=== PATIENT | female | born 1950 | race Caucasian/White ===

== ENCOUNTER → 2017-09-22 13:41 | Outpatient (CLI) | payer MEDICARE, OTHER, SELFPAY | PROVIDERS: Family Provider Family Medicine; PCP Family Medicine; Visit Provider Family Medicine | DX: R14.0 Abdominal distension (gaseous) (principal); R10.9 Unspecified abdominal pain | CPT/HCPCS: 91065 ==

== ENCOUNTER → 2017-10-31 08:25 | Outpatient (CLI) | payer MEDICARE, OTHER, SELFPAY ==
[2017-10-31 10:08] LABS: Add Manual Diff / Slide Review NO; Basophils Percent Auto 0.9 % (0-2); Eosinophils Percent Auto 4.2 % (2-4); Hematocrit 43.4 % (36-46); Hemoglobin 14.8 g/dL (12.0-16.0); Lymphocytes Percent Auto 38.6 % (25-40); Mean Corpuscular HGB Conc 34.1 % (30-36); Mean Corpuscular Volume 90.9 fL (80-100); Monocytes Percent Auto 9.4 % (3-14); Neutrophils Absolute Auto 2400 /uL (3000-5900); Neutrophils Percent Auto 46.9 % (50-75); Platelet Count 293 X10^3/uL (150-400); Red Blood Cell Count 4.78 X10^6/uL (4.0-5.2); Red Cell Distribution Width 12.5 % (11.6-14.8)
[2017-10-31 10:36] LABS: Alanine Aminotransferase 29 IU/L (9-52); Albumin 4.6 g/dL (3.5-5.0); Albumin Globulin Ratio 1.5 (1.0-2.8); Alkaline Phosphatase 44 U/L (38-126); Aspartate Aminotransferase 35 IU/L (14-36); BUN Creatinine Ratio 16.3 (6-22); Bilirubin Total 0.8 mg/dL (0.2-1.3); Blood Urea Nitrogen 13 mg/dL (7-17); Calcium 9.5 mg/dL (8.4-10.2); Carbon Dioxide 32 mmol/L (22-32); Chloride 100 mmol/L (98-107); Cholesterol 242 mg/dL (140-199); Estimated Glomerular Filt Rate > 60.0 mL/min (>60); Glucose 99 mg/dL (80-110); HDL Cholesterol 92 mg/dL (40-60); HEMOLYSIS < 15 (0-50); LDL Cholesterol Calculated 138 mg/dL (<100); Potassium 3.7 mmol/L (3.4-5.1); Sodium 142 mmol/L (137-145); Total Protein 7.6 g/dL (6.3-8.2); Triglycerides 62 mg/dL (35-150)
[2017-10-31 11:10] LABS: TSH w/ Reflex to FT4 0.83 uIU/mL (0.47-4.68)
== END ==
PROVIDERS: PCP Family Medicine; Visit Provider Family Medicine
DX: E03.9 Hypothyroidism, unspecified (principal); E78.2 Mixed hyperlipidemia; R03.0 Elevated blood-pressure reading, without diagnosis of hypertension
CPT/HCPCS: 36415; 80053; 80061; 84443; 85025

== ENCOUNTER → 2017-12-17 10:10 | Outpatient (CLI) | payer MEDICARE, OTHER, SELFPAY | PROVIDERS: Visit Provider Nurse Practitioner Family | DX: Z79.890 Hormone replacement therapy (principal); Z53.9 Procedure and treatment not carried out, unspecified reason ==

== ENCOUNTER → 2017-12-19 09:40 | Outpatient (CLI) | payer MEDICARE, OTHER, SELFPAY | PROVIDERS: Visit Provider Nurse Practitioner Family | DX: M85.851 Other specified disorders of bone density and structure, right thigh (principal); Z78.0 Asymptomatic menopausal state; E07.9 Disorder of thyroid, unspecified; Z90.722 Acquired absence of ovaries, bilateral | CPT/HCPCS: 77080 ==

== ENCOUNTER → 2018-03-02 13:27 | Outpatient (CLI) | payer MEDICARE, OTHER, SELFPAY ==
--- NOTE | 2018-03-02 13:34 | DI.MG.S_ITS ---
BILATERAL DIGITAL SCREENING MAMMOGRAM 3D/2D WITH CAD: 03/02/2018 CLINICAL: Routine screening. Comparison is made to exams dated: 03/15/2015 mammogram, 03/24/2013 mammogram, 03/18/2012 mammogram, and 03/07/2011 mammogram - [facility]. There are scattered fibroglandular elements in both breasts. Current study was also evaluated with a Computer Aided Detection (CAD) system. No significant masses, calcifications, or other findings are seen in either breast. There has been no significant interval change. IMPRESSION: NEGATIVE There is no mammographic evidence of malignancy. A 1 year screening mammogram is recommended. This exam was interpreted at Station ID: [id number]. NOTE: For mammograms, a report in lay terms will be sent to the patient. Approximately 15% of breast malignancies will not be visualized mammographically. In the management of a palpable breast mass, a negative mammogram must not discourage biopsy of a clinically suspicious lesion. Electronically Signed By: Palmer bui/codey:03/02/2018 20:39:57 letter sent: Normal Exam ACR BI-RADS Category 1: Negative 3341F
== END ==
PROVIDERS: PCP Family Medicine; Visit Provider Nurse Practitioner Family
DX: Z12.31 Encounter for screening mammogram for malignant neoplasm of breast (principal)
CPT/HCPCS: 77063; 77067

== ENCOUNTER → 2018-03-10 15:31 | Outpatient (CLI) | payer MEDICARE, OTHER, SELFPAY ==
--- NOTE | 2018-03-10 15:33 | DI.RAD.S_ITS ---
PROCEDURE: XR KNEE LT 3V INDICATIONS: L knee pain after fall TECHNIQUE: 3 views of the knee were acquired. COMPARISON: None. FINDINGS: Bones: No fractures or dislocations. No suspicious bony lesions. There appear to be early degenerative changes within the patellofemoral compartment with a small developing marginal osteophyte along the articular surface of the proximal and distal margins of the patella. Soft tissues: No joint effusion. No suspicious soft tissue calcifications. IMPRESSION: Early degenerative changes of the left knee. No fractures. Dictated by: Olivier Chan M.D. on 03/10/2018 at 15:27 Approved by: Olivier Chan M.D. on 03/10/2018 at 15:28
== END ==
PROVIDERS: Visit Provider Physician Assistant
DX: M25.562 Pain in left knee (principal); M17.12 Unilateral primary osteoarthritis, left knee
CPT/HCPCS: 73562

== ENCOUNTER → 2018-04-10 15:41 | Outpatient (CLI) | payer MEDICARE, OTHER, SELFPAY ==
[2018-04-10 16:14] LABS: Influenza A and B by PCR Rapid Negative (Negative)
== END ==
PROVIDERS: PCP Family Medicine; Visit Provider Physician Assistant
DX: R68.89 Other general symptoms and signs (principal)
CPT/HCPCS: 87400

== ENCOUNTER → 2018-12-02 09:56 | Outpatient (CLI) | payer MEDICARE, OTHER, SELFPAY ==
[2018-12-02 10:40] LABS: Add Manual Diff / Slide Review NO; Basophils Absolute Auto 0 /uL (0-100); Basophils Percent Auto 0.7 % (0-2); Eosinophils Absolute Auto 100 /uL (0-450); Eosinophils Percent Auto 1.7 % (2-4); Hematocrit 43.8 % (36-46); Hemoglobin 14.7 g/dL (12.0-16.0); Lymphocytes Absolute Auto 1200 /uL (1100-4500); Lymphocytes Percent Auto 19.5 % (25-40); Mean Corpuscular HGB Conc 33.5 % (30-36); Mean Corpuscular Hemoglobin 30.8 PG (26-34); Mean Corpuscular Volume 92.1 fL (80-100); Monocytes Absolute Auto 400 /uL (0-900); Neutrophils Absolute Auto 4200 /uL (1500-7000); Neutrophils Percent Auto 71.1 % (50-75); Platelet Count 263 X10^3/uL (150-400); Red Blood Cell Count 4.76 X10^6/uL (4.0-5.2); Red Cell Distribution Width 12.6 % (11.6-14.8); White Blood Cell Count 5.9 X10^3/uL (4.5-11.0)
[2018-12-02 11:31] LABS: Alanine Aminotransferase 22 IU/L (9-52); Albumin 4.5 g/dL (3.5-5.0); Albumin Globulin Ratio 1.7 (1.0-2.8); Alkaline Phosphatase 43 U/L (38-126); Aspartate Aminotransferase 24 IU/L (14-36); BUN Creatinine Ratio 15.7 (6-22); Bilirubin Total 0.7 mg/dL (0.2-1.3); Blood Urea Nitrogen 11 mg/dL (7-17); Calcium 9.7 mg/dL (8.4-10.2); Carbon Dioxide 30 mmol/L (22-32); Chloride 100 mmol/L (98-107); Cholesterol 232 mg/dL (140-199); Estimated Glomerular Filt Rate > 60.0 mL/min (>60); Globulin 2.7 g/dL (1.7-4.1); Glucose 96 mg/dL (80-110); HDL Cholesterol 105 mg/dL (40-60); HEMOLYSIS < 15 (0-50); LDL Cholesterol Calculated 111 mg/dL (<100); Sodium 139 mmol/L (137-145); Total Protein 7.2 g/dL (6.3-8.2); Triglycerides 78 mg/dL (35-150)
[2018-12-02 11:34] LABS: Free T3, Triiodothyronine Free 2.73 pg/mL (2.77-5.27); Free T4, Direct Thyroxine 1.55 ng/dL (0.78-2.19)
[2018-12-02 11:48] LABS: Thyroid Stimulating Hormone 0.68 uIU/mL (0.47-4.68)
[2018-12-02 12:20] LABS: Creatinine Urine Random 73.9 mg/dL
[2018-12-02 12:26] LABS: Microalbumi Creatinin Ratio Ur 8.1 ug/mg CR (<30); Microalbumin Urine Random < 0.6 mg/dL (0-1.6)
== END ==
PROVIDERS: PCP Family Medicine; Visit Provider Family Medicine
DX: E03.9 Hypothyroidism, unspecified (principal); E78.5 Hyperlipidemia, unspecified; I10 Essential (primary) hypertension
CPT/HCPCS: 36415; 80053; 80061; 82043; 82570; 84439; 84443; 84481; 85025

== ENCOUNTER → 2019-01-12 13:40 | Outpatient (CLI) | payer MEDICARE, OTHER, SELFPAY ==
--- NOTE | 2019-01-12 15:10 | PM.TREADMILL ---
Cardiac Stress Test Report Referral & Results Date Patient Seen: 01/12/19 Requesting provider: Klaudia Yost Indication: Chest discomfort Rest ECG: Unremarkable Procedure Note: Today following both written and verbal informed consent, the patient was exercised according to a standard Kelvin protocol. The patient exercised for a total of 7 minutes 32 seconds achieving a maximum heart rate of 181. Patient's maximum systolic blood pressure was 180. This was an estimated 10.1 MET's. There are no ST-T segment changes identified Normal heart rate and blood pressure response Functional aerobic impairment rated approximately-15% on the active scale or 50% better than average Occasional PVC Impression: No ECG evidence of ischemia Excellent exercise capacity Please note: Actual ECG tracings can be found in the PACS system.
== END ==
PROVIDERS: PCP Family Medicine; Visit Provider Family Medicine
DX: I10 Essential (primary) hypertension (principal); R06.02 Shortness of breath; R07.9 Chest pain, unspecified
CPT/HCPCS: 93016; 93017; 93018

== ENCOUNTER → 2020-01-06 08:32 | Outpatient (CLI) | payer MEDICARE, OTHER, SELFPAY ==
[2020-01-06 09:06] LABS: Add Manual Diff / Slide Review NO; Basophils Absolute Auto 0 /uL (0-100); Eosinophils Absolute Auto 200 /uL (0-450); Eosinophils Percent Auto 3.5 % (2-4); Hematocrit 42.6 % (36-46); Hemoglobin 14.4 g/dL (12.0-16.0); Lymphocytes Absolute Auto 1700 /uL (1100-4500); Lymphocytes Percent Auto 35.4 % (25-40); Mean Corpuscular HGB Conc 33.8 % (30-36); Mean Corpuscular Hemoglobin 30.8 PG (26-34); Mean Corpuscular Volume 91.1 fL (80-100); Monocytes Absolute Auto 500 /uL (0-900); Monocytes Percent Auto 9.2 % (3-14); Neutrophils Absolute Auto 2500 /uL (1500-7000); Neutrophils Percent Auto 50.9 % (50-75); Platelet Count 251 X10^3/uL (150-400); Red Blood Cell Count 4.67 X10^6/uL (4.0-5.2); Red Cell Distribution Width 12.5 % (11.6-14.8); White Blood Cell Count 4.9 X10^3/uL (4.5-11.0)
[2020-01-06 09:38] LABS: Alanine Aminotransferase 23 IU/L (<35); Albumin 4.3 g/dL (3.5-5.0); Albumin Globulin Ratio 1.5 (1.0-2.8); Alkaline Phosphatase 41 U/L (38-126); Aspartate Aminotransferase 28 IU/L (14-36); BUN Creatinine Ratio 15.1 (6-22); Bilirubin Total 0.8 mg/dL (0.2-1.3); Blood Urea Nitrogen 13 mg/dL (7-17); Calcium 9.6 mg/dL (8.4-10.2); Carbon Dioxide 33 mmol/L (22-32); Chloride 102 mmol/L (98-107); Cholesterol 238 mg/dL (140-199); Estimated Glomerular Filt Rate > 60.0 mL/min (>60); Globulin 2.9 g/dL (1.7-4.1); Glucose 101 mg/dL (80-110); HDL Cholesterol 106 mg/dL (40-60); HEMOLYSIS < 15 (0-50); LDL Cholesterol Calculated 120 mg/dL (<100); Potassium 3.9 mmol/L (3.4-5.1); Sodium 139 mmol/L (137-145); Total Protein 7.2 g/dL (6.3-8.2); Triglycerides 62 mg/dL (35-150)
[2020-01-06 09:40] LABS: Creatinine Urine Random 107.8 mg/dL
[2020-01-06 09:48] LABS: Microalbumin Urine Random < 0.6 mg/dL (0-1.6)
[2020-01-06 09:53] LABS: Free T3, Triiodothyronine Free 2.82 pg/mL (2.77-5.27); Free T4, Direct Thyroxine 1.15 ng/dL (0.78-2.19)
[2020-01-06 10:07] LABS: Thyroid Stimulating Hormone 0.334 uIU/mL (0.47-4.68)
== END ==
PROVIDERS: PCP Family Medicine; Referring Provider Family Medicine; Visit Provider Family Medicine
DX: E03.9 Hypothyroidism, unspecified (principal); E78.5 Hyperlipidemia, unspecified; I10 Essential (primary) hypertension
CPT/HCPCS: 36415; 80053; 80061; 82043; 82570; 84439; 84443; 84481; 85025

== ENCOUNTER → 2020-02-17 12:34 | Outpatient (CLI) | payer MEDICARE, OTHER, SELFPAY | PROVIDERS: PCP Family Medicine; Referring Provider Family Medicine; Visit Provider Family Medicine | DX: Z78.0 Asymptomatic menopausal state (principal); E03.9 Hypothyroidism, unspecified; Z79.890 Hormone replacement therapy; Z90.722 Acquired absence of ovaries, bilateral; Z82.62 Family history of osteoporosis | CPT/HCPCS: 77080 ==

== ENCOUNTER → 2020-08-22 11:15 | Outpatient (CLI) | payer MEDICARE, SELFPAY ==
--- NOTE | 2020-08-22 11:17 | DI.MG.S_ITS ---
BILATERAL DIGITAL SCREENING MAMMOGRAM 3D/2D WITH CAD: 08/22/2020 CLINICAL: Routine screening. Comparison is made to exams dated: 03/02/2018 mammogram, 03/15/2015 mammogram, and 03/24/2013 mammogram - [facility]. There are scattered fibroglandular elements in both breasts. Current study was also evaluated with a Computer Aided Detection (CAD) system. No significant masses, calcifications, or other findings are seen in either breast. There has been no significant interval change. IMPRESSION: NEGATIVE There is no mammographic evidence of malignancy. A 1 year screening mammogram is recommended. This exam was interpreted at Station ID: [id number]. NOTE: For mammograms, a report in lay terms will be sent to the patient. Approximately 15% of breast malignancies will not be visualized mammographically. In the management of a palpable breast mass, a negative mammogram must not discourage biopsy of a clinically suspicious lesion. Electronically Signed By: Sai Khanna M.D., jr/codey:08/22/2020 11:37:32 letter sent: Normal Exam ACR BI-RADS Category 1: Negative 3341F
== END ==
PROVIDERS: PCP Family Medicine; Referring Provider Family Medicine; Visit Provider Family Medicine
DX: Z12.31 Encounter for screening mammogram for malignant neoplasm of breast (principal)
CPT/HCPCS: 77063; 77067

== ENCOUNTER → 2021-01-15 07:33 | Outpatient (CLI) | payer MEDICARE, OTHER, SELFPAY ==
[2021-01-15 08:08] LABS: Add Manual Diff / Slide Review NO; Basophils Absolute Auto 100 /uL (0-100); Basophils Percent Auto 1.2 % (0-2); Eosinophils Absolute Auto 100 /uL (0-450); Eosinophils Percent Auto 2.7 % (2-4); Hematocrit 41.7 % (36-46); Hemoglobin 14.1 g/dL (12.0-16.0); Lymphocytes Absolute Auto 1800 /uL (1100-4500); Lymphocytes Percent Auto 35.9 % (25-40); Mean Corpuscular HGB Conc 33.7 % (30-36); Mean Corpuscular Hemoglobin 30.2 PG (26-34); Mean Corpuscular Volume 89.6 fL (80-100); Monocytes Absolute Auto 500 /uL (0-900); Monocytes Percent Auto 8.8 % (3-14); Neutrophils Absolute Auto 2600 /uL (1500-7000); Neutrophils Percent Auto 51.4 % (50-75); Platelet Count 268 X10^3/uL (150-400); Red Blood Cell Count 4.65 X10^6/uL (4.0-5.2); Red Cell Distribution Width 12.7 % (11.6-14.8); White Blood Cell Count 5.1 X10^3/uL (4.5-11.0)
[2021-01-15 08:28] LABS: Alanine Aminotransferase 17 IU/L (<35); Albumin 4.4 g/dL (3.5-5.0); Albumin Globulin Ratio 1.7 (1.0-2.8); Alkaline Phosphatase 38 U/L (38-126); Aspartate Aminotransferase 26 IU/L (14-36); BUN Creatinine Ratio 19.2 (6-22); Bilirubin Total 0.6 mg/dL (0.2-1.3); Blood Urea Nitrogen 14 mg/dL (7-17); Calcium 9.8 mg/dL (8.4-10.2); Carbon Dioxide 31 mmol/L (22-32); Chloride 103 mmol/L (98-107); Cholesterol 222 mg/dL (140-199); Estimated Glomerular Filt Rate > 60.0 mL/min (>60); Globulin 2.6 g/dL (1.7-4.1); Glucose 96 mg/dL (80-110); HDL Cholesterol 87 mg/dL (40-60); HEMOLYSIS < 15 (0-50); LDL Cholesterol Calculated 121 mg/dL (<100); Potassium 4.1 mmol/L (3.4-5.1); Sodium 140 mmol/L (137-145); Triglycerides 72 mg/dL (35-150)
[2021-01-15 08:53] LABS: TSH w/ Reflex to FT4 0.79 uIU/mL (0.47-4.68)
== END ==
PROVIDERS: PCP Family Medicine; Referring Provider Family Medicine; Visit Provider Family Medicine
DX: E03.9 Hypothyroidism, unspecified (principal); E78.2 Mixed hyperlipidemia; I10 Essential (primary) hypertension
CPT/HCPCS: 36415; 80053; 80061; 84443; 85025

== ENCOUNTER → 2021-10-03 15:21 | Outpatient (CLI) | payer MEDICARE, OTHER, SELFPAY ==
[2021-10-03 17:36] LABS: TSH w/ Reflex to FT4 0.66 uIU/mL (0.47-4.68)
== END ==
PROVIDERS: PCP Family Medicine; Referring Provider Physician Assistant; Visit Provider Physician Assistant
DX: R53.83 Other fatigue (principal)
CPT/HCPCS: 36415; 84443

== ENCOUNTER → 2022-02-15 07:38 | Outpatient (CLI) | payer MEDICARE, OTHER, SELFPAY ==
[2022-02-15 09:08] LABS: Add Manual Diff / Slide Review NO; Basophils Absolute Auto 0 /uL (0-100); Basophils Percent Auto 0.8 % (0-2); Eosinophils Absolute Auto 200 /uL (0-450); Eosinophils Percent Auto 4.2 % (2-4); Hematocrit 40.6 % (36-46); Hemoglobin 14.1 g/dL (12.0-16.0); Lymphocytes Absolute Auto 1400 /uL (1100-4500); Lymphocytes Percent Auto 37.5 % (25-40); Mean Corpuscular HGB Conc 34.7 % (30-36); Mean Corpuscular Hemoglobin 30.7 PG (26-34); Mean Corpuscular Volume 88.5 fL (80-100); Monocytes Absolute Auto 400 /uL (0-900); Monocytes Percent Auto 10.1 % (3-14); Neutrophils Absolute Auto 1800 /uL (1500-7000); Neutrophils Percent Auto 47.4 % (50-75); Platelet Count 264 X10^3/uL (150-400); Red Blood Cell Count 4.59 X10^6/uL (4.0-5.2); Red Cell Distribution Width 12.7 % (11.6-14.8); White Blood Cell Count 3.7 X10^3/uL (4.5-11.0)
[2022-02-15 10:00] LABS: Alanine Aminotransferase 21 IU/L (<35); Albumin 4.3 g/dL (3.5-5.0); Albumin Globulin Ratio 1.6 (1.0-2.8); Alkaline Phosphatase 45 U/L (38-126); Aspartate Aminotransferase 25 IU/L (14-36); Bilirubin Total 0.7 mg/dL (0.2-1.3); Blood Urea Nitrogen 10 mg/dL (7-17); Calcium 9.4 mg/dL (8.4-10.2); Carbon Dioxide 29 mmol/L (22-32); Chloride 102 mmol/L (98-107); Estimated Glomerular Filt Rate > 60 mL/min (>60); Globulin 2.7 g/dL (1.7-4.1); Glucose 90 mg/dL (80-110); HEMOLYSIS < 15 (0-50); Potassium 3.8 mmol/L (3.4-5.1); Sodium 138 mmol/L (137-145)
[2022-02-15 10:21] LABS: TSH w/ Reflex to FT4 1.05 uIU/mL (0.47-4.68)
== END ==
PROVIDERS: PCP Family Medicine; Referring Provider Family Medicine; Visit Provider Family Medicine
DX: K52.839 Microscopic colitis, unspecified (principal); E03.9 Hypothyroidism, unspecified
CPT/HCPCS: 36415; 80053; 84443; 85025

== ENCOUNTER → 2022-02-25 09:21 | Outpatient (CLI) | payer MEDICARE, OTHER, SELFPAY ==
[2022-02-25 10:21] LABS: Cholesterol 230 mg/dL (140-199); HDL Cholesterol 94 mg/dL (40-60); LDL Cholesterol Calculated 124 mg/dL (<100); Triglycerides 61 mg/dL (35-150)
== END ==
PROVIDERS: PCP Family Medicine; Referring Provider Family Medicine; Visit Provider Family Medicine
DX: I10 Essential (primary) hypertension (principal); E78.2 Mixed hyperlipidemia
CPT/HCPCS: 36415; 80061

== ENCOUNTER → 2022-03-13 08:51 | Outpatient (CLI) | payer MEDICARE, OTHER, SELFPAY ==
--- NOTE | 2022-03-13 08:52 | DI.US.S_ITS ---
PROCEDURE: US ABDOMEN LIMITED INDICATIONS: RUQ PAIN TECHNIQUE: Real-time scanning was performed of the abdominal and retroperitoneal organs, with image documentation. COMPARISON: None. FINDINGS: Liver: Liver is normal in size and homogeneous in echotexture. There is a simple cyst within the left hepatic lobe which measures 4.4 x 2.8 x 5.4 cm. Gallbladder: The gallbladder wall measures 1.9 mm in diameter. A nonobstructing calculus is present within the gallbladder fundus. Biliary ducts: Intrahepatic bile ducts are non-dilated. Extrahepatic bile duct caliber measures 6.3 mm. Normal is 6-7 mm or less in diameter, or 10 mm or less post-cholecystectomy. IMPRESSION: 1. Cholelithiasis. No findings to suggest choledocholithiasis or acute cholecystitis. 2. Simple left hepatic lobe cyst. It is unclear if this may be associated with the patient's pain. Please correlate with physical exam findings and area of pain. Dictated by: Nida Portillo M.D. on 03/13/2022 at 13:06 Approved by: Nida Portillo M.D. on 03/13/2022 at 13:21
== END ==
PROVIDERS: PCP Family Medicine; Referring Provider Family Medicine; Visit Provider Family Medicine
DX: K76.89 Other specified diseases of liver (principal); K80.20 Calculus of gallbladder without cholecystitis without obstruction; R10.11 Right upper quadrant pain
CPT/HCPCS: 76705

== ENCOUNTER → 2022-10-16 06:56 | Outpatient (CLI) | payer MEDICARE, OTHER, SELFPAY ==
[2022-10-16 07:46] LABS: Add Manual Diff / Slide Review NO; Basophils Absolute Auto 0 /uL (0-100); Basophils Percent Auto 1.1 % (0-2); Eosinophils Absolute Auto 200 /uL (0-450); Eosinophils Percent Auto 4.3 % (2-4); Hematocrit 38.6 % (36-46); Hemoglobin 13.2 g/dL (12.0-16.0); Lymphocytes Absolute Auto 1600 /uL (1100-4500); Lymphocytes Percent Auto 38.4 % (25-40); Mean Corpuscular HGB Conc 34.3 % (30-36); Mean Corpuscular Hemoglobin 30.3 PG (26-34); Mean Corpuscular Volume 88.2 fL (80-100); Monocytes Absolute Auto 300 /uL (0-900); Monocytes Percent Auto 8.3 % (3-14); Neutrophils Absolute Auto 2000 /uL (1500-7000); Neutrophils Percent Auto 47.9 % (50-75); Platelet Count 268 X10^3/uL (150-400); Red Blood Cell Count 4.37 X10^6/uL (4.0-5.2); White Blood Cell Count 4.2 X10^3/uL (4.5-11.0)
[2022-10-16 08:12] LABS: HEMOLYSIS < 15 (0-50); Iron 110 ug/dL (37-170)
[2022-10-16 08:14] LABS: Alanine Aminotransferase 23 IU/L (<35); Albumin 4.1 g/dL (3.5-5.0); Albumin Globulin Ratio 1.6 (1.0-2.8); Alkaline Phosphatase 38 U/L (38-126); Amylase 84 U/L (30-110); Aspartate Aminotransferase 25 IU/L (14-36); BUN Creatinine Ratio 17.4 (6-22); Bilirubin Total 0.6 mg/dL (0.2-1.3); Blood Urea Nitrogen 12 mg/dL (7-17); Carbon Dioxide 32 mmol/L (22-32); Chloride 102 mmol/L (98-107); Cholesterol 217 mg/dL (140-199); Estimated Glomerular Filt Rate > 60 mL/min (>60); Globulin 2.6 g/dL (1.7-4.1); Glucose 111 mg/dL (80-110); HDL Cholesterol 94 mg/dL (40-60); HEMOLYSIS < 15 (0-50); LDL Cholesterol Calculated 111 mg/dL (<100); Lipase 77 U/L (23-300); Potassium 3.6 mmol/L (3.4-5.1); Sodium 137 mmol/L (137-145); Total Protein 6.7 g/dL (6.3-8.2); Triglycerides 60 mg/dL (35-150)
[2022-10-16 08:22] LABS: Percent Iron Saturation 31 % (15-50); Total Iron Binding Capacity 350 ug/dL (265-497); Transferrin 255 mg/dL (206-381)
[2022-10-16 15:05] LABS: Vitamin B12 910 pg/mL (239-931)
== END ==
PROVIDERS: PCP Naturopath; Referring Provider Nurse Practitioner Family; Visit Provider Nurse Practitioner Family
DX: R10.13 Epigastric pain (principal); I10 Essential (primary) hypertension; R53.83 Other fatigue; K51.80 Other ulcerative colitis without complications; M62.831 Muscle spasm of calf; F41.9 Anxiety disorder, unspecified; F32.A Depression, unspecified; E78.41 Elevated Lipoprotein(a)
CPT/HCPCS: 36415; 80053; 80061; 82150; 82607; 83540; 83550; 83690; 85025

== ENCOUNTER → 2023-05-07 | Outpatient (CLI) | payer MEDICARE, OTHER, SELFPAY ==
--- NOTE | 2023-05-07 15:23 | DI.RAD.S_ITS ---
Bone Density Report Name: AURORA HOLCOMB Age: 72 Sex: Female Ethnicity: White Date of : 1950 Indication: postmenopausal; screening for osteoporosis; parental hip fracture; history of glucocorticoids; Referring Provider: UNSPECIFIED Study: Bone densitometry was performed. Exam Date: May 07, 2023 Accession number: [id number] Bone Density: Region BMD T-score Z-score Classification AP Spine(L1-L4) 0.970 -0.7 1.6 Normal Femoral Neck (Left) 0.750 -0.9 1.1 Normal Total Hip (Left) 0.871 -0.6 1.1 Normal Femoral Neck (Right) 0.707 -1.3 0.7 Osteopenia Total Hip (Right) 0.790 -1.2 0.4 Osteopenia Total Hip Mean 0.831 -0.9 0.8 Normal World Health Organization criteria for BMD impression classify patients as: Normal (T-score at or above -1.0), Osteopenia (T-score between -1.0 and -2.5), or Osteoporosis (T-score at or below -2.5). 10-year Fracture Risk(1): Major Osteoporotic Fracture 24% Hip Fracture 8.9% Reported Risk Factors: [place] (), Neck BMD=0.707, BMI=24.4, parental fracture, glucocorticoids (1) FRAX(R) Version 3.08. Fracture probability calculated for an untreated patient. Fracture probability may be lower if the patient has received treatment. Previous Exams: -- Region Exam Age BMD T-score BMD Change BMD Change Date g/cm2 vs Baseline vs Previous -- AP Spine (L1-L4) 05/07/2023 72 0.970 -0.7 -0.148 (-13.2%)# -0.122 (-11.2%)# 02/17/2020 69 1.091 0.4 -0.026 (-2.3%)* 0.007 (0.7%) 12/19/2017 67 1.084 0.3 -0.033 (-3.0%)* -0.033 (-3.0%)* 10/23/2015 65 1.118 0.6 Total Hip(Left) 05/07/2023 72 0.871 -0.6 -0.053 (-5.8%)# -0.015 (-1.7%)# 02/17/2020 69 0.886 -0.5 -0.038 (-4.1%)* 0.032 (3.8%)* 12/19/2017 67 0.854 -0.7 -0.071 (-7.6%)* -0.071 (-7.6%)* 10/23/2015 65 0.925 -0.1 Total Hip(Right) 05/07/2023 72 0.790 -1.2 -0.126 (-13.7%)# -0.043 (-5.1%)# 02/17/2020 69 0.833 -0.9 -0.083 (-9.1%)* 0.008 (0.9%) 12/19/2017 67 0.825 -1.0 -0.091 (-9.9%)* -0.091 (-9.9%)* 10/23/2015 65 0.916 -0.2 -- *Denotes significance at 95% confidence level, LSC for AP Spine = 0.022 g/cm2, LSC for Total Hip = 0.027 g/cm2 # Denotes dissimilar scan types or analysis methods Impression: The patient has low bone mass, based on the Right Femoral Neck T-score. The patient has an estimated ten-year risk of hip fracture of 8.9% and an estimated ten-year risk of major fracture of 24%, based on the WHO FRAX algorithm. The patient has risk factors, including: parental hip fracture, history of glucocorticoid therapy. No significant bone loss was observed. Discussion: BONE DENSITY IS LOW AT ONE OR MORE SKELETAL SITES. THE PATIENT'S BMD AND CLINICAL RISK FACTORS CONTRIBUTE TO THIS PATIENT'S HIGH RISK OF FRACTURE. This patient's lowest T-score is low at one or more skeletal sites. It meets the World Health Organization's (WHO) criteria for low bone mass (T-score between -1.0 and -2.5). The patient's 10-year risk of hip fracture and 10 year risk of a major osteoporotic fracture as calculated by FRAX exceeds the threshold where pharmacological therapy is recommended by the National Osteoporosis Foundation (NOF). However, all treatment decisions require clinical judgment and consideration of individual patient factors, including patient preferences, comorbidities, previous drug use, risk factors not captured in the FRAX model (e.g., frailty, falls, vitamin D deficiency, increased bone turnover, interval significant decline in bone density) and possible under or overestimation of fracture risk by FRAX. The patient should follow a healthful lifestyle (good nutrition with adequate calcium and vitamin D, and appropriate weight-bearing exercise). Follow-Up: Consider a repeat BMD and Vertebral Fracture Assessment (VFA) exam in 2 years or sooner if medically necessary, to reassess this patient's status. Reported by: [facility] KRISTEN VERAS M.D. on 05/07/2023 3:45:00 PM.
--- NOTE | 2023-05-07 15:23 | DI.MG.S_ITS ---
BILATERAL DIGITAL SCREENING MAMMOGRAM 3D/2D WITH CAD: 05/07/2023 CLINICAL: Routine screening. Comparison is made to exams dated: 08/22/2020 mammogram, 03/02/2018 mammogram, and 03/15/2015 mammogram - [facility]. Both breasts are heterogeneously dense, which may obscure small masses (category c / 51-75% glandular tissue). Current study was also evaluated with a Computer Aided Detection (CAD) system. No significant masses, calcifications, or other findings are seen in either breast. There has been no significant interval change. IMPRESSION: NEGATIVE There is no mammographic evidence of malignancy. A 1 year screening mammogram is recommended. Based on the Tyrer Cuzick model (a risk assessment model) the patient's lifetime risk is 5.7% and her 10 year risk is 4.2%. According to the ACR, ACS, and NCCN guidelines, an annual breast MRI exam along with mammogram is recommended if the patient's lifetime risk is 20% or greater. This exam was interpreted at Station ID: [id number]. NOTE: For mammograms, a report in lay terms will be sent to the patient. Approximately 15% of breast malignancies will not be visualized mammographically. In the management of a palpable breast mass, a negative mammogram must not discourage biopsy of a clinically suspicious lesion. Electronically Signed By: Brendan bajwa/codey:05/08/2023 16:35:56 letter sent: Normal Exam ACR BI-RADS Category 1: Negative 3341F
== END ==
PROVIDERS: PCP Naturopath; Referring Provider Nurse Practitioner Family; Visit Provider Nurse Practitioner Family
DX: M85.851 Other specified disorders of bone density and structure, right thigh (principal); Z12.31 Encounter for screening mammogram for malignant neoplasm of breast; R92.333 Mammographic heterogeneous density, bilateral breasts; Z78.0 Asymptomatic menopausal state
CPT/HCPCS: 77063; 77067; 77080

== ENCOUNTER → 2023-08-08 15:48 | Outpatient (CLI) | payer MEDICARE, OTHER, SELFPAY ==
--- NOTE | 2023-08-08 15:54 | DI.US.S_ITS ---
PROCEDURE: US ABDOMEN LIMITED INDICATIONS: RIGHT UPPER QUADRANT PAIN TECHNIQUE: Real-time scanning was performed of the abdominal and retroperitoneal organs, with image documentation. COMPARISON: [facility], , US ABDOMEN LIMITED, 03/13/2022, 8:58. FINDINGS: Liver: Homogeneous echotexture. No evidence of focal mass lesion. No intra hepatic biliary ductal dilatation. 4 cm left hepatic cyst. Unremarkable main portal vein Gallbladder: Sonolucent without cholelithiasis. Previously noted gallbladder calculus not visualized currently No gallbladder wall thickening. No pericholecystic fluid or Boyer's sign. Common Bile Duct: 6.4 mm. Pancreas: Unremarkable as visualized IMPRESSION: 1. Previously noted cholelithiasis not currently visualized. 2. Approved by: Luigi Thomas M.D. on 08/08/2023 at 18:51
== END ==
PROVIDERS: Family Provider Nurse Practitioner Family; PCP Nurse Practitioner Family; Referring Provider Nurse Practitioner Family; Visit Provider Nurse Practitioner Family
DX: R10.11 Right upper quadrant pain (principal)
CPT/HCPCS: 76705

== ENCOUNTER 2024-01-08 14:30 | Outpatient (RCR) | payer MEDICARE, OTHER, SELFPAY ==
--- NOTE | 2023-05-22 17:02 | PT.OIE ---
Current Diagnoses Cervicalgia (05/22/23) Abnormal posture (05/22/23) Past Medical History (Last Reviewed 04/05/22 @ 13:29 by Emilia Thompson MA) Cataract Degenerative myopia Eczema Essential hypertension Foot pain Fractures (1974) Gastrointestinal food allergy Generalized anxiety disorder Hearing loss (1999) Hyperlipidemia Hypothyroidism (~1989) Lichen sclerosus Microscopic colitis Peritonitis (01/15/88) Retinal detachment (~2009) Shoulder pain Sleep apnea (~2003) Tinnitus Past Surgical History (Last Reviewed 04/05/22 @ 13:29 by Emilia Thompson MA) History of eye surgery (2011) History of gynecologic surgery (01/15/88) History of shoulder surgery (2010) Status post appendectomy (1987) Status post delivery (01/11/88) Status post ovarian cystectomy (03/31/14) Status post tonsillectomy and adenoidectomy (1955) Visit Care Team Role Provider Type Jovanna Dove, MELCHOR, SAP PPM CONSULTANT Attending Provider Non-Staff Family Provider Primary Care Provider Referring Provider Specialty: Medical Address: [address] [place] [address], [id number] Email: Physical Therapy Initial Evaluation PT-OP-A Visit Information Start: 05/21/23 16:37 Freq: Status: Active Protocol: Document 05/22/23 08:12 [facility] (Rec: 05/22/23 09:02 [facility] [id number]) Out-Patient Physical Therapy Visit Information Visit Information Visit Type Initial Evaluation Visit Start Time 08:12 Visit Stop Time 09:15 Visit Number 1 Evaluation Information Evaluation Date 05/22/23 PT-OP-B Current Condition Start: 05/21/23 16:37 Freq: Status: Active Protocol: Document 05/22/23 08:12 [facility] (Rec: 05/22/23 09:02 [facility] [id number]) Current Condition History of Current Condition Current Complaints neck pain and left shoulder pain History of Current Condition HIstory RCR and frozen shoulder, arthritis, some other surgery left shoulder 10 + years ago. Reports chronic pain left sided neck . Went on vacation last fall fell while riding a bike; had shoulder and neck pain, shoulder pain better but neck pain persists. Patient does gentle yoga and exercise class; reports hurt her neck during exercise class , can't do jumping jacks Prior Treatments and Tests massage chiropractor x-ray: mild dynamic instagility at c3-4 level with gr 1 spondylolisthesis on flexion fiex miltilevel c/s spondylosis Treatment Goals Patient/Caregiver Goals decrease neck pain and be able to resume al usual activities Prior Functional Status Baseline Function- ADL's Independent Baseline Function- Mobility Independent Baseline Function- Recreation/Hobbies no restrictions Current Functional Impairments (Reported) Functional Limitations- ADL's difficulty reaching overhead, behind back Functional Limitations- Recreation/ has to limit and modify all Hobbies exercise and recreational activities PT-OP-C Subjective Start: 05/21/23 16:37 Freq: Status: Active Protocol: Document 05/22/23 08:12 [facility] (Rec: 05/22/23 17:00 [facility] [id number]) Patient Questionnaires Neck Disability Index NDI Score 28 OP-PT Pain Assessment Pain Assessment Grid Paper Pain Assessment Grid Completed Yes Location left c/s, shld Intensity 8 Description Aching,Tender,Tightness,With Movement Pain Aggravating Factors Activity,Exercise Pain Alleviating Factors Inactivity Pain Behaviors Pain Behaviors Facial Grimacing PT-OP-H Neuro Start: 05/21/23 16:37 Freq: Status: Active Protocol: Document 05/22/23 08:12 [facility] (Rec: 05/22/23 09:02 [facility] [id number]) Sensation Evaluation Gross Sensation Gross Sensation WNL PT-OP-J Posture/Palpation/Skin Start: 05/21/23 16:37 Freq: Status: Active Protocol: Document 05/22/23 08:12 [facility] (Rec: 05/22/23 09:02 [facility] [id number]) Posture Evaluation Position Sitting Head/C-Spine Posture Forward Head T-Spine Posture Increased Kyphosis Shoulder Posture (L) Rounded,(R) Rounded Scapula Posture (L) Protracted,(R) Protracted Arm Posture (L) Internally Rotated,(R) Internally Rotated Palpation Assessment Location c/s Palpation Findings Soft Tissue Tightness, Tenderness Palpation Details left lateral c/s upper trap Palpation Findings Soft Tissue Tightness PT-OP-K Range of Motion Start: 05/21/23 16:37 Freq: Status: Active Protocol: Document 05/22/23 08:12 [facility] (Rec: 05/22/23 09:02 [facility] [id number]) Cervical Spine Range of Motion Cervical Spine Active Testing Position Sitting Flexion 45 Extension 20 Rotation Left 72 Rotation Right 51 Lateral Flexion Left 43 Lateral Flexion Right 43 Shoulder Goniometric Range of Motion Shoulder Left Shoulder ROM WFL No Flexion 150 Extension 35 Abduction 160 Horizontal Abduction 80 External Rotation at 45 degrees 65 Abduction Internal Rotation Behind Back (text) T12 Right Shoulder ROM WFL Yes Elbow/Forearm Range of Motion Elbow/Forearm giorgi Elbow/Forearm ROM WFL Yes PT-OP-L Special Tests Start: 05/21/23 16:37 Freq: Status: Active Protocol: Document 05/22/23 08:12 [facility] (Rec: 05/22/23 09:02 [facility] [id number]) Special Tests Cervical Spine Special Tests Vertebral Artery Test Results - Alar Ligament Test Results - Foraminal Compression Test Results - Traction Test Results + dec pain Shoulder Special Tests Xiong Trey Impingement Test Results + L Drop Arm Rotator Cuff Test Results - PT-OP-Q Treatments Start: 05/21/23 16:37 Freq: Status: Active Protocol: Document 05/22/23 08:12 [facility] (Rec: 05/22/23 16:58 [facility] [id number]) Self-Care/Home Management Treatment Education Patient Education Home Exercise Program,Posture Other Education issued written HEP PT-OP-R Modalities Start: 05/21/23 16:37 Freq: Status: Active Protocol: Document 05/22/23 08:12 [facility] (Rec: 05/22/23 09:02 [facility] [id number]) Electric Stimulation Electric Stimulation Interferential Current (IFC) Body Location c/s,UT Intensity 15 Cycle Continuous Patient Position Hooklying Combined With Heat/Cold Hot Pack PT-OP-T Assessment and Plan Start: 05/21/23 16:37 Freq: Status: Active Protocol: Document 05/22/23 08:12 [facility] (Rec: 05/22/23 09:02 [facility] [id number]) Physical Therapy Assessment Rehab Potential Rehabilitation Potential Excellent Evaluation Complexity Number of Personal Factors/Comorbidities 1-2 Number of Body Systems Impaired 3 Clinical Presentation at Evaluation Evolving Impairments Impairments Pain,ROM,Soft Tissue Mobility Goals Three Impairment postural dysfunction Impairment forward head, rounded and internally rounded shoulders, forward left shoulder with weakness posterior chain musculature Short Term Goal (STG) Patient to be instructed in postural correction techniques and exercises for improved postural alignment and decreased pain STG Duration 06/20/23 Senior Living Goal (LTG) Patient to be independent and compliant with HEP and demonstrate improved postural alignment statically and dynamically with function LTG Duration 08/20/23 Two Impairment neck disability index score 28 % Short Term Goal (STG) Decrease neck disability index score to no greater than 20% as measure of improved neck function and activity tolerance STG Duration 06/20/23 Law Enforcement Instructor Goal (LTG) Decrease neck disability index score to no greater than 10% as measure of improved neck function and activity tolerance LTG Duration 08/20/23 One Impairment left sided neck pain as high as 8/10 Short Term Goal (STG) decrease pain to no greater than 5/10 with all usual activities STG Duration 06/20/23 Law Enforcement Instructor Goal (LTG) decrease pain to no greater than 2/10 with all usual activiites LTG Duration 08/20/23 Assessment Summary Assessment Patient presents to PT with function-limiting pain in her left cervical spine and upper shoulder. X-rays show mild dynamic instability at c3-4 level with gr 1 spondylolisthesis on flexion, multilevel c/s spondylosis. She has significant postural dysfunction and muscle imbalances in her left upper quadrant which also appear contributory. Moderate tightness subocciptal musculature. Feel patient would benefit from PT to improve her posture and strength and decrease her pain to allow her to return to all prior activities. Patient is highly motivated. POC was discussed and she was in agreement Physical Therapy Plan Frequency and Duration Frequency of Treatment 2x/Week Duration of treatment (weeks) 12 Plan of Care Start Date 05/22/23 Plan of Care End Date 08/20/23 Therapeutic Interventions Therapeutic Interventions Home Exercise Program,Manual Therapy,Neuromuscular Re- education,Patient/Caregiver Education,Self-Care/Home Management,Soft Tissue Mobilization,Taping, Therapeutic Activities, Therapeutic Exercises Modalities Cold Pack/Ice Massage,Electric Stimulation,Hot Packs, Infrared Therapy,Traction- Mechanical,Ultrasound Next Visit Focus/Plan Next Note Type Treatment Note Next Visit Plan Review HEP, work on postural correction exercises, suboccipital release, gentle manual traction and soft tissue mob. Update HEP as indicated. Modalities PRN pain.
--- NOTE | 2023-05-22 17:02 | PT.OPPOC ---
Physical, Occupational & Speech Therapy At [facility] Current Diagnoses Cervicalgia (05/22/23) Abnormal posture (05/22/23) Visit Care Team Role Provider Type Jovanna Dove, MELCHOR, CONCRETE BATCHER Attending Provider Non-Staff Family Provider Primary Care Provider Referring Provider Specialty: Medical Address: [address] [place] [address], [address] Email: Plan Of Care PT-OP-T Assessment and Plan Start: 05/21/23 16:37 Freq: Status: Active Protocol: Document 05/22/23 08:12 [facility] (Rec: 05/22/23 09:02 [facility] [id number]) Physical Therapy Assessment Rehab Potential Rehabilitation Potential Excellent Evaluation Complexity Number of Personal Factors/Comorbidities 1-2 Number of Body Systems Impaired 3 Clinical Presentation at Evaluation Evolving Impairments Impairments Pain,ROM,Soft Tissue Mobility Goals Three Impairment postural dysfunction Impairment forward head, rounded and internally rounded shoulders, forward left shoulder with weakness posterior chain musculature Short Term Goal (STG) Patient to be instructed in postural correction techniques and exercises for improved postural alignment and decreased pain STG Duration 06/20/23 Taxi Dancer Goal (LTG) Patient to be independent and compliant with HEP and demonstrate improved postural alignment statically and dynamically with function LTG Duration 08/20/23 Two Impairment neck disability index score 28 % Short Term Goal (STG) Decrease neck disability index score to no greater than 20% as measure of improved neck function and activity tolerance STG Duration 06/20/23 Taxi Dancer Goal (LTG) Decrease neck disability index score to no greater than 10% as measure of improved neck function and activity tolerance LTG Duration 08/20/23 One Impairment left sided neck pain as high as 8/10 Short Term Goal (STG) decrease pain to no greater than 5/10 with all usual activities STG Duration 06/20/23 Senior Care Goal (LTG) decrease pain to no greater than 2/10 with all usual activiites LTG Duration 08/20/23 Assessment Summary Assessment Patient presents to PT with function-limiting pain in her left cervical spine and upper shoulder. X-rays show mild dynamic instability at c3-4 level with gr 1 spondylolisthesis on flexion, multilevel c/s spondylosis. She has significant postural dysfunction and muscle imbalances in her left upper quadrant which also appear contributory. Moderate tightness subocciptal musculature. Feel patient would benefit from PT to improve her posture and strength and decrease her pain to allow her to return to all prior activities. Patient is highly motivated. POC was discussed and she was in agreement Physical Therapy Plan Frequency and Duration Frequency of Treatment 2x/Week Duration of treatment (weeks) 12 Plan of Care Start Date 05/22/23 Plan of Care End Date 08/20/23 Therapeutic Interventions Therapeutic Interventions Home Exercise Program,Manual Therapy,Neuromuscular Re- education,Patient/Caregiver Education,Self-Care/Home Management,Soft Tissue Mobilization,Taping, Therapeutic Activities, Therapeutic Exercises Modalities Cold Pack/Ice Massage,Electric Stimulation,Hot Packs, Infrared Therapy,Traction- Mechanical,Ultrasound Next Visit Focus/Plan Next Note Type Treatment Note Next Visit Plan Review HEP, work on postural correction exercises, suboccipital release, gentle manual traction and soft tissue mob. Update HEP as indicated. Modalities PRN pain. Plan of Care Dates Plan of Care Start Date 05/22/23 Plan of Care End Date 08/20/23 Electronically Signed by: Ling Coronel, PT 05/22/23 6050 If you are in agreement with this Plan of Care, please return a signed and dated copy. I have reviewed this Plan of Care and certify that the skilled therapy services above are required to meet the patient?s needs. Physician Signature Date Printed Name and Credentials Clinical Instructor Signature Printed Name and Credentials
--- NOTE | 2023-05-27 11:54 | PT.OTN ---
Current Diagnoses Cervicalgia (05/27/23) Abnormal posture (05/27/23) Physical Therapy Treatment Note PT-OP-A Visit Information Start: 05/21/23 16:37 Freq: Status: Active Protocol: Document 05/27/23 10:31 SAK (Rec: 05/27/23 11:19 SAK [id number]) Out-Patient Physical Therapy Visit Information Visit Information Visit Type Treatment Note Visit Start Time 10:30 Visit Stop Time 11:15 Visit Number 2 Evaluation Information Evaluation Date 05/22/23 PT-OP-B Current Condition Start: 05/21/23 16:37 Freq: Status: Active Protocol: Document 05/22/23 08:12 SAK (Rec: 05/22/23 09:02 [facility] [id number]) Current Condition History of Current Condition Current Complaints neck pain and left shoulder pain History of Current Condition HIstory RCR and frozen shoulder, arthritis, some other surgery left shoulder 10 + years ago. Reports chronic pain left sided neck . Went on vacation last fall fell while riding a bike; had shoulder and neck pain, shoulder pain better but neck pain persists. Patient does gentle yoga and exercise class; reports hurt her neck during exercise class , can't do jumping jacks Prior Treatments and Tests massage chiropractor x-ray: mild dynamic instagility at c3-4 level with gr 1 spondylolisthesis on flexion fiex miltilevel c/s spondylosis Treatment Goals Patient/Caregiver Goals decrease neck pain and be able to resume al usual activities Prior Functional Status Baseline Function- ADL's Independent Baseline Function- Mobility Independent Baseline Function- Recreation/Hobbies no restrictions Current Functional Impairments (Reported) Functional Limitations- ADL's difficulty reaching overhead, behind back Functional Limitations- Recreation/ has to limit and modify all Hobbies exercise and recreational activities PT-OP-C Subjective Start: 05/21/23 16:37 Freq: Status: Active Protocol: Document 05/27/23 10:31 SAK (Rec: 05/27/23 11:19 SAK [id number]) OP-PT Subjective Patient Comments Patient Comments Working hard on postural changes as recommended including thumbs forward with hiking yesterday, not holding phone or tablet down low, neck lengthening. PT-OP-H Neuro Start: 05/21/23 16:37 Freq: Status: Active Protocol: Document 05/22/23 08:12 SAK (Rec: 05/22/23 09:02 [facility] [id number]) Sensation Evaluation Gross Sensation Gross Sensation WNL PT-OP-J Posture/Palpation/Skin Start: 05/21/23 16:37 Freq: Status: Active Protocol: Document 05/22/23 08:12 [facility] (Rec: 05/22/23 09:02 [facility] [id number]) Posture Evaluation Position Sitting Head/C-Spine Posture Forward Head T-Spine Posture Increased Kyphosis Shoulder Posture (L) Rounded,(R) Rounded Scapula Posture (L) Protracted,(R) Protracted Arm Posture (L) Internally Rotated,(R) Internally Rotated Palpation Assessment Location c/s Palpation Findings Soft Tissue Tightness, Tenderness Palpation Details left lateral c/s upper trap Palpation Findings Soft Tissue Tightness PT-OP-K Range of Motion Start: 05/21/23 16:37 Freq: Status: Active Protocol: Document 05/22/23 08:12 [facility] (Rec: 05/22/23 09:02 [facility] [id number]) Cervical Spine Range of Motion Cervical Spine Active Testing Position Sitting Flexion 45 Extension 20 Rotation Left 72 Rotation Right 51 Lateral Flexion Left 43 Lateral Flexion Right 43 Shoulder Goniometric Range of Motion Shoulder Left Shoulder ROM WFL No Flexion 150 Extension 35 Abduction 160 Horizontal Abduction 80 External Rotation at 45 degrees 65 Abduction Internal Rotation Behind Back (text) T12 Right Shoulder ROM WFL Yes Elbow/Forearm Range of Motion Elbow/Forearm giorgi Elbow/Forearm ROM WFL Yes PT-OP-L Special Tests Start: 05/21/23 16:37 Freq: Status: Active Protocol: Document 05/22/23 08:12 [facility] (Rec: 05/22/23 09:02 [facility] [id number]) Special Tests Cervical Spine Special Tests Vertebral Artery Test Results - Alar Ligament Test Results - Foraminal Compression Test Results - Traction Test Results + dec pain Shoulder Special Tests Xiong Trey Impingement Test Results + L Drop Arm Rotator Cuff Test Results - PT-OP-Q Treatments Start: 05/21/23 16:37 Freq: Status: Active Protocol: Document 05/27/23 10:31 [facility] (Rec: 05/27/23 11:19 [facility] [id number]) Therapeutic Exercises Supine Exercises lat stretch Reps/Minutes 2x30 Comments with cues for neck lengthening pec stretch Reps/Minutes 2x30 Comments with cues for neck lengthening neck lengthening Reps/Minutes 5x5 Standing Exercises shoulder shrugs Standing Exercise Name unil Reps/Minutes 5x shoulder roll Reps/Minutes 5x wall slide Reps/Minutes 5x Comments cues for shoulder shrug at 90 deg shoulder ER Equipment Used L1 TB Reps/Minutes 10x Comments postural cues shoulder ext Equipment Used L1 TB Reps/Minutes 10x Comments postural cues row Resistance L1 TB Reps/Minutes 10x Comments postural cues wall posture Reps/Minutes 10x Self-Care/Home Management Treatment Education Patient Education Home Exercise Program,Posture Other Education Issued updated HEP for wall slide with scap shrug, handout showing increased cervical pressure with forward head. PT-OP-R Modalities Start: 05/21/23 16:37 Freq: Status: Active Protocol: Document 05/27/23 10:31 SAK (Rec: 05/27/23 11:19 SAK [id number]) Hot Pack/Cold Pack Treatment ice Location neck Patient Position Supine Patient Tolerance Good Spinal Traction Traction Treatment Cervical Method Static Patient Position Supine Force Applied (Pounds) 15 Traction Treatment Comment in c/s flex, discomfort last minute, f/b ice PT-OP-T Assessment and Plan Start: 05/21/23 16:37 Freq: Status: Active Protocol: Document 05/27/23 10:31 SAK (Rec: 05/27/23 11:54 [facility] [id number]) Physical Therapy Assessment Goals Three Impairment postural dysfunction Impairment forward head, rounded and internally rounded shoulders, forward left shoulder with weakness posterior chain musculature Short Term Goal (STG) Patient to be instructed in postural correction techniques and exercises for improved postural alignment and decreased pain STG Duration 06/20/23 Band Ripsaw Operator Goal (LTG) Patient to be independent and compliant with HEP and demonstrate improved postural alignment statically and dynamically with function LTG Duration 08/20/23 Two Impairment neck disability index score 28 % Short Term Goal (STG) Decrease neck disability index score to no greater than 20% as measure of improved neck function and activity tolerance STG Duration 06/20/23 Band Ripsaw Operator Goal (LTG) Decrease neck disability index score to no greater than 10% as measure of improved neck function and activity tolerance LTG Duration 08/20/23 One Impairment left sided neck pain as high as 8/10 Short Term Goal (STG) decrease pain to no greater than 5/10 with all usual activities STG Duration 06/20/23 Alf Goal (LTG) decrease pain to no greater than 2/10 with all usual activiites LTG Duration 08/20/23 Assessment Summary Assessment Patient compiant to HEP and working on postural correction . demonstrated improving understanding of postural correction principles in all positions today with most frequent cues for c/s lengthening. Trial gentle CTx today. Physical Therapy Plan Frequency and Duration Frequency of Treatment 2x/Week Duration of treatment (weeks) 12 Plan of Care Start Date 05/22/23 Plan of Care End Date 08/20/23 Therapeutic Interventions Therapeutic Interventions Home Exercise Program,Manual Therapy,Neuromuscular Re- education,Patient/Caregiver Education,Self-Care/Home Management,Soft Tissue Mobilization,Taping, Therapeutic Activities, Therapeutic Exercises Modalities Cold Pack/Ice Massage,Electric Stimulation,Hot Packs, Infrared Therapy,Traction- Mechanical,Ultrasound Next Visit Focus/Plan Next Note Type Treatment Note Next Visit Plan Assess response to today's treatment, continue postural correction education and ther ex, gentle c/s ROM and strengtheing. consider c/s [place]rett. Manual therapy and modalities PRN pain
--- NOTE | 2023-05-29 10:53 | PT.OTN ---
Current Diagnoses Cervicalgia (05/29/23) Abnormal posture (05/29/23) Physical Therapy Treatment Note PT-OP-A Visit Information Start: 05/21/23 16:37 Freq: Status: Active Protocol: Document 05/29/23 08:25 AB (Rec: 05/29/23 10:53 AB [id number]) Out-Patient Physical Therapy Visit Information Visit Information Visit Type Treatment Note Visit Start Time 09:45 Visit Stop Time 10:31 Visit Number 3 Number of CHILD [facility]ARE C[facility] ASSISTANT DIRECTOR Visits 1 Evaluation Information Evaluation Date 05/22/23 PT-OP-B Current Condition Start: 05/21/23 16:37 Freq: Status: Active Protocol: Document 05/22/23 08:12 SAK (Rec: 05/22/23 09:02 SAK [id number]) Current Condition History of Current Condition Current Complaints neck pain and left shoulder pain History of Current Condition HIstory RCR and frozen shoulder, arthritis, some other surgery left shoulder 10 + years ago. Reports chronic pain left sided neck . Went on vacation last fall fell while riding a bike; had shoulder and neck pain, shoulder pain better but neck pain persists. Patient does gentle yoga and exercise class; reports hurt her neck during exercise class , can't do jumping jacks Prior Treatments and Tests massage chiropractor x-ray: mild dynamic instagility at c3-4 level with gr 1 spondylolisthesis on flexion fiex miltilevel c/s spondylosis Treatment Goals Patient/Caregiver Goals decrease neck pain and be able to resume al usual activities Prior Functional Status Baseline Function- ADL's Independent Baseline Function- Mobility Independent Baseline Function- Recreation/Hobbies no restrictions Current Functional Impairments (Reported) Functional Limitations- ADL's difficulty reaching overhead, behind back Functional Limitations- Recreation/ has to limit and modify all Hobbies exercise and recreational activities PT-OP-C Subjective Start: 05/21/23 16:37 Freq: Status: Active Protocol: Document 05/29/23 08:25 AB (Rec: 05/29/23 10:53 AB [id number]) OP-PT Subjective Patient Comments Patient Comments Patient reports she is better, reports the left side of the neck is less painful. Saritha reports sleeping continues to be a problem, wakes up in pain , left shoulder and neck. Patient reports she was good post previous treatment. PT-OP-H Neuro Start: 05/21/23 16:37 Freq: Status: Active Protocol: Document 05/22/23 08:12 SAK (Rec: 05/22/23 09:02 [facility] [id number]) Sensation Evaluation Gross Sensation Gross Sensation WNL PT-OP-J Posture/Palpation/Skin Start: 05/21/23 16:37 Freq: Status: Active Protocol: Document 05/22/23 08:12 [facility] (Rec: 05/22/23 09:02 [facility] [id number]) Posture Evaluation Position Sitting Head/C-Spine Posture Forward Head T-Spine Posture Increased Kyphosis Shoulder Posture (L) Rounded,(R) Rounded Scapula Posture (L) Protracted,(R) Protracted Arm Posture (L) Internally Rotated,(R) Internally Rotated Palpation Assessment Location c/s Palpation Findings Soft Tissue Tightness, Tenderness Palpation Details left lateral c/s upper trap Palpation Findings Soft Tissue Tightness PT-OP-K Range of Motion Start: 05/21/23 16:37 Freq: Status: Active Protocol: Document 05/22/23 08:12 [facility] (Rec: 05/22/23 09:02 [facility] [id number]) Cervical Spine Range of Motion Cervical Spine Active Testing Position Sitting Flexion 45 Extension 20 Rotation Left 72 Rotation Right 51 Lateral Flexion Left 43 Lateral Flexion Right 43 Shoulder Goniometric Range of Motion Shoulder Left Shoulder ROM WFL No Flexion 150 Extension 35 Abduction 160 Horizontal Abduction 80 External Rotation at 45 degrees 65 Abduction Internal Rotation Behind Back (text) T12 Right Shoulder ROM WFL Yes Elbow/Forearm Range of Motion Elbow/Forearm giorgi Elbow/Forearm ROM WFL Yes PT-OP-L Special Tests Start: 05/21/23 16:37 Freq: Status: Active Protocol: Document 05/22/23 08:12 [facility] (Rec: 05/22/23 09:02 [facility] [id number]) Special Tests Cervical Spine Special Tests Vertebral Artery Test Results - Alar Ligament Test Results - Foraminal Compression Test Results - Traction Test Results + dec pain Shoulder Special Tests Xiong Trey Impingement Test Results + L Drop Arm Rotator Cuff Test Results - PT-OP-Q Treatments Start: 05/21/23 16:37 Freq: Status: Active Protocol: Document 05/29/23 08:25 AB (Rec: 05/29/23 10:53 AB [id number]) Therapeutic Exercises Supine Exercises pec stretch on 1/2 soft foam roller Side bilateral Reps/Minutes 2 min Comments VC for UE position and breathing from diaphragm CS rotation AROM Side bilateral Reps/Minutes X10 Comments Verbal cues to perform slowly Sitting Exercises seated pec stretch Sitting Exercise Name hands behind head Reps/Minutes X1 Comments not pedro, reports left shoulder discomfort deep nec flexor isometric reactive Reps/Minutes X10 Comments VC for tech, monit for pain CS rotation with pillows under UE's Side bilateral Reps/Minutes X10 Comments Verbal cues to perform slowly in pain free range with pillows under UE's with breathing from diaphragm Side bilateral Reps/Minutes 2 min Comments Verbal cues to breath from diaphragm, Pat ed to perform when riding in car Other Exercises quadruped CS rotation Side bilateral Reps/Minutes X20 Comments VC to perform very slowly in pain free range Manual Therapy Treatment Soft Tissue Mobilization Scalenes at lateral clavicle, UT, levator scap, CS paraspinals, intervertebral tissue Body Location bilateral Mobilization Type Cross-Friction,Rolling Body Position Seated Comments Monitored for pain, performed prior to exercise Manual Techniques chin tuck Reps/Duration X5 Comments Performed with therapists fingers under occiput. Patient ed to decrease force by 50%. Good return demonstration, monitored for pain. occipital release, gentle manual traction Body Position Hooklying Comments Monitored for pain, VC to look up with eyes intermittently Self-Care/Home Management Treatment Activities Self-Care/Home Management Activities quadruped and seated AROM CS rotation, chest cloth opener hand, and breathing from diaphragm added to HEP PT-OP-R Modalities Start: 05/21/23 16:37 Freq: Status: Active Protocol: Document 05/27/23 10:31 SAK (Rec: 05/27/23 11:19 SAK [id number]) Hot Pack/Cold Pack Treatment ice Location neck Patient Position Supine Patient Tolerance Good Spinal Traction Traction Treatment Cervical Method Static Patient Position Supine Force Applied (Pounds) 15 Traction Treatment Comment in c/s flex, discomfort last minute, f/b ice PT-OP-T Assessment and Plan Start: 05/21/23 16:37 Freq: Status: Active Protocol: Document 05/29/23 08:25 AB (Rec: 05/29/23 10:53 AB [id number]) Physical Therapy Assessment Goals Three Impairment postural dysfunction Impairment forward head, rounded and internally rounded shoulders, forward left shoulder with weakness posterior chain musculature Short Term Goal (STG) Patient to be instructed in postural correction techniques and exercises for improved postural alignment and decreased pain STG Duration 06/20/23 [facility] Goal (LTG) Patient to be independent and compliant with HEP and demonstrate improved postural alignment statically and dynamically with function LTG Duration 08/20/23 Two Impairment neck disability index score 28 % Short Term Goal (STG) Decrease neck disability index score to no greater than 20% as measure of improved neck function and activity tolerance STG Duration 06/20/23 Contract Processor Goal (LTG) Decrease neck disability index score to no greater than 10% as measure of improved neck function and activity tolerance LTG Duration 08/20/23 One Impairment left sided neck pain as high as 8/10 Short Term Goal (STG) decrease pain to no greater than 5/10 with all usual activities STG Duration 06/20/23 Contract Processor Goal (LTG) decrease pain to no greater than 2/10 with all usual activiites LTG Duration 08/20/23 Assessment Summary Assessment Saritha reports neck feels looser when performing CS rotation AROM post manual therapy and exercise, reports some soreness left pec end of session. Discomfort left sided neck persists per patient. Physical Therapy Plan Frequency and Duration Frequency of Treatment 2x/Week Duration of treatment (weeks) 12 Plan of Care Start Date 05/22/23 Plan of Care End Date 08/20/23 Next Visit Focus/Plan Next Note Type Treatment Note Next Visit Plan Assess response to today's treatment, continue postural correction education and ther ex, gentle c/s ROM and strengtheing/revisit deep neck flexor isomet, consider c/s everett. Manual therapy and modalities PRN pain. Possibly review seated positioning and sleeping positioning.Review/ progress rows.
--- NOTE | 2023-06-03 16:24 | PT.OTN ---
Current Diagnoses Cervicalgia (06/03/23) Abnormal posture (06/03/23) Physical Therapy Treatment Note PT-OP-A Visit Information Start: 05/21/23 16:37 Freq: Status: Active Protocol: Document 06/03/23 13:00 SAK (Rec: 06/03/23 13:50 [facility] [id number]) Out-Patient Physical Therapy Visit Information Visit Information Visit Type Treatment Note Visit Start Time 13:01 Visit Stop Time 13:56 Visit Number 4 Number of SPECIMEN TECHNICIAN Visits 0 Evaluation Information Evaluation Date 05/22/23 PT-OP-B Current Condition Start: 05/21/23 16:37 Freq: Status: Active Protocol: Document 06/03/23 13:00 SAK (Rec: 06/03/23 13:50 [facility] [id number]) Current Condition History of Current Condition Current Complaints neck pain and left shoulder pain History of Current Condition HIstory RCR and frozen shoulder, arthritis, some other surgery left shoulder 10 + years ago. Reports chronic pain left sided neck . Went on vacation last fall fell while riding a bike; had shoulder and neck pain, shoulder pain better but neck pain persists. Patient does gentle yoga and exercise class; reports hurt her neck during exercise class , can't do jumping jacks Prior Treatments and Tests massage chiropractor x-ray: mild dynamic instagility at c3-4 level with gr 1 spondylolisthesis on flexion fiex miltilevel c/s spondylosis PT-OP-C Subjective Start: 05/21/23 16:37 Freq: Status: Active Protocol: Document 06/03/23 13:00 SAK (Rec: 06/03/23 13:50 [facility] [id number]) OP-PT Subjective Patient Comments Patient Comments Neck much better though woke up in bed and had to put heat on neck possibly due to odd positioning in bed. Getting new bed Friday. Foam roller too aggressive, will try pool noodle per PT recommendation. Shoulder hurting more than neck today. PT-OP-H Neuro Start: 05/21/23 16:37 Freq: Status: Active Protocol: Document 05/22/23 08:12 SAK (Rec: 05/22/23 09:02 [facility] [id number]) Sensation Evaluation Gross Sensation Gross Sensation WNL PT-OP-J Posture/Palpation/Skin Start: 05/21/23 16:37 Freq: Status: Active Protocol: Document 05/22/23 08:12 [facility] (Rec: 05/22/23 09:02 [facility] [id number]) Posture Evaluation Position Sitting Head/C-Spine Posture Forward Head T-Spine Posture Increased Kyphosis Shoulder Posture (L) Rounded,(R) Rounded Scapula Posture (L) Protracted,(R) Protracted Arm Posture (L) Internally Rotated,(R) Internally Rotated Palpation Assessment Location c/s Palpation Findings Soft Tissue Tightness, Tenderness Palpation Details left lateral c/s upper trap Palpation Findings Soft Tissue Tightness PT-OP-K Range of Motion Start: 05/21/23 16:37 Freq: Status: Active Protocol: Document 05/22/23 08:12 [facility] (Rec: 05/22/23 09:02 [facility] [id number]) Cervical Spine Range of Motion Cervical Spine Active Testing Position Sitting Flexion 45 Extension 20 Rotation Left 72 Rotation Right 51 Lateral Flexion Left 43 Lateral Flexion Right 43 Shoulder Goniometric Range of Motion Shoulder Left Shoulder ROM WFL No Flexion 150 Extension 35 Abduction 160 Horizontal Abduction 80 External Rotation at 45 degrees 65 Abduction Internal Rotation Behind Back (text) T12 Right Shoulder ROM WFL Yes Elbow/Forearm Range of Motion Elbow/Forearm giorgi Elbow/Forearm ROM WFL Yes PT-OP-L Special Tests Start: 05/21/23 16:37 Freq: Status: Active Protocol: Document 05/22/23 08:12 [facility] (Rec: 05/22/23 09:02 [facility] [id number]) Special Tests Cervical Spine Special Tests Vertebral Artery Test Results - Alar Ligament Test Results - Foraminal Compression Test Results - Traction Test Results + dec pain Shoulder Special Tests Xiong Trey Impingement Test Results + L Drop Arm Rotator Cuff Test Results - PT-OP-Q Treatments Start: 05/21/23 16:37 Freq: Status: Active Protocol: Document 06/03/23 13:00 [facility] (Rec: 06/03/23 13:50 [facility] [id number]) Therapeutic Exercises Supine Exercises pec stretch on 1/2 soft foam roller Comments did not tolerate pec stretch Equipment Used pool noodle Reps/Minutes 2x30 Comments with cues for neck lengthening neck lengthening Reps/Minutes 5x5 Sidelying Exercises open book Reps/Minutes 5x Comments VC and tactile cues for movement entire upper quadrant segmentally, deep br Sitting Exercises cervical isometric Comments discussed using head rest, gentle pressure;review seated pec stretch Comments hold deep nec flexor isometric reactive Reps/Minutes X10 Comments VC for tech, pain-free intensity CS rotation with pillows under UE's Side bilateral Reps/Minutes X10 Comments Verbal cues to perform slowly in pain free range Standing Exercises doorway stretch Reps/Minutes 2x Comments 60 degrees tolerated. add to HEP next session wall push up Reps/Minutes 10x Comments cues for plank body positioning, pain-free ROM/ distance from wall wall slide Reps/Minutes 5x Comments cues for shoulder shrug at 90 deg shoulder ER Equipment Used L1 TB Reps/Minutes 10x Comments postural cues shoulder ext Equipment Used L1 TB Reps/Minutes 10x Comments postural cues row Resistance L1 TB Reps/Minutes 10x Comments postural cues wall posture Reps/Minutes 10x Comments cues to start with core activation, feel growing taller Manual Therapy Treatment Soft Tissue Mobilization UT, c/s Mobilization Type Myofascial Release,Sustained Pressure Comments also instructed in use of Theracane, consider for home use as well as tennis ball in sock for self massage Manual Techniques chin tuck Type review Reps/Duration X5 Comments Performed with therapists fingers under occiput. Patient ed to decrease force by 50%. Good return demonstration, monitored for pain. occipital release, gentle manual traction Body Position Hooklying PT-OP-R Modalities Start: 05/21/23 16:37 Freq: Status: Active Protocol: Document 06/03/23 13:00 [facility] (Rec: 06/03/23 16:24 [facility] [id number]) Hot Pack/Cold Pack Treatment ice Location neck Patient Position Supine Patient Tolerance Good Spinal Traction Traction Treatment Cervical Method Static Patient Position Supine Force Applied (Pounds) 17 Traction Treatment Comment in c/s flex, discomfort last minute, f/b ice PT-OP-T Assessment and Plan Start: 05/21/23 16:37 Freq: Status: Active Protocol: Document 06/03/23 13:00 [facility] (Rec: 06/03/23 16:24 [facility] [id number]) Physical Therapy Assessment Goals Three Impairment postural dysfunction Impairment forward head, rounded and internally rounded shoulders, forward left shoulder with weakness posterior chain musculature Short Term Goal (STG) Patient to be instructed in postural correction techniques and exercises for improved postural alignment and decreased pain STG Duration 06/20/23 Distillery Worker Goal (LTG) Patient to be independent and compliant with HEP and demonstrate improved postural alignment statically and dynamically with function LTG Duration 08/20/23 Two Impairment neck disability index score 28 % Short Term Goal (STG) Decrease neck disability index score to no greater than 20% as measure of improved neck function and activity tolerance STG Duration 06/20/23 Distillery Worker Goal (LTG) Decrease neck disability index score to no greater than 10% as measure of improved neck function and activity tolerance LTG Duration 08/20/23 One Impairment left sided neck pain as high as 8/10 Short Term Goal (STG) decrease pain to no greater than 5/10 with all usual activities STG Duration 06/20/23 Distillery Worker Goal (LTG) decrease pain to no greater than 2/10 with all usual activiites LTG Duration 08/20/23 Physical Therapy Plan Frequency and Duration Frequency of Treatment 2x/Week Duration of treatment (weeks) 12 Plan of Care Start Date 05/22/23 Plan of Care End Date 08/20/23 Therapeutic Interventions Therapeutic Interventions Home Exercise Program,Manual Therapy,Neuromuscular Re- education,Patient/Caregiver Education,Self-Care/Home Management,Soft Tissue Mobilization,Taping, Therapeutic Activities, Therapeutic Exercises Modalities Cold Pack/Ice Massage,Electric Stimulation,Hot Packs, Infrared Therapy,Traction- Mechanical,Ultrasound Next Visit Focus/Plan Next Note Type Treatment Note Next Visit Plan Continue gentle ther ex progression for c/s and shoulder ROM and strengthening , postural training and correction. Modalities and manual therapy as indicated to decrease muscle tension and pain
--- NOTE | 2023-06-09 12:12 | PT-OP ANOTE ---
cancelled due to weather
--- NOTE | 2023-06-12 11:15 | PT.OTN ---
Current Diagnoses Cervicalgia (06/12/23) Abnormal posture (06/12/23) Physical Therapy Treatment Note PT-OP-A Visit Information Start: 05/21/23 16:37 Freq: Status: Active Protocol: Document 06/12/23 09:02 [facility] (Rec: 06/12/23 09:47 [facility] [id number]) Out-Patient Physical Therapy Visit Information Visit Information Visit Type Treatment Note Visit Start Time 09:00 Visit Stop Time 09:55 Visit Number 5 Evaluation Information Evaluation Date 05/22/23 PT-OP-B Current Condition Start: 05/21/23 16:37 Freq: Status: Active Protocol: Document 06/12/23 09:02 SAK (Rec: 06/12/23 09:47 [facility] [id number]) Current Condition History of Current Condition Current Complaints neck pain and left shoulder pain History of Current Condition HIstory RCR and frozen shoulder, arthritis, some other surgery left shoulder 10 + years ago. Reports chronic pain left sided neck . Went on vacation last fall fell while riding a bike; had shoulder and neck pain, shoulder pain better but neck pain persists. Patient does gentle yoga and exercise class; reports hurt her neck during exercise class , can't do jumping jacks Prior Treatments and Tests massage chiropractor x-ray: mild dynamic instagility at c3-4 level with gr 1 spondylolisthesis on flexion fiex miltilevel c/s spondylosis PT-OP-C Subjective Start: 05/21/23 16:37 Freq: Status: Active Protocol: Document 06/12/23 09:02 [facility] (Rec: 06/12/23 09:47 [facility] [id number]) OP-PT Subjective Patient Comments Patient Comments Has new bed, still working on positioning. Neck has been better, shoulder catches sometimes. PT-OP-H Neuro Start: 05/21/23 16:37 Freq: Status: Active Protocol: Document 05/22/23 08:12 SAK (Rec: 05/22/23 09:02 [facility] [id number]) Sensation Evaluation Gross Sensation Gross Sensation WNL PT-OP-J Posture/Palpation/Skin Start: 05/21/23 16:37 Freq: Status: Active Protocol: Document 05/22/23 08:12 SAK (Rec: 05/22/23 09:02 [facility] [id number]) Posture Evaluation Position Sitting Head/C-Spine Posture Forward Head T-Spine Posture Increased Kyphosis Shoulder Posture (L) Rounded,(R) Rounded Scapula Posture (L) Protracted,(R) Protracted Arm Posture (L) Internally Rotated,(R) Internally Rotated Palpation Assessment Location c/s Palpation Findings Soft Tissue Tightness, Tenderness Palpation Details left lateral c/s upper trap Palpation Findings Soft Tissue Tightness PT-OP-K Range of Motion Start: 05/21/23 16:37 Freq: Status: Active Protocol: Document 05/22/23 08:12 [facility] (Rec: 05/22/23 09:02 [facility] [id number]) Cervical Spine Range of Motion Cervical Spine Active Testing Position Sitting Flexion 45 Extension 20 Rotation Left 72 Rotation Right 51 Lateral Flexion Left 43 Lateral Flexion Right 43 Shoulder Goniometric Range of Motion Shoulder Left Shoulder ROM WFL No Flexion 150 Extension 35 Abduction 160 Horizontal Abduction 80 External Rotation at 45 degrees 65 Abduction Internal Rotation Behind Back (text) T12 Right Shoulder ROM WFL Yes Elbow/Forearm Range of Motion Elbow/Forearm giorgi Elbow/Forearm ROM WFL Yes PT-OP-L Special Tests Start: 05/21/23 16:37 Freq: Status: Active Protocol: Document 05/22/23 08:12 [facility] (Rec: 05/22/23 09:02 [facility] [id number]) Special Tests Cervical Spine Special Tests Vertebral Artery Test Results - Alar Ligament Test Results - Foraminal Compression Test Results - Traction Test Results + dec pain Shoulder Special Tests Xiong Trey Impingement Test Results + L Drop Arm Rotator Cuff Test Results - PT-OP-Q Treatments Start: 05/21/23 16:37 Freq: Status: Active Protocol: Document 06/12/23 09:02 [facility] (Rec: 06/12/23 09:47 [facility] [id number]) Therapeutic Exercises Supine Exercises shoulder hor abd Reps/Minutes 10 shoulder flex Resistance L1 TB Equipment Used small pool noodle Reps/Minutes 10x pec stretch Equipment Used pool noodle Reps/Minutes 2x30 Comments with cues for neck lengthening Sidelying Exercises open book Reps/Minutes 5x Comments VC and tactile cues for movement entire upper quadrant segmentally, deep br Sitting Exercises pulleys Sitting Exercise Name flexion, scaption CS rotation with pillows under UE's Side bilateral Reps/Minutes 3x Comments full ROM Standing Exercises wall slide Reps/Minutes 5x Comments cues for shoulder shrug at 90 deg shoulder ER Equipment Used L2 TB Reps/Minutes 10x Comments postural cues shoulder ext Equipment Used L2 TB Reps/Minutes 10x Comments postural cues row Resistance L2 TB Reps/Minutes 10x Comments postural cues Manual Therapy Treatment Soft Tissue Mobilization UT, c/s Mobilization Type Myofascial Release,Sustained Pressure Comments also instructed in use of Theracane, consider for home use as well as tennis ball in sock for self massage Joint Mobilizations left first rib Direction inf Grade III Self-Care/Home Management Treatment Education Patient Education Home Exercise Program,Pain Management,Posture PT-OP-R Modalities Start: 05/21/23 16:37 Freq: Status: Active Protocol: Document 06/12/23 09:02 [facility] (Rec: 06/12/23 11:10 [facility] [id number]) Hot Pack/Cold Pack Treatment Hot Pack Location c/s Patient Position Hooklying Patient Tolerance Good PT-OP-T Assessment and Plan Start: 05/21/23 16:37 Freq: Status: Active Protocol: Document 06/12/23 09:02 [facility] (Rec: 06/12/23 09:47 [facility] [id number]) Physical Therapy Assessment Goals Three Impairment postural dysfunction Impairment forward head, rounded and internally rounded shoulders, forward left shoulder with weakness posterior chain musculature Short Term Goal (STG) Patient to be instructed in postural correction techniques and exercises for improved postural alignment and decreased pain STG Duration 06/20/23 Physician Industrial Goal (LTG) Patient to be independent and compliant with HEP and demonstrate improved postural alignment statically and dynamically with function LTG Duration 08/20/23 Two Impairment neck disability index score 28 % Short Term Goal (STG) Decrease neck disability index score to no greater than 20% as measure of improved neck function and activity tolerance STG Duration 06/20/23 Physician Industrial Goal (LTG) Decrease neck disability index score to no greater than 10% as measure of improved neck function and activity tolerance LTG Duration 08/20/23 One Impairment left sided neck pain as high as 8/10 Short Term Goal (STG) decrease pain to no greater than 5/10 with all usual activities STG Duration 06/20/23 Retirement Goal (LTG) decrease pain to no greater than 2/10 with all usual activiites LTG Duration 08/20/23 Progress Towards Goals Progress Towards Goals Progressing Toward Goals Assessment Summary Assessment Steady progress with dec pain in neck and left shoulder, improved activity tolerance with home and exercise and dance classes. Patient compliant to HEP which was updated with new HO issued today. Improving scapular activation Physical Therapy Plan Frequency and Duration Frequency of Treatment 2x/Week Duration of treatment (weeks) 12 Plan of Care Start Date 05/22/23 Plan of Care End Date 08/20/23 Therapeutic Interventions Therapeutic Interventions Home Exercise Program,Manual Therapy,Neuromuscular Re- education,Patient/Caregiver Education,Self-Care/Home Management,Soft Tissue Mobilization,Taping, Therapeutic Activities, Therapeutic Exercises Modalities Cold Pack/Ice Massage,Electric Stimulation,Hot Packs, Infrared Therapy,Traction- Mechanical,Ultrasound Next Visit Focus/Plan Next Note Type Treatment Note Next Visit Plan Continue gentle ther ex progression for c/s and shoulder ROM and strengthening , postural training and correction. Modalities and manual therapy as indicated to decrease muscle tension and pain
--- NOTE | 2023-06-25 15:46 | PT.OTN ---
Current Diagnoses Cervicalgia (06/25/23) Abnormal posture (06/25/23) Physical Therapy Treatment Note PT-OP-A Visit Information Start: 05/21/23 16:37 Freq: Status: Active Protocol: Document 06/25/23 11:36 [facility] (Rec: 06/25/23 15:46 [facility] [id number]) Out-Patient Physical Therapy Visit Information Visit Information Visit Type Treatment Note Visit Note Access Code [email or web address] Visit Start Time 14:34 Visit Stop Time 15:17 Visit Number 6 Number of COAL PASSER Visits 1 Evaluation Information Evaluation Date 05/22/23 PT-OP-B Current Condition Start: 05/21/23 16:37 Freq: Status: Active Protocol: Document 06/12/23 09:02 [facility] (Rec: 06/12/23 09:47 [facility] [id number]) Current Condition History of Current Condition Current Complaints neck pain and left shoulder pain History of Current Condition HIstory RCR and frozen shoulder, arthritis, some other surgery left shoulder 10 + years ago. Reports chronic pain left sided neck . Went on vacation last fall fell while riding a bike; had shoulder and neck pain, shoulder pain better but neck pain persists. Patient does gentle yoga and exercise class; reports hurt her neck during exercise class , can't do jumping jacks Prior Treatments and Tests massage chiropractor x-ray: mild dynamic instagility at c3-4 level with gr 1 spondylolisthesis on flexion fiex miltilevel c/s spondylosis PT-OP-C Subjective Start: 05/21/23 16:37 Freq: Status: Active Protocol: Document 06/25/23 11:36 [facility] (Rec: 06/25/23 15:46 [facility] [id number]) OP-PT Subjective Patient Comments Patient Comments Pt reports she had the results of her MRI today, but has not yet requested for the MRI to be sent here. Patient reports she is a little worse, attributes to being away and decrease to once a week for PT . AROM left shoulder flexion 140 start of session. PT-OP-H Neuro Start: 05/21/23 16:37 Freq: Status: Active Protocol: Document 05/22/23 08:12 [facility] (Rec: 05/22/23 09:02 [facility] [id number]) Sensation Evaluation Gross Sensation Gross Sensation WNL PT-OP-J Posture/Palpation/Skin Start: 05/21/23 16:37 Freq: Status: Active Protocol: Document 05/22/23 08:12 [facility] (Rec: 05/22/23 09:02 [facility] [id number]) Posture Evaluation Position Sitting Head/C-Spine Posture Forward Head T-Spine Posture Increased Kyphosis Shoulder Posture (L) Rounded,(R) Rounded Scapula Posture (L) Protracted,(R) Protracted Arm Posture (L) Internally Rotated,(R) Internally Rotated Palpation Assessment Location c/s Palpation Findings Soft Tissue Tightness, Tenderness Palpation Details left lateral c/s upper trap Palpation Findings Soft Tissue Tightness PT-OP-K Range of Motion Start: 05/21/23 16:37 Freq: Status: Active Protocol: Document 05/22/23 08:12 [facility] (Rec: 05/22/23 09:02 [facility] [id number]) Cervical Spine Range of Motion Cervical Spine Active Testing Position Sitting Flexion 45 Extension 20 Rotation Left 72 Rotation Right 51 Lateral Flexion Left 43 Lateral Flexion Right 43 Shoulder Goniometric Range of Motion Shoulder Left Shoulder ROM WFL No Flexion 150 Extension 35 Abduction 160 Horizontal Abduction 80 External Rotation at 45 degrees 65 Abduction Internal Rotation Behind Back (text) T12 Right Shoulder ROM WFL Yes Elbow/Forearm Range of Motion Elbow/Forearm giorgi Elbow/Forearm ROM WFL Yes PT-OP-L Special Tests Start: 05/21/23 16:37 Freq: Status: Active Protocol: Document 05/22/23 08:12 [facility] (Rec: 05/22/23 09:02 [facility] [id number]) Special Tests Cervical Spine Special Tests Vertebral Artery Test Results - Alar Ligament Test Results - Foraminal Compression Test Results - Traction Test Results + dec pain Shoulder Special Tests Xiong Trey Impingement Test Results + L Drop Arm Rotator Cuff Test Results - PT-OP-Q Treatments Start: 05/21/23 16:37 Freq: Status: Active Protocol: Document 06/25/23 11:36 [facility] (Rec: 06/25/23 15:46 [facility] [id number]) Therapeutic Exercises Supine Exercises shoulder flex Supine Exercise Name AROM Side bilateral Reps/Minutes X10 Comments verbal cues for 10 sec hold Sidelying Exercises open book Reps/Minutes 5x Comments VC to hld for 5 breaths, performed post manual therapy Standing Exercises row Resistance L2 TB Reps/Minutes X15x Comments postural cues Other Exercises quadruped CS rotation Side bilateral Reps/Minutes X10 Comments VC to perform very slowly in pain free range Manual Therapy Treatment Soft Tissue Mobilization left pec post cuff, periscapular Mobilization Type Cross-Friction,Rolling Intensity/Depth Moderate Body Position Sidelying Comments iza for pain Scalenes at lateral clavicle, UT, levator scap, CS paraspinals, intervertebral tissue Body Location bilateral Mobilization Type Cross-Friction,Rolling Body Position Seated Comments Monitored for pain, performed prior to exercise Joint Mobilizations scapular mobilization left shoulder Direction depression and adduction Grade III Body Position Sidelying Reps/Duration X10 left first rib Joint 1st and second rib this session Direction inf Grade III PT-OP-R Modalities Start: 05/21/23 16:37 Freq: Status: Active Protocol: Document 06/12/23 09:02 [facility] (Rec: 06/12/23 11:10 [facility] [id number]) Hot Pack/Cold Pack Treatment Hot Pack Location c/s Patient Position Hooklying Patient Tolerance Good PT-OP-T Assessment and Plan Start: 05/21/23 16:37 Freq: Status: Active Protocol: Document 06/25/23 11:36 [facility] (Rec: 06/25/23 15:46 [facility] [id number]) Physical Therapy Assessment Goals Three Impairment postural dysfunction Impairment forward head, rounded and internally rounded shoulders, forward left shoulder with weakness posterior chain musculature Short Term Goal (STG) Patient to be instructed in postural correction techniques and exercises for improved postural alignment and decreased pain STG Duration 06/20/23 Acupuncture Physician Goal (LTG) Patient to be independent and compliant with HEP and demonstrate improved postural alignment statically and dynamically with function LTG Duration 08/20/23 Two Impairment neck disability index score 28 % Short Term Goal (STG) Decrease neck disability index score to no greater than 20% as measure of improved neck function and activity tolerance STG Duration 06/20/23 Acupuncture Physician Goal (LTG) Decrease neck disability index score to no greater than 10% as measure of improved neck function and activity tolerance LTG Duration 08/20/23 One Impairment left sided neck pain as high as 8/10 Short Term Goal (STG) decrease pain to no greater than 5/10 with all usual activities STG Duration 06/20/23 Care Home Goal (LTG) decrease pain to no greater than 2/10 with all usual activiites LTG Duration 08/20/23 Assessment Summary Assessment Saritha reports neck continues to feel painful end of session, increased AROM left shoulder flexion end of session. Physical Therapy Plan Frequency and Duration Frequency of Treatment 2x/Week Duration of treatment (weeks) 12 Plan of Care Start Date 05/22/23 Plan of Care End Date 08/20/23 Next Visit Focus/Plan Next Note Type Treatment Note Next Visit Plan Continue gentle ther ex progression for c/s and shoulder ROM and strengthening , postural training and correction. Modalities and manual therapy as indicated to decrease muscle tension and pain
--- NOTE | 2023-06-30 16:09 | PT.OTN ---
Current Diagnoses Cervicalgia (06/30/23) Abnormal posture (06/30/23) Physical Therapy Treatment Note PT-OP-A Visit Information Start: 05/21/23 16:37 Freq: Status: Active Protocol: Document 06/30/23 12:11 AB (Rec: 06/30/23 16:09 AB [id number]) Out-Patient Physical Therapy Visit Information Visit Information Visit Type Treatment Note Visit Note Access Code [email or web address] Visit Start Time 13:00 Visit Stop Time 13:46 Visit Number 7 Number of SLIDE ATTENDANT Visits 2 Evaluation Information Evaluation Date 05/22/23 PT-OP-B Current Condition Start: 05/21/23 16:37 Freq: Status: Active Protocol: Document 06/12/23 09:02 SAK (Rec: 06/12/23 09:47 SAK [id number]) Current Condition History of Current Condition Current Complaints neck pain and left shoulder pain History of Current Condition HIstory RCR and frozen shoulder, arthritis, some other surgery left shoulder 10 + years ago. Reports chronic pain left sided neck . Went on vacation last fall fell while riding a bike; had shoulder and neck pain, shoulder pain better but neck pain persists. Patient does gentle yoga and exercise class; reports hurt her neck during exercise class , can't do jumping jacks Prior Treatments and Tests massage chiropractor x-ray: mild dynamic instagility at c3-4 level with gr 1 spondylolisthesis on flexion fiex miltilevel c/s spondylosis PT-OP-C Subjective Start: 05/21/23 16:37 Freq: Status: Active Protocol: Document 06/30/23 12:11 AB (Rec: 06/30/23 16:09 AB [id number]) OP-PT Subjective Patient Comments Patient Comments PT Ling Homer into this session due to progress note. Patient reports increased soreness post driving to [place] and driving in the [facility]. PT-OP-H Neuro Start: 05/21/23 16:37 Freq: Status: Active Protocol: Document 05/22/23 08:12 SAK (Rec: 05/22/23 09:02 SAK [id number]) Sensation Evaluation Gross Sensation Gross Sensation WNL PT-OP-J Posture/Palpation/Skin Start: 05/21/23 16:37 Freq: Status: Active Protocol: Document 05/22/23 08:12 SAK (Rec: 05/22/23 09:[address] [facility] [id number]) Posture Evaluation Position Sitting Head/C-Spine Posture Forward Head T-Spine Posture Increased Kyphosis Shoulder Posture (L) Rounded,(R) Rounded Scapula Posture (L) Protracted,(R) Protracted Arm Posture (L) Internally Rotated,(R) Internally Rotated Palpation Assessment Location c/s Palpation Findings Soft Tissue Tightness, Tenderness Palpation Details left lateral c/s upper trap Palpation Findings Soft Tissue Tightness PT-OP-K Range of Motion Start: 05/21/23 16:37 Freq: Status: Active Protocol: Document 06/30/23 12:11 AB (Rec: 06/30/23 16:09 AB [id number]) Cervical Spine Range of Motion Cervical Spine Active Testing Position Seated Flexion 37 Extension 19 Rotation Left 54 Rotation Right 54 Lateral Flexion Left 12 Lateral Flexion Right 19 Comments CS measured with goniometer Visual for seated trunk rotation left 70% right 40% Shoulder Goniometric Range of Motion Shoulder Left Testing Position Standing Flexion 145 Abduction 144 External Rotation at 90 degrees 60 Abduction Internal Rotation 67 Comments IR also at 90 deg abduction * ant translation of humerus with IR moves into scaption with abduction measurement Right Testing Position 143 Extension 150 External Rotation at 90 degrees 90 Abduction Internal Rotation 90 Comments * moves into scaption with abduction IR measured at 90 deg abduction also, 8 ant translation of humerus PT-OP-L Special Tests Start: 05/21/23 16:37 Freq: Status: Active Protocol: Document 05/22/23 08:12 SAK (Rec: 05/22/23 09:[address] [facility] [id number]) Special Tests Cervical Spine Special Tests Vertebral Artery Test Results - Alar Ligament Test Results - Foraminal Compression Test Results - Traction Test Results + dec pain Shoulder Special Tests Xiong Trey Impingement Test Results + L Drop Arm Rotator Cuff Test Results - PT-OP-Q Treatments Start: 05/21/23 16:37 Freq: Status: Active Protocol: Document 06/30/23 12:11 AB (Rec: 06/30/23 16:09 AB [id number]) Therapeutic Exercises Sidelying Exercises sidelying shoulder ER Side left Reps/Minutes X10 open book Reps/Minutes 5x Comments VC to hld for 5 breaths, performed post manual therapy Sitting Exercises deep nec flexor isometric reactive Resistance light blue Reps/Minutes X10 Comments VC for tech, pain-free intensity Other Exercises quadruped CS rotation Side bilateral Reps/Minutes X10 Comments VC to perform very slowly in pain free range Manual Therapy Treatment Soft Tissue Mobilization left pec post cuff, periscapular Body Location bilateral pec this session Mobilization Type Cross-Friction,Rolling Intensity/Depth Moderate Body Position Sidelying Comments iza for pain Scalenes at lateral clavicle, UT, levator scap, CS paraspinals, intervertebral tissue Body Location left scalenes at lateral clavicle, UT, levator scap this session Mobilization Type Cross-Friction,Rolling Body Position Sidelying Comments Monitored for pain, performed prior to exercise PT-OP-R Modalities Start: 05/21/23 16:37 Freq: Status: Active Protocol: Document 06/12/23 09:02 SAK (Rec: 06/12/23 11:10 SAK [id number]) Hot Pack/Cold Pack Treatment Hot Pack Location c/s Patient Position Hooklying Patient Tolerance Good PT-OP-T Assessment and Plan Start: 05/21/23 16:37 Freq: Status: Active Protocol: Document 06/30/23 12:11 AB (Rec: 06/30/23 16:09 AB [id number]) Physical Therapy Assessment Goals Three Impairment postural dysfunction Impairment forward head, rounded and internally rounded shoulders, forward left shoulder with weakness posterior chain musculature Short Term Goal (STG) Patient to be instructed in postural correction techniques and exercises for improved postural alignment and decreased pain STG Duration 06/20/23 Secretary Administrative Assistant Goal (LTG) Patient to be independent and compliant with HEP and demonstrate improved postural alignment statically and dynamically with function LTG Duration 08/20/23 Two Impairment neck disability index score 28 % Short Term Goal (STG) Decrease neck disability index score to no greater than 20% as measure of improved neck function and activity tolerance 06/30/23 Neck disability index score 17.7 this session STG Duration 06/20/23 Usp Goal (LTG) Decrease neck disability index score to no greater than 10% as measure of improved neck function and activity tolerance LTG Duration 08/20/23 One Impairment left sided neck pain as high as 8/10 Short Term Goal (STG) decrease pain to no greater than 5/10 with all usual activities STG Duration 06/20/23 Usp Goal (LTG) decrease pain to no greater than 2/10 with all usual activiites LTG Duration 08/20/23 Assessment Summary Assessment Saritha reports pain is the same left side of neck, but is able to move the neck more end of session. Saritha into session with reports of increased pain due to increased driving over the weekend. Physical Therapy Plan Frequency and Duration Frequency of Treatment 2x/Week Duration of treatment (weeks) 12 Plan of Care Start Date 05/22/23 Plan of Care End Date 08/20/23 Next Visit Focus/Plan Next Note Type Treatment Note Next Visit Plan Continue gentle ther ex progression for c/s and shoulder ROM and strengthening , postural training and correction. Modalities and manual therapy as indicated to decrease muscle tension and pain
--- NOTE | 2023-06-30 17:06 | PT.OPPN ---
Current Diagnoses Cervicalgia (06/30/23) Abnormal posture (06/30/23) Physical Therapy Progress Note PT-OP-A Visit Information Start: 05/21/23 16:37 Freq: Status: Active Protocol: Document 06/30/23 17:02 SAK (Rec: 06/30/23 17:06 SAK [id number]) Out-Patient Physical Therapy Visit Information Visit Information Visit Type Progress Note Evaluation Information Evaluation Date 05/22/23 PT-OP-B Current Condition Start: 05/21/23 16:37 Freq: Status: Active Protocol: Document 06/12/23 09:02 SAK (Rec: 06/12/23 09:47 SAK [id number]) Current Condition History of Current Condition Current Complaints neck pain and left shoulder pain History of Current Condition HIstory RCR and frozen shoulder, arthritis, some other surgery left shoulder 10 + years ago. Reports chronic pain left sided neck . Went on vacation last fall fell while riding a bike; had shoulder and neck pain, shoulder pain better but neck pain persists. Patient does gentle yoga and exercise class; reports hurt her neck during exercise class , can't do jumping jacks Prior Treatments and Tests massage chiropractor x-ray: mild dynamic instagility at c3-4 level with gr 1 spondylolisthesis on flexion fiex miltilevel c/s spondylosis PT-OP-C Subjective Start: 05/21/23 16:37 Freq: Status: Active Protocol: Document 06/30/23 12:11 AB (Rec: 06/30/23 16:09 AB [id number]) OP-PT Subjective Patient Comments Patient Comments PT Ling Homer into this session due to progress note. Patient reports increased soreness post driving to [place] and driving in the [facility]. PT-OP-H Neuro Start: 05/21/23 16:37 Freq: Status: Active Protocol: Document 05/22/23 08:12 SAK (Rec: 05/22/23 09:02 SAK [id number]) Sensation Evaluation Gross Sensation Gross Sensation WNL PT-OP-J Posture/Palpation/Skin Start: 05/21/23 16:37 Freq: Status: Active Protocol: Document 05/22/23 08:12 SAK (Rec: 05/22/23 09:02 SAK [id number]) Posture Evaluation Position Sitting Head/C-Spine Posture Forward Head T-Spine Posture Increased Kyphosis Shoulder Posture (L) Rounded,(R) Rounded Scapula Posture (L) Protracted,(R) Protracted Arm Posture (L) Internally Rotated,(R) Internally Rotated Palpation Assessment Location c/s Palpation Findings Soft Tissue Tightness, Tenderness Palpation Details left lateral c/s upper trap Palpation Findings Soft Tissue Tightness PT-OP-K Range of Motion Start: 05/21/23 16:37 Freq: Status: Active Protocol: Document 06/30/23 12:11 AB (Rec: 06/30/23 16:09 AB [id number]) Cervical Spine Range of Motion Cervical Spine Active Testing Position Seated Flexion 37 Extension 19 Rotation Left 54 Rotation Right 54 Lateral Flexion Left 12 Lateral Flexion Right 19 Comments CS measured with goniometer Visual for seated trunk rotation left 70% right 40% Shoulder Goniometric Range of Motion Shoulder Measured in Degrees Left Testing Position Standing Flexion 145 Abduction 144 External Rotation at 90 degrees 60 Abduction Internal Rotation 67 Comments IR also at 90 deg abduction * ant translation of humerus with IR moves into scaption with abduction measurement Right Testing Position 143 Extension 150 External Rotation at 90 degrees 90 Abduction Internal Rotation 90 Comments * moves into scaption with abduction IR measured at 90 deg abduction also, 8 ant translation of humerus PT-OP-L Special Tests Start: 05/21/23 16:37 Freq: Status: Active Protocol: Document 05/22/23 08:12 SAK (Rec: 05/22/23 09:02 SAK [id number]) Special Tests Cervical Spine Special Tests Vertebral Artery Test Results - Alar Ligament Test Results - Foraminal Compression Test Results - Traction Test Results + dec pain Shoulder Special Tests Xiong Trey Impingement Test Results + L Drop Arm Rotator Cuff Test Results - PT-OP-T Assessment and Plan Start: 05/21/23 16:37 Freq: Status: Active Protocol: Document 06/30/23 12:11 AB (Rec: 06/30/23 16:09 AB [id number]) Physical Therapy Assessment Goals Three Impairment postural dysfunction Impairment forward head, rounded and internally rounded shoulders, forward left shoulder with weakness posterior chain musculature Short Term Goal (STG) Patient to be instructed in postural correction techniques and exercises for improved postural alignment and decreased pain STG Duration 06/20/23 Long-Term Goal (LTG) Patient to be independent and compliant with HEP and demonstrate improved postural alignment statically and dynamically with function LTG Duration 08/20/23 Two Impairment neck disability index score 28 % Short Term Goal (STG) Decrease neck disability index score to no greater than 20% as measure of improved neck function and activity tolerance 06/30/23 Neck disability index score 17.7 this session STG Duration 06/20/23 Mems Device Scientist Goal (LTG) Decrease neck disability index score to no greater than 10% as measure of improved neck function and activity tolerance LTG Duration 08/20/23 One Impairment left sided neck pain as high as 8/10 Short Term Goal (STG) decrease pain to no greater than 5/10 with all usual activities STG Duration 06/20/23 Mems Device Scientist Goal (LTG) decrease pain to no greater than 2/10 with all usual activiites LTG Duration 08/20/23 Assessment Summary Assessment Saritha reports pain is the same left side of neck, but is able to move the neck more end of session. Saritha into session with reports of increased pain due to increased driving over the weekend. Physical Therapy Plan Frequency and Duration Frequency of Treatment 2x/Week Duration of treatment (weeks) 12 Plan of Care Start Date 05/22/23 Plan of Care End Date 08/20/23 Next Visit Focus/Plan Next Note Type Treatment Note Next Visit Plan Continue gentle ther ex progression for c/s and shoulder ROM and strengthening , postural training and correction. Modalities and manual therapy as indicated to decrease muscle tension and pain
--- NOTE | 2023-07-02 16:07 | PT.OTN ---
Current Diagnoses Cervicalgia (07/02/23) Abnormal posture (07/02/23) Physical Therapy Treatment Note PT-OP-A Visit Information Start: 05/21/23 16:37 Freq: Status: Active Protocol: Document 07/02/23 15:09 AB (Rec: 07/02/23 16:07 AB [id number]) Out-Patient Physical Therapy Visit Information Visit Information Visit Type Treatment Note Visit Note Access Code [email or web address] Visit Start Time 15:19 Visit Stop Time 15:59 Visit Number 8 Number of CHIEF EXECUTIVE OFFICER Visits 3 Evaluation Information Evaluation Date 05/22/23 PT-OP-B Current Condition Start: 05/21/23 16:37 Freq: Status: Active Protocol: Document 06/12/23 09:02 SAK (Rec: 06/12/23 09:47 SAK [id number]) Current Condition History of Current Condition Current Complaints neck pain and left shoulder pain History of Current Condition HIstory RCR and frozen shoulder, arthritis, some other surgery left shoulder 10 + years ago. Reports chronic pain left sided neck . Went on vacation last fall fell while riding a bike; had shoulder and neck pain, shoulder pain better but neck pain persists. Patient does gentle yoga and exercise class; reports hurt her neck during exercise class , can't do jumping jacks Prior Treatments and Tests massage chiropractor x-ray: mild dynamic instagility at c3-4 level with gr 1 spondylolisthesis on flexion fiex miltilevel c/s spondylosis PT-OP-C Subjective Start: 05/21/23 16:37 Freq: Status: Active Protocol: Document 07/02/23 15:09 AB (Rec: 07/02/23 16:07 AB [id number]) OP-PT Subjective Patient Comments Patient Comments Patient reports shoulder was hurting more post previous session and used ice and now is feeling better. PT-OP-H Neuro Start: 05/21/23 16:37 Freq: Status: Active Protocol: Document 05/22/23 08:12 SAK (Rec: 05/22/23 09:02 SAK [id number]) Sensation Evaluation Gross Sensation Gross Sensation WNL PT-OP-J Posture/Palpation/Skin Start: 05/21/23 16:37 Freq: Status: Active Protocol: Document 05/22/23 08:12 SAK (Rec: 05/22/23 09:02 SAK [id number]) Posture Evaluation Position Sitting Head/C-Spine Posture Forward Head T-Spine Posture Increased Kyphosis Shoulder Posture (L) Rounded,(R) Rounded Scapula Posture (L) Protracted,(R) Protracted Arm Posture (L) Internally Rotated,(R) Internally Rotated Palpation Assessment Location c/s Palpation Findings Soft Tissue Tightness, Tenderness Palpation Details left lateral c/s upper trap Palpation Findings Soft Tissue Tightness PT-OP-K Range of Motion Start: 05/21/23 16:37 Freq: Status: Active Protocol: Document 06/30/23 12:11 AB (Rec: 06/30/23 16:09 AB [id number]) Cervical Spine Range of Motion Cervical Spine Active Testing Position Seated Flexion 37 Extension 19 Rotation Left 54 Rotation Right 54 Lateral Flexion Left 12 Lateral Flexion Right 19 Comments CS measured with goniometer Visual for seated trunk rotation left 70% right 40% Shoulder Goniometric Range of Motion Shoulder Left Testing Position Standing Flexion 145 Abduction 144 External Rotation at 90 degrees 60 Abduction Internal Rotation 67 Comments IR also at 90 deg abduction * ant translation of humerus with IR moves into scaption with abduction measurement Right Testing Position 143 Extension 150 External Rotation at 90 degrees 90 Abduction Internal Rotation 90 Comments * moves into scaption with abduction IR measured at 90 deg abduction also, 8 ant translation of humerus PT-OP-L Special Tests Start: 05/21/23 16:37 Freq: Status: Active Protocol: Document 05/22/23 08:12 [facility] (Rec: 05/22/23 09:02 [facility] [id number]) Special Tests Cervical Spine Special Tests Vertebral Artery Test Results - Alar Ligament Test Results - Foraminal Compression Test Results - Traction Test Results + dec pain Shoulder Special Tests Xiong Trey Impingement Test Results + L Drop Arm Rotator Cuff Test Results - PT-OP-Q Treatments Start: 05/21/23 16:37 Freq: Status: Active Protocol: Document 07/02/23 15:09 AB (Rec: 07/02/23 16:07 AB [id number]) Therapeutic Exercises Sidelying Exercises open book Reps/Minutes 5x Comments VC to hld for 5 breaths, performed post manual therapy Sitting Exercises deep nec flexor isometric reactive Resistance light blue Reps/Minutes X10 Comments VC for tech, pain-free intensity CS rotation with pillows under UE's Side bilateral Reps/Minutes x10 Comments full ROM Standing Exercises wall push up Standing Exercise Name push up plus Side bilateral Reps/Minutes 10x Comments Verbal and visual cues wall slide Standing Exercise Name stepping to wall, lift off and lower without wall Reps/Minutes X8 Comments cues for shoulder shrug at 90 deg row Resistance L2 TB Reps/Minutes X15x Comments postural cues Other Exercises quadruped CS rotation Side bilateral Reps/Minutes X10 Comments VC to perform very slowly in pain free range Manual Therapy Treatment Soft Tissue Mobilization Scalenes at lateral clavicle, UT, levator scap, CS paraspinals, intervertebral tissue Body Location bilat scalenes at lateral clavicle, UT, levator scap, UT , CS parspinals Mobilization Type Cross-Friction,Rolling Body Position Sidelying Comments Monitored for pain, performed prior to exercise PT-OP-R Modalities Start: 05/21/23 16:37 Freq: Status: Active Protocol: Document 06/12/23 09:02 SAK (Rec: 06/12/23 11:10 SAK [id number]) Hot Pack/Cold Pack Treatment Hot Pack Location c/s Patient Position Hooklying Patient Tolerance Good PT-OP-T Assessment and Plan Start: 05/21/23 16:37 Freq: Status: Active Protocol: Document 07/02/23 15:09 AB (Rec: 07/02/23 16:07 AB [id number]) Physical Therapy Assessment Goals Three Impairment postural dysfunction Impairment forward head, rounded and internally rounded shoulders, forward left shoulder with weakness posterior chain musculature Short Term Goal (STG) Patient to be instructed in postural correction techniques and exercises for improved postural alignment and decreased pain STG Duration 06/20/23 Long-Term Goal (LTG) Patient to be independent and compliant with HEP and demonstrate improved postural alignment statically and dynamically with function LTG Duration 08/20/23 Two Impairment neck disability index score 28 % Short Term Goal (STG) Decrease neck disability index score to no greater than 20% as measure of improved neck function and activity tolerance 06/30/23 Neck disability index score 17.7 this session STG Duration 06/20/23 Long-Term Goal (LTG) Decrease neck disability index score to no greater than 10% as measure of improved neck function and activity tolerance LTG Duration 08/20/23 One Impairment left sided neck pain as high as 8/10 Short Term Goal (STG) decrease pain to no greater than 5/10 with all usual activities STG Duration 06/20/23 Long-Term Goal (LTG) decrease pain to no greater than 2/10 with all usual activiites LTG Duration 08/20/23 Assessment Summary Assessment Saritha reports she shoulder feels looser, but feels a little sore lower trap/ serratus area Physical Therapy Plan Frequency and Duration Frequency of Treatment 2x/Week Duration of treatment (weeks) 12 Plan of Care Start Date 05/22/23 Plan of Care End Date 08/20/23 Next Visit Focus/Plan Next Note Type Treatment Note Next Visit Plan Continue gentle ther ex progression for c/s and shoulder ROM and strengthening , postural training and correction. Modalities and manual therapy as indicated to decrease muscle tension and pain, focus on serratus punch and lower trap
--- NOTE | 2023-07-07 11:28 | PT.OTN ---
Current Diagnoses Cervicalgia (07/07/23) Abnormal posture (07/07/23) Physical Therapy Treatment Note PT-OP-A Visit Information Start: 05/21/23 16:37 Freq: Status: Active Protocol: Document 07/07/23 09:44 SAK (Rec: 07/07/23 11:28 [facility] [id number]) Out-Patient Physical Therapy Visit Information Visit Information Visit Type Treatment Note Visit Start Time 09:44 Visit Stop Time 10:42 Visit Number 9 Number of AGRICULTURAL CONSULTANT Visits 0 Evaluation Information Evaluation Date 05/22/23 PT-OP-B Current Condition Start: 05/21/23 16:37 Freq: Status: Active Protocol: Document 06/12/23 09:02 SAK (Rec: 06/12/23 09:47 SAK [id number]) Current Condition History of Current Condition Current Complaints neck pain and left shoulder pain History of Current Condition HIstory RCR and frozen shoulder, arthritis, some other surgery left shoulder 10 + years ago. Reports chronic pain left sided neck . Went on vacation last fall fell while riding a bike; had shoulder and neck pain, shoulder pain better but neck pain persists. Patient does gentle yoga and exercise class; reports hurt her neck during exercise class , can't do jumping jacks Prior Treatments and Tests massage chiropractor x-ray: mild dynamic instagility at c3-4 level with gr 1 spondylolisthesis on flexion fiex miltilevel c/s spondylosis PT-OP-C Subjective Start: 05/21/23 16:37 Freq: Status: Active Protocol: Document 07/07/23 09:44 SAK (Rec: 07/07/23 11:28 [facility] [id number]) OP-PT Subjective Patient Comments Patient Comments A little stiff this am. Pain left neck and into shoulderr. Painful to sleep on left shoulder PT-OP-H Neuro Start: 05/21/23 16:37 Freq: Status: Active Protocol: Document 05/22/23 08:12 SAK (Rec: 05/22/23 09:02 SAK [id number]) Sensation Evaluation Gross Sensation Gross Sensation WNL PT-OP-J Posture/Palpation/Skin Start: 05/21/23 16:37 Freq: Status: Active Protocol: Document 05/22/23 08:12 SAK (Rec: 05/22/23 09:02 [facility] [id number]) Posture Evaluation Position Sitting Head/C-Spine Posture Forward Head T-Spine Posture Increased Kyphosis Shoulder Posture (L) Rounded,(R) Rounded Scapula Posture (L) Protracted,(R) Protracted Arm Posture (L) Internally Rotated,(R) Internally Rotated Palpation Assessment Location c/s Palpation Findings Soft Tissue Tightness, Tenderness Palpation Details left lateral c/s upper trap Palpation Findings Soft Tissue Tightness PT-OP-K Range of Motion Start: 05/21/23 16:37 Freq: Status: Active Protocol: Document 06/30/23 12:11 AB (Rec: 06/30/23 16:09 AB [id number]) Cervical Spine Range of Motion Cervical Spine Active Testing Position Seated Flexion 37 Extension 19 Rotation Left 54 Rotation Right 54 Lateral Flexion Left 12 Lateral Flexion Right 19 Comments CS measured with goniometer Visual for seated trunk rotation left 70% right 40% Shoulder Goniometric Range of Motion Shoulder Left Testing Position Standing Flexion 145 Abduction 144 External Rotation at 90 degrees 60 Abduction Internal Rotation 67 Comments IR also at 90 deg abduction * ant translation of humerus with IR moves into scaption with abduction measurement Right Testing Position 143 Extension 150 External Rotation at 90 degrees 90 Abduction Internal Rotation 90 Comments * moves into scaption with abduction IR measured at 90 deg abduction also, 8 ant translation of humerus PT-OP-L Special Tests Start: 05/21/23 16:37 Freq: Status: Active Protocol: Document 05/22/23 08:12 [facility] (Rec: 05/22/23 09:02 [facility] [id number]) Special Tests Cervical Spine Special Tests Vertebral Artery Test Results - Alar Ligament Test Results - Foraminal Compression Test Results - Traction Test Results + dec pain Shoulder Special Tests Xiong Trey Impingement Test Results + L Drop Arm Rotator Cuff Test Results - PT-OP-Q Treatments Start: 05/21/23 16:37 Freq: Status: Active Protocol: Document 07/07/23 09:44 SAK (Rec: 07/07/23 11:28 [facility] [id number]) Therapeutic Exercises Supine Exercises D1 Equipment Used L1 TB Reps/Minutes 10x Comments cues for elongated c/s shoulder hor abd Equipment Used L1 TB Reps/Minutes 10 Sidelying Exercises open book Reps/Minutes 5x Comments VC to hld for 5 breaths, performed post manual therapy Sitting Exercises CS rotation with pillows under UE's Side bilateral Reps/Minutes x10 Comments full ROM Standing Exercises wall push up Standing Exercise Name push up plus Side bilateral Reps/Minutes 10x Comments Verbal and visual cues wall slide Standing Exercise Name shrug at 90 deg, slide down Reps/Minutes 10x Comments cues for shoulder shrug at 90 deg shoulder ER Equipment Used L2 TB Reps/Minutes 10x Comments postural cues shoulder ext Equipment Used L2 TB Reps/Minutes 10x Comments postural cues row Resistance L2 TB Reps/Minutes X15x Comments postural cues Manual Therapy Treatment Soft Tissue Mobilization left pec post cuff, periscapular Body Location bilateral pec this session Mobilization Type Cross-Friction,Rolling Intensity/Depth Moderate Body Position Sidelying Comments supine and sidelying UT, c/s Mobilization Type Myofascial Release,Sustained Pressure Comments also instructed in use of Theracane, consider for home use as well as tennis ball in sock for self massage Self-Care/Home Management Treatment Education Patient Education Home Exercise Program,Pain Management,Posture Other Education review use of Theracane bed positioning, pillow use ask to watch for habitual positioning and movements; patien noted to habitually be in right c/s sidebending today. PT-OP-R Modalities Start: 05/21/23 16:37 Freq: Status: Active Protocol: Document 06/12/23 09:02 [facility] (Rec: 06/12/23 11:10 [facility] [id number]) Hot Pack/Cold Pack Treatment Hot Pack Location c/s Patient Position Hooklying Patient Tolerance Good PT-OP-T Assessment and Plan Start: 05/21/23 16:37 Freq: Status: Active Protocol: Document 07/07/23 09:44 [facility] (Rec: 07/07/23 11:28 [facility] [id number]) Physical Therapy Assessment Goals Three Impairment postural dysfunction Impairment forward head, rounded and internally rounded shoulders, forward left shoulder with weakness posterior chain musculature Short Term Goal (STG) Patient to be instructed in postural correction techniques and exercises for improved postural alignment and decreased pain STG Duration 06/20/23 Manager Universal Goal (LTG) Patient to be independent and compliant with HEP and demonstrate improved postural alignment statically and dynamically with function LTG Duration 08/20/23 Two Impairment neck disability index score 28 % Short Term Goal (STG) Decrease neck disability index score to no greater than 20% as measure of improved neck function and activity tolerance 06/30/23 Neck disability index score 17.7 this session STG Duration 06/20/23 Fci Goal (LTG) Decrease neck disability index score to no greater than 10% as measure of improved neck function and activity tolerance LTG Duration 08/20/23 One Impairment left sided neck pain as high as 8/10 Short Term Goal (STG) decrease pain to no greater than 5/10 with all usual activities STG Duration 06/20/23 Fci Goal (LTG) decrease pain to no greater than 2/10 with all usual activiites LTG Duration 08/20/23 Assessment Summary Assessment MRI showed tendinosis RC tendons. Decreased pain and muscular tension after treatment, discussed need to further identify habitual positions and movements that may be contributory to pain. Mod cues with TB ex for scapular retraction. Physical Therapy Plan Frequency and Duration Frequency of Treatment 2x/Week Duration of treatment (weeks) 12 Plan of Care Start Date 05/22/23 Plan of Care End Date 08/20/23 Next Visit Focus/Plan Next Note Type Progress Note Next Visit Plan reassess all goals, discuss POC
--- NOTE | 2023-07-10 09:22 | PT.OTN ---
Current Diagnoses Cervicalgia (07/10/23) Abnormal posture (07/10/23) Physical Therapy Treatment Note PT-OP-A Visit Information Start: 05/21/23 16:37 Freq: Status: Active Protocol: Document 07/10/23 08:10 SAK (Rec: 07/10/23 09:19 [facility] [id number]) Out-Patient Physical Therapy Visit Information Visit Information Visit Type Treatment Note Visit Start Time 08:15 Visit Number 10 Number of MIXED [employer] WORKER Visits 0 Evaluation Information Evaluation Date 05/22/23 PT-OP-B Current Condition Start: 05/21/23 16:37 Freq: Status: Active Protocol: Document 06/12/23 09:02 SAK (Rec: 06/12/23 09:47 SAK [id number]) Current Condition History of Current Condition Current Complaints neck pain and left shoulder pain History of Current Condition HIstory RCR and frozen shoulder, arthritis, some other surgery left shoulder 10 + years ago. Reports chronic pain left sided neck . Went on vacation last fall fell while riding a bike; had shoulder and neck pain, shoulder pain better but neck pain persists. Patient does gentle yoga and exercise class; reports hurt her neck during exercise class , can't do jumping jacks Prior Treatments and Tests massage chiropractor x-ray: mild dynamic instagility at c3-4 level with gr 1 spondylolisthesis on flexion fiex miltilevel c/s spondylosis PT-OP-C Subjective Start: 05/21/23 16:37 Freq: Status: Active Protocol: Document 07/10/23 08:10 SAK (Rec: 07/10/23 09:19 [facility] [id number]) OP-PT Subjective Patient Comments Patient Comments [place] really good after last PT session, more pain today, thinks maybe slept wrong but also stressed. PT-OP-H Neuro Start: 05/21/23 16:37 Freq: Status: Active Protocol: Document 05/22/23 08:12 SAK (Rec: 05/22/23 09:02 [facility] [id number]) Sensation Evaluation Gross Sensation Gross Sensation WNL PT-OP-J Posture/Palpation/Skin Start: 05/21/23 16:37 Freq: Status: Active Protocol: Document 05/22/23 08:12 SAK (Rec: 05/22/23 09:02 [facility] [id number]) Posture Evaluation Position Sitting Head/C-Spine Posture Forward Head T-Spine Posture Increased Kyphosis Shoulder Posture (L) Rounded,(R) Rounded Scapula Posture (L) Protracted,(R) Protracted Arm Posture (L) Internally Rotated,(R) Internally Rotated Palpation Assessment Location c/s Palpation Findings Soft Tissue Tightness, Tenderness Palpation Details left lateral c/s upper trap Palpation Findings Soft Tissue Tightness PT-OP-K Range of Motion Start: 05/21/23 16:37 Freq: Status: Active Protocol: Document 06/30/23 12:11 AB (Rec: 06/30/23 16:09 AB [id number]) Cervical Spine Range of Motion Cervical Spine Active Testing Position Seated Flexion 37 Extension 19 Rotation Left 54 Rotation Right 54 Lateral Flexion Left 12 Lateral Flexion Right 19 Comments CS measured with goniometer Visual for seated trunk rotation left 70% right 40% Shoulder Goniometric Range of Motion Shoulder Left Testing Position Standing Flexion 145 Abduction 144 External Rotation at 90 degrees 60 Abduction Internal Rotation 67 Comments IR also at 90 deg abduction * ant translation of humerus with IR moves into scaption with abduction measurement Right Testing Position 143 Extension 150 External Rotation at 90 degrees 90 Abduction Internal Rotation 90 Comments * moves into scaption with abduction IR measured at 90 deg abduction also, 8 ant translation of humerus PT-OP-L Special Tests Start: 05/21/23 16:37 Freq: Status: Active Protocol: Document 05/22/23 08:12 [facility] (Rec: 05/22/23 09:02 [facility] [id number]) Special Tests Cervical Spine Special Tests Vertebral Artery Test Results - Alar Ligament Test Results - Foraminal Compression Test Results - Traction Test Results + dec pain Shoulder Special Tests Xiong Trey Impingement Test Results + L Drop Arm Rotator Cuff Test Results - PT-OP-Q Treatments Start: 05/21/23 16:37 Freq: Status: Active Protocol: Document 07/10/23 08:10 [facility] (Rec: 07/10/23 09:19 [facility] [id number]) Therapeutic Exercises Supine Exercises shld ER Equipment Used L1 TB Reps/Minutes 10x D1 Supine Exercise Name D2 Equipment Used L1 TB Reps/Minutes 10x Comments cues for elongated c/s shoulder hor abd Equipment Used L1 TB Reps/Minutes 10 CS rotation AROM Side bilateral Reps/Minutes X10 Comments Verbal cues to perform slowly pec stretch Equipment Used pool noodle Reps/Minutes 2x30 Comments with cues for neck lengthening neck lengthening Supine Exercise Name with postural isometric Reps/Minutes 5x5 Standing Exercises overhead press Resistance 1# Reps/Minutes 10x upright rows Resistance 3# Reps/Minutes 10x bicep curls Resistance 3# Reps/Minutes 10x Therapeutic Activity Therapeutic Activity bed positioning Name supine and sidelying Comments correct use of pillows, towel under side in sidelying, use of mirror or phone to view correct alignment Manual Therapy Treatment Soft Tissue Mobilization left pec post cuff, periscapular Body Location bilateral pec this session Mobilization Type Cross-Friction,Rolling, Sustained Pressure Intensity/Depth Moderate Body Position Sidelying Comments supine and sidelying UT, c/s Mobilization Type Myofascial Release,Sustained Pressure Scalenes at lateral clavicle, UT, levator scap, CS paraspinals, intervertebral tissue Body Location bilat scalenes at lateral clavicle, UT, levator scap, UT , CS parspinals Mobilization Type Cross-Friction,Rolling Body Position Sidelying Comments Monitored for pain, performed prior to exercise PT-OP-R Modalities Start: 05/21/23 16:37 Freq: Status: Active Protocol: Document 06/12/23 09:02 [facility] (Rec: 06/12/23 11:10 [facility] [id number]) Hot Pack/Cold Pack Treatment Hot Pack Location c/s Patient Position Hooklying Patient Tolerance Good PT-OP-T Assessment and Plan Start: 05/21/23 16:37 Freq: Status: Active Protocol: Document 07/10/23 08:10 [facility] (Rec: 07/10/23 09:19 [facility] [id number]) Physical Therapy Assessment Goals Three Impairment postural dysfunction Impairment forward head, rounded and internally rounded shoulders, forward left shoulder with weakness posterior chain musculature Short Term Goal (STG) Patient to be instructed in postural correction techniques and exercises for improved postural alignment and decreased pain 07/10/23 STG Duration goal met Media Manager Goal (LTG) Patient to be independent and compliant with HEP and demonstrate improved postural alignment statically and dynamically with function LTG Duration 08/20/23 Two Impairment neck disability index score 28 % Short Term Goal (STG) Decrease neck disability index score to no greater than 20% as measure of improved neck function and activity tolerance 06/30/23 Neck disability index score 17.7 this session 07/10/23: 38% this am STG Duration goal met Snf Goal (LTG) Decrease neck disability index score to no greater than 10% as measure of improved neck function and activity tolerance LTG Duration 08/20/23 One Impairment left sided neck pain as high as 8/10 Short Term Goal (STG) decrease pain to no greater than 5/10 with all usual activities 07/10/23: goal met STG Duration 06/20/23 Snf Goal (LTG) decrease pain to no greater than 2/10 with all usual activiites LTG Duration 08/20/23 Progress Towards Goals Progress Towards Goals Progressing Toward Goals Assessment Summary Assessment c/s rotation WNL supine, improved sitting. Worst pain in am. Corrections and further instruction in proper bed positioning for neck protection. Started supine with STM f/b supine ex with good alignment, transitioned to standing beginning weights at wall for emphasis neutral posture. Patient demonstrating improved understanding. Physical Therapy Plan Frequency and Duration Frequency of Treatment 2x/Week Duration of treatment (weeks) 12 Plan of Care Start Date 05/22/23 Plan of Care End Date 08/20/23 Therapeutic Interventions Therapeutic Interventions Home Exercise Program,Manual Therapy,Neuromuscular Re- education,Patient/Caregiver Education,Self-Care/Home Management,Soft Tissue Mobilization,Taping, Therapeutic Activities, Therapeutic Exercises Modalities Cold Pack/Ice Massage,Electric Stimulation,Hot Packs, Infrared Therapy,Traction- Mechanical,Ultrasound Next Visit Focus/Plan Next Note Type Treatment Note Next Visit Plan Continue PT for postural re- education, ROM, strengthening, functional exercises including for managing luggage during upcoming travel.
--- NOTE | 2023-07-14 16:17 | PT.OTN ---
Current Diagnoses Cervicalgia (07/14/23) Abnormal posture (07/14/23) Physical Therapy Treatment Note PT-OP-A Visit Information Start: 05/21/23 16:37 Freq: Status: Active Protocol: Document 07/14/23 14:25 SAK (Rec: 07/14/23 15:14 [facility] [id number]) Out-Patient Physical Therapy Visit Information Visit Information Visit Type Treatment Note Visit Start Time 14:27 Visit Stop Time 15:20 Visit Number 11 Number of ART THERAPY SPECIALIST Visits 0 Evaluation Information Evaluation Date 05/22/23 PT-OP-B Current Condition Start: 05/21/23 16:37 Freq: Status: Active Protocol: Document 06/12/23 09:02 SAK (Rec: 06/12/23 09:47 [facility] [id number]) Current Condition History of Current Condition Current Complaints neck pain and left shoulder pain History of Current Condition HIstory RCR and frozen shoulder, arthritis, some other surgery left shoulder 10 + years ago. Reports chronic pain left sided neck . Went on vacation last fall fell while riding a bike; had shoulder and neck pain, shoulder pain better but neck pain persists. Patient does gentle yoga and exercise class; reports hurt her neck during exercise class , can't do jumping jacks Prior Treatments and Tests massage chiropractor x-ray: mild dynamic instagility at c3-4 level with gr 1 spondylolisthesis on flexion fiex miltilevel c/s spondylosis PT-OP-C Subjective Start: 05/21/23 16:37 Freq: Status: Active Protocol: Document 07/14/23 14:25 SAK (Rec: 07/14/23 16:13 [facility] [id number]) OP-PT Subjective Patient Comments Patient Comments Was feeling pretty good today until started to do work on computer, now sore, stiff. Patient Reported Progress Improving PT-OP-H Neuro Start: 05/21/23 16:37 Freq: Status: Active Protocol: Document 05/22/23 08:12 SAK (Rec: 05/22/23 09:02 [facility] [id number]) Sensation Evaluation Gross Sensation Gross Sensation WNL PT-OP-J Posture/Palpation/Skin Start: 05/21/23 16:37 Freq: Status: Active Protocol: Document 05/22/23 08:12 SAK (Rec: 05/22/23 09:02 [facility] [id number]) Posture Evaluation Position Sitting Head/C-Spine Posture Forward Head T-Spine Posture Increased Kyphosis Shoulder Posture (L) Rounded,(R) Rounded Scapula Posture (L) Protracted,(R) Protracted Arm Posture (L) Internally Rotated,(R) Internally Rotated Palpation Assessment Location c/s Palpation Findings Soft Tissue Tightness, Tenderness Palpation Details left lateral c/s upper trap Palpation Findings Soft Tissue Tightness PT-OP-K Range of Motion Start: 05/21/23 16:37 Freq: Status: Active Protocol: Document 06/30/23 12:11 AB (Rec: 06/30/23 16:09 AB [id number]) Cervical Spine Range of Motion Cervical Spine Active Testing Position Seated Flexion 37 Extension 19 Rotation Left 54 Rotation Right 54 Lateral Flexion Left 12 Lateral Flexion Right 19 Comments CS measured with goniometer Visual for seated trunk rotation left 70% right 40% Shoulder Goniometric Range of Motion Shoulder Left Testing Position Standing Flexion 145 Abduction 144 External Rotation at 90 degrees 60 Abduction Internal Rotation 67 Comments IR also at 90 deg abduction * ant translation of humerus with IR moves into scaption with abduction measurement Right Testing Position 143 Extension 150 External Rotation at 90 degrees 90 Abduction Internal Rotation 90 Comments * moves into scaption with abduction IR measured at 90 deg abduction also, 8 ant translation of humerus PT-OP-L Special Tests Start: 05/21/23 16:37 Freq: Status: Active Protocol: Document 05/22/23 08:12 [facility] (Rec: 05/22/23 09:02 [facility] [id number]) Special Tests Cervical Spine Special Tests Vertebral Artery Test Results - Alar Ligament Test Results - Foraminal Compression Test Results - Traction Test Results + dec pain Shoulder Special Tests Xiong Trey Impingement Test Results + L Drop Arm Rotator Cuff Test Results - PT-OP-Q Treatments Start: 05/21/23 16:37 Freq: Status: Active Protocol: Document 07/14/23 14:25 SAK (Rec: 07/14/23 15:14 [facility] [id number]) Therapeutic Exercises Supine Exercises shld ER Equipment Used L1 TB Reps/Minutes 10x D1 Supine Exercise Name D2 Equipment Used L1 TB Reps/Minutes 10x Comments cues for elongated c/s shoulder hor abd Equipment Used L1 TB Reps/Minutes 10 CS rotation AROM Side bilateral Reps/Minutes X10 Comments Verbal cues to perform slowly pec stretch Equipment Used pool noodle Reps/Minutes 2x30 Comments with cues for neck lengthening neck lengthening Supine Exercise Name with postural isometric Reps/Minutes 5x5 Standing Exercises counter stretch Reps/Minutes 2x10 overhead press Resistance 1# Reps/Minutes 10x upright rows Resistance 3# Reps/Minutes 10x bicep curls Resistance 3# Reps/Minutes 10x wall push up Standing Exercise Name push up plus Side bilateral Reps/Minutes 10x Comments Verbal and visual cues Manual Therapy Treatment Soft Tissue Mobilization left pec post cuff, periscapular Body Location bilateral pec this session Mobilization Type Cross-Friction,Rolling, Sustained Pressure Intensity/Depth Moderate Body Position Sitting Comments sitting and supine UT, c/s Mobilization Type Myofascial Release,Sustained Pressure Intensity/Depth Moderate Body Position Sitting Comments sitting and supine PT-OP-R Modalities Start: 05/21/23 16:37 Freq: Status: Active Protocol: Document 06/12/23 09:02 SAK (Rec: 06/12/23 11:10 SAK [id number]) Hot Pack/Cold Pack Treatment Hot Pack Location c/s Patient Position Hooklying Patient Tolerance Good PT-OP-T Assessment and Plan Start: 05/21/23 16:37 Freq: Status: Active Protocol: Document 07/14/23 14:25 SAK (Rec: 07/14/23 15:14 [facility] [id number]) Physical Therapy Assessment Goals Three Impairment postural dysfunction Impairment forward head, rounded and internally rounded shoulders, forward left shoulder with weakness posterior chain musculature Short Term Goal (STG) Patient to be instructed in postural correction techniques and exercises for improved postural alignment and decreased pain 07/10/23 STG Duration goal met Documentation Manager Goal (LTG) Patient to be independent and compliant with HEP and demonstrate improved postural alignment statically and dynamically with function LTG Duration 08/20/23 Two Impairment neck disability index score 28 % Short Term Goal (STG) Decrease neck disability index score to no greater than 20% as measure of improved neck function and activity tolerance 06/30/23 Neck disability index score 17.7 this session 07/10/23: 38% this am STG Duration goal met Documentation Manager Goal (LTG) Decrease neck disability index score to no greater than 10% as measure of improved neck function and activity tolerance LTG Duration 08/20/23 One Impairment left sided neck pain as high as 8/10 Short Term Goal (STG) decrease pain to no greater than 5/10 with all usual activities 07/10/23: goal met STG Duration 06/20/23 Documentation Manager Goal (LTG) decrease pain to no greater than 2/10 with all usual activiites LTG Duration 08/20/23 Progress Towards Goals Progress Towards Goals Progressing Toward Goals Assessment Summary Assessment Good progress, tolerated progression of ther ex last session well, reviewed new ex with minimal cues. Discussed posture and body mechanics to prevent soreness/pain with use of computer, patient demonstrated good understanding. Physical Therapy Plan Frequency and Duration Frequency of Treatment 2x/Week Duration of treatment (weeks) 12 Plan of Care Start Date 05/22/23 Plan of Care End Date 08/20/23 Therapeutic Interventions Therapeutic Interventions Home Exercise Program,Manual Therapy,Neuromuscular Re- education,Patient/Caregiver Education,Self-Care/Home Management,Soft Tissue Mobilization,Taping, Therapeutic Activities, Therapeutic Exercises Modalities Cold Pack/Ice Massage,Electric Stimulation,Hot Packs, Infrared Therapy,Traction- Mechanical,Ultrasound Next Visit Focus/Plan Next Note Type Treatment Note Next Visit Plan Continue PT for postural re- education, ROM, strengthening, functional exercises including for managing luggage during upcoming travel.
--- NOTE | 2023-07-28 12:51 | PT.OTN ---
Current Diagnoses Cervicalgia (07/28/23) Abnormal posture (07/28/23) Physical Therapy Treatment Note PT-OP-A Visit Information Start: 05/21/23 16:37 Freq: Status: Active Protocol: Document 07/28/23 08:07 AB (Rec: 07/28/23 09:47 AB [id number]) Out-Patient Physical Therapy Visit Information Visit Information Visit Type Treatment Note Visit Note Access Code [email or web address] Visit Start Time 09:02 Visit Stop Time 09:42 Visit Number 12 Number of TABLET COATER Visits 1 Evaluation Information Evaluation Date 05/22/23 PT-OP-B Current Condition Start: 05/21/23 16:37 Freq: Status: Active Protocol: Document 06/12/23 09:02 SAK (Rec: 06/12/23 09:47 SAK [id number]) Current Condition History of Current Condition Current Complaints neck pain and left shoulder pain History of Current Condition HIstory RCR and frozen shoulder, arthritis, some other surgery left shoulder 10 + years ago. Reports chronic pain left sided neck . Went on vacation last fall fell while riding a bike; had shoulder and neck pain, shoulder pain better but neck pain persists. Patient does gentle yoga and exercise class; reports hurt her neck during exercise class , can't do jumping jacks Prior Treatments and Tests massage chiropractor x-ray: mild dynamic instagility at c3-4 level with gr 1 spondylolisthesis on flexion fiex miltilevel c/s spondylosis PT-OP-C Subjective Start: 05/21/23 16:37 Freq: Status: Active Protocol: Document 07/28/23 08:07 AB (Rec: 07/28/23 09:47 AB [id number]) OP-PT Subjective Patient Comments Patient Comments Patient reports the shoulder is 2 steps fwd one step back, comments she may have slept on it wrong, went to concert, has been traveling. AROM left shoulder flexion 140 deg start of session. PT-OP-H Neuro Start: 05/21/23 16:37 Freq: Status: Active Protocol: Document 05/22/23 08:12 SAK (Rec: 05/22/23 09:02 SAK [id number]) Sensation Evaluation Gross Sensation Gross Sensation WNL PT-OP-J Posture/Palpation/Skin Start: 05/21/23 16:37 Freq: Status: Active Protocol: Document 05/22/23 08:12 [facility] (Rec: 05/22/23 09:02 [facility] [id number]) Posture Evaluation Position Sitting Head/C-Spine Posture Forward Head T-Spine Posture Increased Kyphosis Shoulder Posture (L) Rounded,(R) Rounded Scapula Posture (L) Protracted,(R) Protracted Arm Posture (L) Internally Rotated,(R) Internally Rotated Palpation Assessment Location c/s Palpation Findings Soft Tissue Tightness, Tenderness Palpation Details left lateral c/s upper trap Palpation Findings Soft Tissue Tightness PT-OP-K Range of Motion Start: 05/21/23 16:37 Freq: Status: Active Protocol: Document 06/30/23 12:11 AB (Rec: 06/30/23 16:09 AB [id number]) Cervical Spine Range of Motion Cervical Spine Active Testing Position Seated Flexion 37 Extension 19 Rotation Left 54 Rotation Right 54 Lateral Flexion Left 12 Lateral Flexion Right 19 Comments CS measured with goniometer Visual for seated trunk rotation left 70% right 40% Shoulder Goniometric Range of Motion Shoulder Left Testing Position Standing Flexion 145 Abduction 144 External Rotation at 90 degrees 60 Abduction Internal Rotation 67 Comments IR also at 90 deg abduction * ant translation of humerus with IR moves into scaption with abduction measurement Right Testing Position 143 Extension 150 External Rotation at 90 degrees 90 Abduction Internal Rotation 90 Comments * moves into scaption with abduction IR measured at 90 deg abduction also, 8 ant translation of humerus PT-OP-L Special Tests Start: 05/21/23 16:37 Freq: Status: Active Protocol: Document 05/22/23 08:12 [facility] (Rec: 05/22/23 09:02 [facility] [id number]) Special Tests Cervical Spine Special Tests Vertebral Artery Test Results - Alar Ligament Test Results - Foraminal Compression Test Results - Traction Test Results + dec pain Shoulder Special Tests Xiong Trey Impingement Test Results + L Drop Arm Rotator Cuff Test Results - PT-OP-Q Treatments Start: 05/21/23 16:37 Freq: Status: Active Protocol: Document 07/28/23 08:07 AB (Rec: 07/28/23 09:47 AB [id number]) Therapeutic Exercises Supine Exercises shoulder flex Supine Exercise Name AROM Side bilateral Reps/Minutes X4 Comments verbal cues for 10 sec hold, not pedro Sidelying Exercises sidelying shoulder ER Side left Reps/Minutes X10 open book Reps/Minutes 5x Comments VC to hld for 5 breaths, performed post manual therapy Standing Exercises L stretch Side bilateral Reps/Minutes X10 Comments verbal cues row Resistance level 3 tb Reps/Minutes 10 X 2 Comments postural cues Other Exercises quadruped CS rotation Side bilateral Reps/Minutes X10 Comments VC to perform very slowly in pain free range Manual Therapy Treatment Soft Tissue Mobilization left pec post cuff, periscapular Body Location bilateral pec this session Mobilization Type Cross-Friction,Rolling, Sustained Pressure Intensity/Depth Moderate Body Position Sitting Comments sitting and supine Joint Mobilizations left GH Joint left GH Direction AP and inf Grade II Body Position Hooklying scapular mobilization left shoulder Direction depression and adduction Grade III Body Position Sidelying Reps/Duration X10 Self-Care/Home Management Treatment Education Other Education Discussed avoiding using overhead bins for luggage with travel, wearing a pack with straps adjusted well prior to travel and to use bilateral UE when lifting luggage when pulling luggages is not an option, and avoiding rushing when positioning luggage on transportation. PT-OP-R Modalities Start: 05/21/23 16:37 Freq: Status: Active Protocol: Document 06/12/23 09:02 SAK (Rec: 06/12/23 11:10 SAK [id number]) Hot Pack/Cold Pack Treatment Hot Pack Location c/s Patient Position Hooklying Patient Tolerance Good PT-OP-T Assessment and Plan Start: 05/21/23 16:37 Freq: Status: Active Protocol: Document 07/28/23 08:07 AB (Rec: 07/28/23 09:47 AB [id number]) Physical Therapy Assessment Goals Three Impairment postural dysfunction Impairment forward head, rounded and internally rounded shoulders, forward left shoulder with weakness posterior chain musculature Short Term Goal (STG) Patient to be instructed in postural correction techniques and exercises for improved postural alignment and decreased pain 07/10/23 STG Duration goal met Care Home Goal (LTG) Patient to be independent and compliant with HEP and demonstrate improved postural alignment statically and dynamically with function LTG Duration 08/20/23 Two Impairment neck disability index score 28 % Short Term Goal (STG) Decrease neck disability index score to no greater than 20% as measure of improved neck function and activity tolerance 06/30/23 Neck disability index score 17.7 this session 07/10/23: 38% this am STG Duration goal met Cco & President Goal (LTG) Decrease neck disability index score to no greater than 10% as measure of improved neck function and activity tolerance LTG Duration 08/20/23 One Impairment left sided neck pain as high as 8/10 Short Term Goal (STG) decrease pain to no greater than 5/10 with all usual activities 07/10/23: goal met STG Duration 06/20/23 Care Home Goal (LTG) decrease pain to no greater than 2/10 with all usual activiites LTG Duration 08/20/23 Assessment Summary Assessment 146 deg left shoulder flexion post manual therapy and exercise, and patient reports the neck feels looser end of session. Increased AROM left shoulder flexion should allow Saritha to reach items placed in home with decreased UT activation, but is not yet WNL . Physical Therapy Plan Frequency and Duration Frequency of Treatment 2x/Week Duration of treatment (weeks) 12 Plan of Care Start Date 05/22/23 Plan of Care End Date 08/20/23 Next Visit Focus/Plan Next Note Type Treatment Note Next Visit Plan Continue PT for postural re- education, ROM, strengthening, functional exercises including for managing luggage during upcoming travel.
--- NOTE | 2023-08-05 10:06 | PT-OP ANOTE ---
cancelled due to ill
--- NOTE | 2023-08-07 15:15 | PT.OTN ---
Current Diagnoses Cervicalgia (08/07/23) Abnormal posture (08/07/23) Physical Therapy Treatment Note PT-OP-A Visit Information Start: 05/21/23 16:37 Freq: Status: Active Protocol: Document 08/07/23 09:45 SAK (Rec: 08/07/23 10:30 [facility] [id number]) Out-Patient Physical Therapy Visit Information Visit Information Visit Type Treatment Note Visit Start Time 09:45 Visit Stop Time 10:40 Visit Number 14 Evaluation Information Evaluation Date 05/22/23 PT-OP-B Current Condition Start: 05/21/23 16:37 Freq: Status: Active Protocol: Document 08/07/23 09:45 SAK (Rec: 08/07/23 10:30 [facility] [id number]) Current Condition History of Current Condition Current Complaints neck pain and left shoulder pain History of Current Condition HIstory RCR and frozen shoulder, arthritis, some other surgery left shoulder 10 + years ago. Reports chronic pain left sided neck . Went on vacation last fall fell while riding a bike; had shoulder and neck pain, shoulder pain better but neck pain persists. Patient does gentle yoga and exercise class; reports hurt her neck during exercise class , can't do jumping jacks Prior Treatments and Tests massage chiropractor x-ray: mild dynamic instagility at c3-4 level with gr 1 spondylolisthesis on flexion fiex miltilevel c/s spondylosis PT-OP-C Subjective Start: 05/21/23 16:37 Freq: Status: Active Protocol: Document 08/07/23 09:45 [facility] (Rec: 08/07/23 10:30 [facility] [id number]) OP-PT Subjective Patient Comments Patient Comments Had a cold, still recoverying. Sore for a day after PT. Still has been compliant to [facility], states feels pretty good today. PT-OP-H Neuro Start: 05/21/23 16:37 Freq: Status: Active Protocol: Document 05/22/23 08:12 SAK (Rec: 05/22/23 09:02 [facility] [id number]) Sensation Evaluation Gross Sensation Gross Sensation WNL PT-OP-J Posture/Palpation/Skin Start: 05/21/23 16:37 Freq: Status: Active Protocol: Document 05/22/23 08:12 SAK (Rec: 05/22/23 09:02 [facility] [id number]) Posture Evaluation Position Sitting Head/C-Spine Posture Forward Head T-Spine Posture Increased Kyphosis Shoulder Posture (L) Rounded,(R) Rounded Scapula Posture (L) Protracted,(R) Protracted Arm Posture (L) Internally Rotated,(R) Internally Rotated Palpation Assessment Location c/s Palpation Findings Soft Tissue Tightness, Tenderness Palpation Details left lateral c/s upper trap Palpation Findings Soft Tissue Tightness PT-OP-K Range of Motion Start: 05/21/23 16:37 Freq: Status: Active Protocol: Document 06/30/23 12:11 AB (Rec: 06/30/23 16:09 AB [id number]) Cervical Spine Range of Motion Cervical Spine Active Testing Position Seated Flexion 37 Extension 19 Rotation Left 54 Rotation Right 54 Lateral Flexion Left 12 Lateral Flexion Right 19 Comments CS measured with goniometer Visual for seated trunk rotation left 70% right 40% Shoulder Goniometric Range of Motion Shoulder Left Testing Position Standing Flexion 145 Abduction 144 External Rotation at 90 degrees 60 Abduction Internal Rotation 67 Comments IR also at 90 deg abduction * ant translation of humerus with IR moves into scaption with abduction measurement Right Testing Position 143 Extension 150 External Rotation at 90 degrees 90 Abduction Internal Rotation 90 Comments * moves into scaption with abduction IR measured at 90 deg abduction also, 8 ant translation of humerus PT-OP-L Special Tests Start: 05/21/23 16:37 Freq: Status: Active Protocol: Document 05/22/23 08:12 SAK (Rec: 05/22/23 09:02 SAK [id number]) Special Tests Cervical Spine Special Tests Vertebral Artery Test Results - Alar Ligament Test Results - Foraminal Compression Test Results - Traction Test Results + dec pain Shoulder Special Tests Xiong Trey Impingement Test Results + L Drop Arm Rotator Cuff Test Results - PT-OP-Q Treatments Start: 05/21/23 16:37 Freq: Status: Active Protocol: Document 08/07/23 09:45 SAK (Rec: 08/07/23 10:30 SAK [id number]) Therapeutic Exercises Supine Exercises shld ER Supine Exercise Name elbow at side, 90/90 Equipment Used MR Reps/Minutes 10x2 Sidelying Exercises shoulder flex Sidelying Exercise Name with manual upward scapular rotation and inf GH glide Reps/Minutes 5x shoulder ab Sidelying Exercise Name with manual upward scapular rotation and inf GH glide Reps/Minutes 5x sidelying shoulder ER Side left Reps/Minutes X10 Sitting Exercises trunk rotation Reps/Minutes 1x10 ea side pulleys Sitting Exercise Name flexion, scaption Comments cues for pain-free ROM Standing Exercises trunk rotation Reps/Minutes 5x giorgi Comments gentle warm up lat pull Equipment Used 12# Reps/Minutes 10x tricep press Equipment Used 3# Reps/Minutes 10x squat press Equipment Used 2# Reps/Minutes 10 upright row Resistance 2# Reps/Minutes 10x overhead press Resistance 1# Reps/Minutes 10x upright rows Reps/Minutes 2# bicep curls Resistance 4# Reps/Minutes 10x shoulder shrugs Standing Exercise Name giorgi and unil Reps/Minutes 5x shoulder roll Reps/Minutes 5x shoulder ER Equipment Used L1 TB Reps/Minutes 10x Comments postural cues Manual Therapy Treatment Soft Tissue Mobilization left pec post cuff, periscapular Body Location bilateral pec this session Mobilization Type Cross-Friction,Rolling, Sustained Pressure Intensity/Depth Moderate Body Position Sitting Comments sidelying PT-OP-R Modalities Start: 05/21/23 16:37 Freq: Status: Active Protocol: Document 08/07/23 09:45 SAK (Rec: 08/07/23 10:30 [facility] [id number]) Hot Pack/Cold Pack Treatment Hot Pack Location left shoulder Patient Position Hooklying Patient Tolerance Good PT-OP-T Assessment and Plan Start: 05/21/23 16:37 Freq: Status: Active Protocol: Document 08/07/23 09:45 SAK (Rec: 08/07/23 10:30 [facility] [id number]) Physical Therapy Assessment Goals Three Impairment postural dysfunction Impairment forward head, rounded and internally rounded shoulders, forward left shoulder with weakness posterior chain musculature Short Term Goal (STG) Patient to be instructed in postural correction techniques and exercises for improved postural alignment and decreased pain 07/10/23 STG Duration goal met Fisheries Enforcement Officer Goal (LTG) Patient to be independent and compliant with HEP and demonstrate improved postural alignment statically and dynamically with function LTG Duration 08/20/23 Two Impairment neck disability index score 28 % Short Term Goal (STG) Decrease neck disability index score to no greater than 20% as measure of improved neck function and activity tolerance 06/30/23 Neck disability index score 17.7 this session 07/10/23: 38% this am STG Duration goal met Fisheries Enforcement Officer Goal (LTG) Decrease neck disability index score to no greater than 10% as measure of improved neck function and activity tolerance LTG Duration 08/20/23 One Impairment left sided neck pain as high as 8/10 Short Term Goal (STG) decrease pain to no greater than 5/10 with all usual activities 07/10/23: goal met STG Duration 06/20/23 Fisheries Enforcement Officer Goal (LTG) decrease pain to no greater than 2/10 with all usual activiites LTG Duration 08/20/23 Assessment Summary Assessment Good progress. Achieved 169 degrees shoulder flexion with decreased impingement signs and symptoms. Able to progress light weight lifting activities with good tolerance . Physical Therapy Plan Frequency and Duration Frequency of Treatment 2x/Week Duration of treatment (weeks) 12 Plan of Care Start Date 05/22/23 Plan of Care End Date 08/20/23 Therapeutic Interventions Therapeutic Interventions Home Exercise Program,Manual Therapy,Neuromuscular Re- education,Patient/Caregiver Education,Self-Care/Home Management,Soft Tissue Mobilization,Taping, Therapeutic Activities, Therapeutic Exercises Modalities Cold Pack/Ice Massage,Electric Stimulation,Hot Packs, Infrared Therapy,Traction- Mechanical,Ultrasound Next Visit Focus/Plan Next Note Type Treatment Note Next Visit Plan assess response to today's treatment and progress as indicated.
--- NOTE | 2023-08-14 16:41 | PT.OTN ---
Current Diagnoses Cervicalgia (08/14/23) Abnormal posture (08/14/23) Physical Therapy Treatment Note PT-OP-A Visit Information Start: 05/21/23 16:37 Freq: Status: Active Protocol: Document 08/14/23 09:50 SAK (Rec: 08/14/23 10:30 [facility] [id number]) Out-Patient Physical Therapy Visit Information Visit Information Visit Type Treatment Note Visit Start Time 09:45 Visit Stop Time 10:40 Visit Number 15 PT-OP-B Current Condition Start: 05/21/23 16:37 Freq: Status: Active Protocol: Document 08/14/23 09:50 SAK (Rec: 08/14/23 10:30 [facility] [id number]) Current Condition History of Current Condition Current Complaints neck pain and left shoulder pain History of Current Condition HIstory RCR and frozen shoulder, arthritis, some other surgery left shoulder 10 + years ago. Reports chronic pain left sided neck . Went on vacation last fall fell while riding a bike; had shoulder and neck pain, shoulder pain better but neck pain persists. Patient does gentle yoga and exercise class; reports hurt her neck during exercise class , can't do jumping jacks Prior Treatments and Tests massage chiropractor x-ray: mild dynamic instagility at c3-4 level with gr 1 spondylolisthesis on flexion fiex miltilevel c/s spondylosis PT-OP-C Subjective Start: 05/21/23 16:37 Freq: Status: Active Protocol: Document 08/14/23 09:50 SAK (Rec: 08/14/23 10:30 [facility] [id number]) OP-PT Subjective Patient Comments Patient Comments Doing pretty well, min pain, still lacking full motion overhead and behind his back but noticing improvement. PT-OP-H Neuro Start: 05/21/23 16:37 Freq: Status: Active Protocol: Document 05/22/23 08:12 SAK (Rec: 05/22/23 09:02 [facility] [id number]) Sensation Evaluation Gross Sensation Gross Sensation WNL PT-OP-J Posture/Palpation/Skin Start: 05/21/23 16:37 Freq: Status: Active Protocol: Document 05/22/23 08:12 SAK (Rec: 05/22/23 09:02 SAK [id number]) Posture Evaluation Position Sitting Head/C-Spine Posture Forward Head T-Spine Posture Increased Kyphosis Shoulder Posture (L) Rounded,(R) Rounded Scapula Posture (L) Protracted,(R) Protracted Arm Posture (L) Internally Rotated,(R) Internally Rotated Palpation Assessment Location c/s Palpation Findings Soft Tissue Tightness, Tenderness Palpation Details left lateral c/s upper trap Palpation Findings Soft Tissue Tightness PT-OP-K Range of Motion Start: 05/21/23 16:37 Freq: Status: Active Protocol: Document 06/30/23 12:11 AB (Rec: 06/30/23 16:09 AB [id number]) Cervical Spine Range of Motion Cervical Spine Active Testing Position Seated Flexion 37 Extension 19 Rotation Left 54 Rotation Right 54 Lateral Flexion Left 12 Lateral Flexion Right 19 Comments CS measured with goniometer Visual for seated trunk rotation left 70% right 40% Shoulder Goniometric Range of Motion Shoulder Left Testing Position Standing Flexion 145 Abduction 144 External Rotation at 90 degrees 60 Abduction Internal Rotation 67 Comments IR also at 90 deg abduction * ant translation of humerus with IR moves into scaption with abduction measurement Right Testing Position 143 Extension 150 External Rotation at 90 degrees 90 Abduction Internal Rotation 90 Comments * moves into scaption with abduction IR measured at 90 deg abduction also, 8 ant translation of humerus PT-OP-L Special Tests Start: 05/21/23 16:37 Freq: Status: Active Protocol: Document 05/22/23 08:12 SAK (Rec: 05/22/23 09:02 [facility] [id number]) Special Tests Cervical Spine Special Tests Vertebral Artery Test Results - Alar Ligament Test Results - Foraminal Compression Test Results - Traction Test Results + dec pain Shoulder Special Tests Xiong Trey Impingement Test Results + L Drop Arm Rotator Cuff Test Results - PT-OP-Q Treatments Start: 05/21/23 16:37 Freq: Status: Active Protocol: Document 08/14/23 09:50 SAK (Rec: 08/14/23 10:30 SAK [id number]) Therapeutic Exercises Supine Exercises shld ER Supine Exercise Name elbow at side, 90/90 Equipment Used MR Reps/Minutes 10x2 Sidelying Exercises shoulder flex Sidelying Exercise Name with manual upward scapular rotation and inf GH glide Reps/Minutes 5x shoulder ab Sidelying Exercise Name with manual upward scapular rotation and inf GH glide Reps/Minutes 5x sidelying shoulder ER Side left Reps/Minutes X10 open book Reps/Minutes 5x Comments VC to hld for 5 breaths, performed post manual therapy Sitting Exercises lat pull lower trap shrug Resistance 12# Reps/Minutes 10x pulleys Sitting Exercise Name flexion, scaption Comments cues for pain-free ROM Standing Exercises lat pull Equipment Used 12# Reps/Minutes 10x doorway stretch Reps/Minutes 2x Comments 60 degrees tolerated. add to HEP next session wall push up Standing Exercise Name push up plus Side bilateral Reps/Minutes 10x Comments Verbal and visual cues shoulder shrugs Standing Exercise Name giorgi and unil Reps/Minutes 5x shoulder roll Reps/Minutes 5x Manual Therapy Treatment Soft Tissue Mobilization left pec post cuff, periscapular Body Location bilateral pec this session Mobilization Type Cross-Friction,Rolling, Sustained Pressure Intensity/Depth Moderate Body Position Sitting Comments sidelying PT-OP-R Modalities Start: 05/21/23 16:37 Freq: Status: Active Protocol: Document 08/14/23 09:50 [facility] (Rec: 08/14/23 16:36 [facility] [id number]) Hot Pack/Cold Pack Treatment Hot Pack Location left shoulder Patient Position Hooklying Patient Tolerance Good PT-OP-T Assessment and Plan Start: 05/21/23 16:37 Freq: Status: Active Protocol: Document 08/14/23 09:50 SAK (Rec: 08/14/23 10:30 [facility] [id number]) Physical Therapy Plan Frequency and Duration Frequency of Treatment 2x/Week Duration of treatment (weeks) 12 Plan of Care Start Date 05/22/23 Plan of Care End Date 08/20/23 Therapeutic Interventions Therapeutic Interventions Home Exercise Program,Manual Therapy,Neuromuscular Re- education,Patient/Caregiver Education,Self-Care/Home Management,Soft Tissue Mobilization,Taping, Therapeutic Activities, Therapeutic Exercises Modalities Cold Pack/Ice Massage,Electric Stimulation,Hot Packs, Infrared Therapy,Traction- Mechanical,Ultrasound Next Visit Focus/Plan Next Note Type Treatment Note Next Visit Plan assess response to today's treatment and progress as indicated.
--- NOTE | 2023-08-21 15:24 | PT.OTRE ---
Current Diagnoses Cervicalgia (08/21/23) Abnormal posture (08/21/23) Past Medical History (Last Reviewed 04/05/22 @ 13:29 by Emilia Thompson MA) Cataract Degenerative myopia Eczema Essential hypertension Foot pain Fractures (1974) Gastrointestinal food allergy Generalized anxiety disorder Hearing loss (1999) Hyperlipidemia Hypothyroidism (~1989) Lichen sclerosus Microscopic colitis Peritonitis (01/15/88) Retinal detachment (~2009) Shoulder pain Sleep apnea (~2003) Tinnitus Surgical History (Last Reviewed 04/05/22 @ 13:29 by Emilia Thompson MA) History of eye surgery (2011) History of gynecologic surgery (01/15/88) History of shoulder surgery (2010) Status post appendectomy (1987) Status post delivery (01/11/88) Status post ovarian cystectomy (03/31/14) Status post tonsillectomy and adenoidectomy (1955) Visit Care Team Role Provider Type Jovanna Dove, MELCHOR, EXECUTIVE PRODUCER Attending Provider Non-Staff Family Provider Primary Care Provider Referring Provider Specialty: Medical Address: [address] [place] [address], [phone] Email: Physical Therapy Re-Evaluation PT-OP-A Visit Information Start: 05/21/23 16:37 Freq: Status: Active Protocol: Document 08/21/23 09:48 SAK (Rec: 08/21/23 10:33 [facility] [id number]) Out-Patient Physical Therapy Visit Information Visit Information Visit Type Treatment Note Visit Start Time 09:45 Visit Stop Time 10:40 Visit Number 15 Evaluation Information Evaluation Date 05/22/23 Precautions Precautions can't lay prone PT-OP-B Current Condition Start: 05/21/23 16:37 Freq: Status: Active Protocol: Document 08/21/23 09:48 SAK (Rec: 08/21/23 10:33 [facility]AK [id number]) Current Condition History of Current Condition Current Complaints neck pain and left shoulder pain History of Current Condition HIstory RCR and frozen shoulder, arthritis, some other surgery left shoulder 10 + years ago. Reports chronic pain left sided neck . Went on vacation last fall fell while riding a bike; had shoulder and neck pain, shoulder pain better but neck pain persists. Patient does gentle yoga and exercise class; reports hurt her neck during exercise class , can't do jumping jacks Prior Treatments and Tests massage chiropractor x-ray: mild dynamic instagility at c3-4 level with gr 1 spondylolisthesis on flexion fiex miltilevel c/s spondylosis PT-OP-C Subjective Start: 05/21/23 16:37 Freq: Status: Active Protocol: Document 08/21/23 09:48 SAK (Rec: 08/21/23 10:33 [facility] [id number]) OP-PT Subjective Patient Comments Patient Comments REalizes neck much worse with hiking, looking down. Shoulder worse today after maybe sleeping wrong; woke up in the middle of the night with increase in pain and was laying on her left shoulder. Reports worse pain underneath left scapula. PT-OP-H Neuro Start: 05/21/23 16:37 Freq: Status: Active Protocol: Document 05/22/23 08:12 SAK (Rec: 05/22/23 09:02 SAK [id number]) Sensation Evaluation Gross Sensation Gross Sensation WNL PT-OP-J Posture/Palpation/Skin Start: 05/21/23 16:37 Freq: Status: Active Protocol: Document 05/22/23 08:12 SAK (Rec: 05/22/23 09:02 SAK [id number]) Posture Evaluation Position Sitting Head/C-Spine Posture Forward Head T-Spine Posture Increased Kyphosis Shoulder Posture (L) Rounded,(R) Rounded Scapula Posture (L) Protracted,(R) Protracted Arm Posture (L) Internally Rotated,(R) Internally Rotated Palpation Assessment Location c/s Palpation Findings Soft Tissue Tightness, Tenderness Palpation Details left lateral c/s upper trap Palpation Findings Soft Tissue Tightness PT-OP-K Range of Motion Start: 05/21/23 16:37 Freq: Status: Active Protocol: Document 06/30/23 12:11 AB (Rec: 06/30/23 16:09 AB [id number]) Cervical Spine Range of Motion Cervical Spine Active Testing Position Seated Flexion 37 Extension 19 Rotation Left 54 Rotation Right 54 Lateral Flexion Left 12 Lateral Flexion Right 19 Comments CS measured with goniometer Visual for seated trunk rotation left 70% right 40% Shoulder Goniometric Range of Motion Shoulder Measured in Degrees Left Testing Position Standing Flexion 145 Abduction 144 External Rotation at 90 degrees 60 Abduction Internal Rotation 67 Comments IR also at 90 deg abduction * ant translation of humerus with IR moves into scaption with abduction measurement Right Testing Position 143 Extension 150 External Rotation at 90 degrees 90 Abduction Internal Rotation 90 Comments * moves into scaption with abduction IR measured at 90 deg abduction also, 8 ant translation of humerus PT-OP-L Special Tests Start: 05/21/23 16:37 Freq: Status: Active Protocol: Document 05/22/23 08:12 [facility] (Rec: 05/22/23 09:02 [facility] [id number]) Special Tests Cervical Spine Special Tests Vertebral Artery Test Results - Alar Ligament Test Results - Foraminal Compression Test Results - Traction Test Results + dec pain Shoulder Special Tests Xiong Trey Impingement Test Results + L Drop Arm Rotator Cuff Test Results - PT-OP-Q Treatments Start: 05/21/23 16:37 Freq: Status: Active Protocol: Document 08/21/23 09:48 [facility] (Rec: 08/21/23 10:33 [facility] [id number]) Therapeutic Exercises Sitting Exercises pulleys Sitting Exercise Name flexion, scaption Comments cues for pain-free ROM Standing Exercises doorway stretch Standing Exercise Name unilateral next session for subscap stretch Manual Therapy Treatment Soft Tissue Mobilization left pec post cuff, periscapular Body Location bilateral pec this session Mobilization Type Cross-Friction,Rolling, Sustained Pressure Intensity/Depth Moderate Body Position Sitting Comments sidelying PT-OP-R Modalities Start: 05/21/23 16:37 Freq: Status: Active Protocol: Document 08/21/23 09:48 [facility] (Rec: 08/21/23 10:33 [facility] [id number]) Infrared Treatment Treatment left shoulder Body Position Sitting Continuous/Pulsed cont Program or Protocal muscle pain and stiffness Comments 6 locations RC, subscap PT-OP-T Assessment and Plan Start: 05/21/23 16:37 Freq: Status: Active Protocol: Document 08/21/23 09:48 [facility] (Rec: 08/21/23 10:33 [facility] [id number]) Physical Therapy Assessment Goals Three Impairment postural dysfunction Impairment forward head, rounded and internally rounded shoulders, forward left shoulder with weakness posterior chain musculature Short Term Goal (STG) Patient to be instructed in postural correction techniques and exercises for improved postural alignment and decreased pain 07/10/23 STG Duration goal met Mixer Lever Operator Goal (LTG) Patient to be independent and compliant with HEP and demonstrate improved postural alignment statically and dynamically with function 08/21/23: good compliance, mild cues for correct performance. Continue to progress HEP LTG Duration 09/20/23 Two Impairment neck disability index score 28 % Short Term Goal (STG) Decrease neck disability index score to no greater than 20% as measure of improved neck function and activity tolerance 06/30/23 Neck disability index score 17.7 this session 07/10/23: 38% this am STG Duration goal met Mixer Lever Operator Goal (LTG) Decrease neck disability index score to no greater than 10% as measure of improved neck function and activity tolerance 08/21/23: goal progress LTG Duration 09/20/23 One Impairment left sided neck pain as high as 8/10 Short Term Goal (STG) decrease pain to no greater than 5/10 with all usual activities 07/10/23: goal met STG Duration goal met Mixer Lever Operator Goal (LTG) decrease pain to no greater than 2/10 with all usual activiites LTG Duration 09/20/23 Assessment Summary Assessment Making good progress toward PT goals. Noted improved elevation left shoulder to WNL with use of pulleys but with end-range impingement pain. Most pain subscap. Trial cold laser to RC insertion, subscap and subscap f/b soft tissue mobilization, periscap trigger point treatment and moist heat. Mod cues for deep breathing, relaxed scap region. Feel she would benefit from further PT to help her fully achieve her PT goals and return to [facility]. Physical Therapy Plan Frequency and Duration Frequency of Treatment 1x/Week Duration of treatment (weeks) 4 Plan of Care Start Date 08/20/23 Plan of Care End Date 09/20/23 Therapeutic Interventions Therapeutic Interventions Home Exercise Program,Manual Therapy,Neuromuscular Re- education,Patient/Caregiver Education,Self-Care/Home Management,Soft Tissue Mobilization,Taping, Therapeutic Activities, Therapeutic Exercises Modalities Cold Pack/Ice Massage,Electric Stimulation,Hot Packs, Infrared Therapy,Traction- Mechanical,Ultrasound Next Visit Focus/Plan Next Note Type Treatment Note Next Visit Plan Assess response to today's treatment, continue to progress strengthening and ROM left shoulder, neck flexibility and postural retraining.
--- NOTE | 2023-08-21 15:24 | PT.OPPOC ---
Physical, Occupational & Speech Therapy At [facility] Current Diagnoses Cervicalgia (08/21/23) Abnormal posture (08/21/23) Visit Care Team Role Provider Type Jovanna Dove, MELCHOR, SAXOPHONE ASSEMBLER Attending Provider Non-Staff Family Provider Primary Care Provider Referring Provider Specialty: Medical Address: [address] [place] [address], [phone] Email: Plan Of Care PT-OP-T Assessment and Plan Start: 05/21/23 16:37 Freq: Status: Active Protocol: Document 08/21/23 09:48 SAK (Rec: 08/21/23 10:33 SAK [id number]) Physical Therapy Assessment Goals Three Impairment postural dysfunction Impairment forward head, rounded and internally rounded shoulders, forward left shoulder with weakness posterior chain musculature Short Term Goal (STG) Patient to be instructed in postural correction techniques and exercises for improved postural alignment and decreased pain 07/10/23 STG Duration goal met Care Home Goal (LTG) Patient to be independent and compliant with HEP and demonstrate improved postural alignment statically and dynamically with function 08/21/23: good compliance, mild cues for correct performance. Continue to progress HEP LTG Duration 09/20/23 Two Impairment neck disability index score 28 % Short Term Goal (STG) Decrease neck disability index score to no greater than 20% as measure of improved neck function and activity tolerance 06/30/23 Neck disability index score 17.7 this session 07/10/23: 38% this am STG Duration goal met Crop Duster Helper Goal (LTG) Decrease neck disability index score to no greater than 10% as measure of improved neck function and activity tolerance 08/21/23: goal progress LTG Duration 09/20/23 One Impairment left sided neck pain as high as 8/10 Short Term Goal (STG) decrease pain to no greater than 5/10 with all usual activities 07/10/23: goal met STG Duration goal met Crop Duster Helper Goal (LTG) decrease pain to no greater than 2/10 with all usual activiites LTG Duration 09/20/23 Assessment Summary Assessment Making good progress toward PT goals. Noted improved elevation left shoulder to WNL with use of pulleys but with end-range impingement pain. Most pain subscap. Trial cold laser to RC insertion, subscap and subscap f/b soft tissue mobilization, periscap trigger point treatment and moist heat. Mod cues for deep breathing, relaxed scap region. Feel she would benefit from further PT to help her fully achieve her PT goals and return to [facility]. Physical Therapy Plan Frequency and Duration Frequency of Treatment 1x/Week Duration of treatment (weeks) 4 Plan of Care Start Date 08/20/23 Plan of Care End Date 09/20/23 Therapeutic Interventions Therapeutic Interventions Home Exercise Program,Manual Therapy,Neuromuscular Re- education,Patient/Caregiver Education,Self-Care/Home Management,Soft Tissue Mobilization,Taping, Therapeutic Activities, Therapeutic Exercises Modalities Cold Pack/Ice Massage,Electric Stimulation,Hot Packs, Infrared Therapy,Traction- Mechanical,Ultrasound Next Visit Focus/Plan Next Note Type Treatment Note Next Visit Plan Assess response to today's treatment, continue to progress strengthening and ROM left shoulder, neck flexibility and postural retraining. Plan of Care Dates Plan of Care Start Date 08/20/23 Plan of Care End Date 09/20/23 Electronically Signed by: Ling Coronel, PT 08/21/23 1496 If you are in agreement with this Plan of Care, please return a signed and dated copy. I have reviewed this Plan of Care and certify that the skilled therapy services above are required to meet the patient?s needs. Physician Signature Date Printed Name and Credentials Clinical Instructor Signature Printed Name and Credentials
--- NOTE | 2023-09-04 11:44 | PT.OTN ---
Current Diagnoses Cervicalgia (09/04/23) Abnormal posture (09/04/23) Physical Therapy Treatment Note PT-OP-A Visit Information Start: 05/21/23 16:37 Freq: Status: Active Protocol: Document 09/04/23 09:04 SAK (Rec: 09/04/23 09:50 [facility] [id number]) Out-Patient Physical Therapy Visit Information Visit Information Visit Type Treatment Note Visit Start Time 09:03 Visit Stop Time 09:50 Visit Number 15 Evaluation Information Evaluation Date 05/22/23 Precautions Precautions can't lay prone PT-OP-B Current Condition Start: 05/21/23 16:37 Freq: Status: Active Protocol: Document 09/04/23 09:04 SAK (Rec: 09/04/23 09:50 [facility] [id number]) Current Condition History of Current Condition Current Complaints neck pain and left shoulder pain History of Current Condition HIstory RCR and frozen shoulder, arthritis, some other surgery left shoulder 10 + years ago. Reports chronic pain left sided neck . Went on vacation last fall fell while riding a bike; had shoulder and neck pain, shoulder pain better but neck pain persists. Patient does gentle yoga and exercise class; reports hurt her neck during exercise class , can't do jumping jacks Prior Treatments and Tests massage chiropractor x-ray: mild dynamic instagility at c3-4 level with gr 1 spondylolisthesis on flexion fiex miltilevel c/s spondylosis PT-OP-C Subjective Start: 05/21/23 16:37 Freq: Status: Active Protocol: Document 09/04/23 09:04 SAK (Rec: 09/04/23 09:50 [facility] [id number]) OP-PT Subjective Patient Comments Patient Comments Reports pain 3-4/10 in am, didn't sleep well last night but not due to neck or shld. Overall achy every am, improves as day goes on. Did do exercise class yesterday maybe overdid, also long care drive was sore afterwards due to not supporting UE's with pillows. PT-OP-H Neuro Start: 05/21/23 16:37 Freq: Status: Active Protocol: Document 05/22/23 08:12 SAK (Rec: 05/22/23 09:02 SAK [id number]) Sensation Evaluation Gross Sensation Gross Sensation WNL PT-OP-J Posture/Palpation/Skin Start: 05/21/23 16:37 Freq: Status: Active Protocol: Document 05/22/23 08:12 SAK (Rec: 05/22/23 09:02 [facility] [id number]) Posture Evaluation Position Sitting Head/C-Spine Posture Forward Head T-Spine Posture Increased Kyphosis Shoulder Posture (L) Rounded,(R) Rounded Scapula Posture (L) Protracted,(R) Protracted Arm Posture (L) Internally Rotated,(R) Internally Rotated Palpation Assessment Location c/s Palpation Findings Soft Tissue Tightness, Tenderness Palpation Details left lateral c/s upper trap Palpation Findings Soft Tissue Tightness PT-OP-K Range of Motion Start: 05/21/23 16:37 Freq: Status: Active Protocol: Document 06/30/23 12:11 AB (Rec: 06/30/23 16:09 AB [id number]) Cervical Spine Range of Motion Cervical Spine Active Testing Position Seated Flexion 37 Extension 19 Rotation Left 54 Rotation Right 54 Lateral Flexion Left 12 Lateral Flexion Right 19 Comments CS measured with goniometer Visual for seated trunk rotation left 70% right 40% Shoulder Goniometric Range of Motion Shoulder Left Testing Position Standing Flexion 145 Abduction 144 External Rotation at 90 degrees 60 Abduction Internal Rotation 67 Comments IR also at 90 deg abduction * ant translation of humerus with IR moves into scaption with abduction measurement Right Testing Position 143 Extension 150 External Rotation at 90 degrees 90 Abduction Internal Rotation 90 Comments * moves into scaption with abduction IR measured at 90 deg abduction also, 8 ant translation of humerus PT-OP-L Special Tests Start: 05/21/23 16:37 Freq: Status: Active Protocol: Document 05/22/23 08:12 [facility] (Rec: 05/22/23 09:02 [facility] [id number]) Special Tests Cervical Spine Special Tests Vertebral Artery Test Results - Alar Ligament Test Results - Foraminal Compression Test Results - Traction Test Results + dec pain Shoulder Special Tests Xiong Trey Impingement Test Results + L Drop Arm Rotator Cuff Test Results - PT-OP-Q Treatments Start: 05/21/23 16:37 Freq: Status: Active Protocol: Document 09/04/23 09:04 SAK (Rec: 09/04/23 09:50 SAK [id number]) Therapeutic Exercises Supine Exercises shld ER Supine Exercise Name PROM to AAROM Reps/Minutes 10x2 Comments upper arm supported on towel roll Sidelying Exercises sidelying shoulder ER Side bilateral Reps/Minutes X10 Comments cue painfree ROM, scapular activation, 5s hold Sitting Exercises pulleys Sitting Exercise Name flexion, scaption Comments cues for pain-free ROM, end range stretch, correct set up for home seated pec stretch Equipment Used ball at thoracic spine Standing Exercises row Comments review scapular activation back not down wall posture Reps/Minutes 10x Comments cues to start with core activation, feel growing taller Manual Therapy Treatment Soft Tissue Mobilization left pec post cuff, periscapular Body Location bilateral pec this session Mobilization Type Cross-Friction,Rolling, Sustained Pressure Intensity/Depth Moderate Body Position Supine Comments sidelying UT, c/s Mobilization Type Myofascial Release,Sustained Pressure Intensity/Depth Moderate Body Position Supine Joint Mobilizations left GH Joint left GH Direction post, inf Grade II Body Position Hooklying Self-Care/Home Management Treatment Education Patient Education Home Exercise Program,Pain Management,Posture Other Education continue self examination for habitual postures and movements contributing to her pain, listen to her body during exercise classes focus on form , core. PT-OP-R Modalities Start: 05/21/23 16:37 Freq: Status: Active Protocol: Document 08/21/23 09:48 [facility] (Rec: 08/21/23 10:33 [facility] [id number]) Infrared Treatment Treatment left shoulder Body Position Sitting Continuous/Pulsed cont Program or Protocal muscle pain and stiffness Comments 6 locations RC, subscap PT-OP-T Assessment and Plan Start: 05/21/23 16:37 Freq: Status: Active Protocol: Document 09/04/23 09:04 [facility] (Rec: 09/04/23 09:50 [facility] [id number]) Physical Therapy Assessment Goals Three Impairment postural dysfunction Impairment forward head, rounded and internally rounded shoulders, forward left shoulder with weakness posterior chain musculature Short Term Goal (STG) Patient to be instructed in postural correction techniques and exercises for improved postural alignment and decreased pain 07/10/23: goal progress 09/04/23: goal met, ongoing progression STG Duration goal met [facility] Goal (LTG) Patient to be independent and compliant with HEP and demonstrate improved postural alignment statically and dynamically with function 08/21/23: good compliance, mild cues for correct performance. Continue to progress HEP LTG Duration 09/20/23 Two Impairment neck disability index score 28 % Short Term Goal (STG) Decrease neck disability index score to no greater than 20% as measure of improved neck function and activity tolerance 06/30/23 Neck disability index score 17.7 this session 07/10/23: 38% this am 09/04/23: dec to 34% STG Duration goal met [employer] Goal (LTG) Decrease neck disability index score to no greater than 10% as measure of improved neck function and activity tolerance 08/21/23: goal progress LTG Duration 09/20/23 One Impairment left sided neck pain as high as 8/10 Short Term Goal (STG) decrease pain to no greater than 5/10 with all usual activities 07/10/23: goal met STG Duration goal met [employer] Goal (LTG) decrease pain to no greater than 2/10 with all usual activiites 09/04/23: dec to 4 LTG Duration 09/20/23 Progress Towards Goals Progress Towards Goals Progressing Toward Goals Assessment Summary Assessment Patient improves with PT, symptoms easily exacerbated with activity. Continue education and correction patient posture, noted while standing talking start of session patient tendency to put hands on hips with resulting forward shoulders, ant translation head of humerus. Hasn't been doing s/ l shoulder ER; issued new HO. Lacking full shoulder ER left , improved with manual techniques. Patient received pulleys in mail but was setting up and using incorrectly; demonstrated good understanding after instruction Physical Therapy Plan Frequency and Duration Frequency of Treatment 1x/Week Duration of treatment (weeks) 4 Plan of Care Start Date 08/20/23 Plan of Care End Date 09/20/23 Therapeutic Interventions Therapeutic Interventions Home Exercise Program,Manual Therapy,Neuromuscular Re- education,Patient/Caregiver Education,Self-Care/Home Management,Soft Tissue Mobilization,Taping, Therapeutic Activities, Therapeutic Exercises Modalities Cold Pack/Ice Massage,Electric Stimulation,Hot Packs, Infrared Therapy,Traction- Mechanical,Ultrasound Next Visit Focus/Plan Next Note Type Treatment Note Next Visit Plan Review patient's HEP (to bring all written handouts), progress shoulder ROM and strengthening as able especially left shoulder ER. Continue postural correction ed and ex. Manual therapy PRN .
--- NOTE | 2023-09-11 12:54 | PT.OTN ---
Current Diagnoses Cervicalgia (09/11/23) Abnormal posture (09/11/23) Physical Therapy Treatment Note PT-OP-A Visit Information Start: 05/21/23 16:37 Freq: Status: Active Protocol: Document 09/11/23 10:33 AB (Rec: 09/11/23 12:54 AB [id number]) Out-Patient Physical Therapy Visit Information Visit Information Visit Type Treatment Note Visit Start Time 10:33 Visit Stop Time 11:23 Visit Number 16 Number of SECURITY CONSULTANT Visits 1 Evaluation Information Evaluation Date 05/22/23 Precautions Precautions can't lay prone PT-OP-B Current Condition Start: 05/21/23 16:37 Freq: Status: Active Protocol: Document 09/04/23 09:04 SAK (Rec: 09/04/23 09:50 SAK [id number]) Current Condition History of Current Condition Current Complaints neck pain and left shoulder pain History of Current Condition HIstory RCR and frozen shoulder, arthritis, some other surgery left shoulder 10 + years ago. Reports chronic pain left sided neck . Went on vacation last fall fell while riding a bike; had shoulder and neck pain, shoulder pain better but neck pain persists. Patient does gentle yoga and exercise class; reports hurt her neck during exercise class , can't do jumping jacks Prior Treatments and Tests massage chiropractor x-ray: mild dynamic instagility at c3-4 level with gr 1 spondylolisthesis on flexion fiex miltilevel c/s spondylosis PT-OP-C Subjective Start: 05/21/23 16:37 Freq: Status: Active Protocol: Document 09/11/23 10:33 AB (Rec: 09/11/23 12:54 AB [id number]) OP-PT Subjective Patient Comments Patient Comments Patient reports she did something to her right shoulder, possibly from the [employer] class or carrying items to assist with carrying something for a baby shower. Left biceps tendon tender to palpation. Patient reports left shoulder is better, neck is pretty good not great. Patient comments that she forgot to bring in her HEP. CS rotation slightly less to right. PT-OP-H Neuro Start: 05/21/23 16:37 Freq: Status: Active Protocol: Document 05/22/23 08:12 SAK (Rec: 05/22/23 09:02 SAK [id number]) Sensation Evaluation Gross Sensation Gross Sensation WNL PT-OP-J Posture/Palpation/Skin Start: 05/21/23 16:37 Freq: Status: Active Protocol: Document 05/22/23 08:12 [facility] (Rec: 05/22/23 09:02 [facility] [id number]) Posture Evaluation Position Sitting Head/C-Spine Posture Forward Head T-Spine Posture Increased Kyphosis Shoulder Posture (L) Rounded,(R) Rounded Scapula Posture (L) Protracted,(R) Protracted Arm Posture (L) Internally Rotated,(R) Internally Rotated Palpation Assessment Location c/s Palpation Findings Soft Tissue Tightness, Tenderness Palpation Details left lateral c/s upper trap Palpation Findings Soft Tissue Tightness PT-OP-K Range of Motion Start: 05/21/23 16:37 Freq: Status: Active Protocol: Document 06/30/23 12:11 AB (Rec: 06/30/23 16:09 AB [id number]) Cervical Spine Range of Motion Cervical Spine Active Testing Position Seated Flexion 37 Extension 19 Rotation Left 54 Rotation Right 54 Lateral Flexion Left 12 Lateral Flexion Right 19 Comments CS measured with goniometer Visual for seated trunk rotation left 70% right 40% Shoulder Goniometric Range of Motion Shoulder Left Testing Position Standing Flexion 145 Abduction 144 External Rotation at 90 degrees 60 Abduction Internal Rotation 67 Comments IR also at 90 deg abduction * ant translation of humerus with IR moves into scaption with abduction measurement Right Testing Position 143 Extension 150 External Rotation at 90 degrees 90 Abduction Internal Rotation 90 Comments * moves into scaption with abduction IR measured at 90 deg abduction also, 8 ant translation of humerus PT-OP-L Special Tests Start: 05/21/23 16:37 Freq: Status: Active Protocol: Document 05/22/23 08:12 [facility] (Rec: 05/22/23 09:02 [facility] [id number]) Special Tests Cervical Spine Special Tests Vertebral Artery Test Results - Alar Ligament Test Results - Foraminal Compression Test Results - Traction Test Results + dec pain Shoulder Special Tests Xiong Trey Impingement Test Results + L Drop Arm Rotator Cuff Test Results - PT-OP-Q Treatments Start: 05/21/23 16:37 Freq: Status: Active Protocol: Document 09/11/23 10:33 AB (Rec: 09/11/23 12:54 AB [id number]) Therapeutic Exercises Supine Exercises serratus punch Side bilateral Reps/Minutes X10 Comments verbal cues CS rotation AROM Supine Exercise Name on occipital float Reps/Minutes 2 minutes Comments Vc to perform slowly in pain free range Sidelying Exercises open book Side bilateral Reps/Minutes 5x Comments VC to hld for 5 breaths, performed post manual therapy Standing Exercises lat pull Side bilateral Resistance level one band Reps/Minutes X1 Comments not pedro row Side bilateral Equipment Used level one band Reps/Minutes X15 Comments monitored for pain Manual Therapy Treatment Soft Tissue Mobilization Scalenes at lateral clavicle, UT, levator scap, CS paraspinals, intervertebral tissue Body Location also upper thoracic parapinals /intervertebral tissue this session. Mobilization Type Cross-Friction,Rolling, Sustained Pressure Body Position Sitting Joint Mobilizations scapular mobilization left shoulder Joint bilaterally Direction depression and adduction Grade III Body Position Sidelying Reps/Duration X10 PT-OP-R Modalities Start: 05/21/23 16:37 Freq: Status: Active Protocol: Document 09/11/23 10:33 AB (Rec: 09/11/23 12:54 AB [id number]) Hot Pack/Cold Pack Treatment ice Location left shoulder Patient Position Hooklying PT-OP-T Assessment and Plan Start: 05/21/23 16:37 Freq: Status: Active Protocol: Document 09/11/23 10:33 AB (Rec: 09/11/23 12:54 AB [id number]) Physical Therapy Assessment Goals Three Impairment postural dysfunction Impairment forward head, rounded and internally rounded shoulders, forward left shoulder with weakness posterior chain musculature Short Term Goal (STG) Patient to be instructed in postural correction techniques and exercises for improved postural alignment and decreased pain 07/10/23: goal progress 09/04/23: goal met, ongoing progression STG Duration goal met [facility] Goal (LTG) Patient to be independent and compliant with HEP and demonstrate improved postural alignment statically and dynamically with function 08/21/23: good compliance, mild cues for correct performance. Continue to progress HEP LTG Duration 09/20/23 Two Impairment neck disability index score 28 % Short Term Goal (STG) Decrease neck disability index score to no greater than 20% as measure of improved neck function and activity tolerance 06/30/23 Neck disability index score 17.7 this session 07/10/23: 38% this am 09/04/23: dec to 34% STG Duration goal met [employer] Goal (LTG) Decrease neck disability index score to no greater than 10% as measure of improved neck function and activity tolerance 08/21/23: goal progress LTG Duration 09/20/23 One Impairment left sided neck pain as high as 8/10 Short Term Goal (STG) decrease pain to no greater than 5/10 with all usual activities 07/10/23: goal met STG Duration goal met [facility] Goal (LTG) decrease pain to no greater than 2/10 with all usual activiites 09/04/23: dec to 07/15 LTG Duration 09/20/23 Assessment Summary Assessment Patient into session with increased left shoulder/ scapular pain, biceps tendon Tender to palpation. Patient reports pain persists end of session, did not pedro High row/ lat pull this session. Physical Therapy Plan Next Visit Focus/Plan Next Note Type Treatment Note Next Visit Plan Review patient's HEP (to bring all written handouts), progress shoulder ROM and strengthening as able especially left shoulder ER. Continue postural correction ed and ex. Manual therapy PRN .
--- NOTE | 2023-09-18 16:00 | PT.OTRE ---
Current Diagnoses Cervicalgia (09/18/23) Abnormal posture (09/18/23) Past Medical History (Last Reviewed 04/05/22 @ 13:29 by Emilia Thompson MA) Cataract Degenerative myopia Eczema Essential hypertension Foot pain Fractures (1974) Gastrointestinal food allergy Generalized anxiety disorder Hearing loss (1999) Hyperlipidemia Hypothyroidism (~1989) Lichen sclerosus Microscopic colitis Peritonitis (01/15/88) Retinal detachment (~2009) Shoulder pain Sleep apnea (~2003) Tinnitus Surgical History (Last Reviewed 04/05/22 @ 13:29 by Emilia Thompson MA) History of eye surgery (2011) History of gynecologic surgery (01/15/88) History of shoulder surgery (2010) Status post appendectomy (1987) Status post delivery (01/11/88) Status post ovarian cystectomy (03/31/14) Status post tonsillectomy and adenoidectomy (1955) Visit Care Team Role Provider Type Jovanna Dove, MELCHOR, PERMACULTURE DESIGNER Attending Provider Non-Staff Family Provider Primary Care Provider Referring Provider Specialty: Medical Address: [address] [place] [address], [phone] Email: Physical Therapy Re-Evaluation PT-OP-A Visit Information Start: 05/21/23 16:37 Freq: Status: Active Protocol: Document 09/18/23 09:48 SAK (Rec: 09/18/23 10:35 [facility] [id number]) Out-Patient Physical Therapy Visit Information Visit Information Visit Type Treatment Note Visit Start Time 09:48 Visit Stop Time 11:23 Visit Number 17 Number of BUTCHER SUPERVISOR Visits 0 Evaluation Information Evaluation Date 05/22/23 Precautions Precautions can't lay prone PT-OP-B Current Condition Start: 05/21/23 16:37 Freq: Status: Active Protocol: Document 09/18/23 09:48 SAK (Rec: 09/18/23 10:35 [facility] [id number]) Current Condition History of Current Condition Current Complaints neck pain and left shoulder pain History of Current Condition HIstory RCR and frozen shoulder, arthritis, some other surgery left shoulder 10 + years ago. Reports chronic pain left sided neck . Went on vacation last fall fell while riding a bike; had shoulder and neck pain, shoulder pain better but neck pain persists. Patient does gentle yoga and exercise class; reports hurt her neck during exercise class , can't do jumping jacks Prior Treatments and Tests massage chiropractor x-ray: mild dynamic instagility at c3-4 level with gr 1 spondylolisthesis on flexion fiex miltilevel c/s spondylosis PT-OP-C Subjective Start: 05/21/23 16:37 Freq: Status: Active Protocol: Document 09/18/23 09:48 SAK (Rec: 09/18/23 10:35 SAK [id number]) OP-PT Subjective Patient Comments Patient Comments Right shoulder 50% better, neck achy. Brought HEP for review, paring down as able. Concerned about travel, use of E-bike with shoulder and neck issues. PT-OP-H Neuro Start: 05/21/23 16:37 Freq: Status: Active Protocol: Document 05/22/23 08:12 SAK (Rec: 05/22/23 09:02 SAK [id number]) Sensation Evaluation Gross Sensation Gross Sensation WNL PT-OP-J Posture/Palpation/Skin Start: 05/21/23 16:37 Freq: Status: Active Protocol: Document 05/22/23 08:12 SAK (Rec: 05/22/23 09:02 SAK [id number]) Posture Evaluation Position Sitting Head/C-Spine Posture Forward Head T-Spine Posture Increased Kyphosis Shoulder Posture (L) Rounded,(R) Rounded Scapula Posture (L) Protracted,(R) Protracted Arm Posture (L) Internally Rotated,(R) Internally Rotated Palpation Assessment Location c/s Palpation Findings Soft Tissue Tightness, Tenderness Palpation Details left lateral c/s upper trap Palpation Findings Soft Tissue Tightness PT-OP-K Range of Motion Start: 05/21/23 16:37 Freq: Status: Active Protocol: Document 06/30/23 12:11 AB (Rec: 06/30/23 16:09 AB [id number]) Cervical Spine Range of Motion Cervical Spine Active Testing Position Seated Flexion 37 Extension 19 Rotation Left 54 Rotation Right 54 Lateral Flexion Left 12 Lateral Flexion Right 19 Comments CS measured with goniometer Visual for seated trunk rotation left 70% right 40% Shoulder Goniometric Range of Motion Shoulder Measured in Degrees Left Testing Position Standing Flexion 145 Abduction 144 External Rotation at 90 degrees 60 Abduction Internal Rotation 67 Comments IR also at 90 deg abduction * ant translation of humerus with IR moves into scaption with abduction measurement Right Testing Position 143 Extension 150 External Rotation at 90 degrees 90 Abduction Internal Rotation 90 Comments * moves into scaption with abduction IR measured at 90 deg abduction also, 8 ant translation of humerus PT-OP-L Special Tests Start: 05/21/23 16:37 Freq: Status: Active Protocol: Document 05/22/23 08:12 SAK (Rec: 05/22/23 09:02 [facility] [id number]) Special Tests Cervical Spine Special Tests Vertebral Artery Test Results - Alar Ligament Test Results - Foraminal Compression Test Results - Traction Test Results + dec pain Shoulder Special Tests Xiong Trey Impingement Test Results + L Drop Arm Rotator Cuff Test Results - PT-OP-Q Treatments Start: 05/21/23 16:37 Freq: Status: Active Protocol: Document 09/18/23 09:48 [facility] (Rec: 09/18/23 10:35 [facility] [id number]) Cardio Equipment Bicycle (Upright) Duration (Minutes) 7 Resistance 4 Seat Position 5 Other cues for alignment,long neck and spine, core and scap activation, Therapeutic Exercises Supine Exercises shld ER Supine Exercise Name PROM to AAROM Reps/Minutes 10x2 Comments upper arm supported on towel roll CS rotation AROM Supine Exercise Name slider sheet; recommend silk pillowcase at home Reps/Minutes 2 minutes Comments Vc to perform slowly in pain free range pec stretch Supine Exercise Name manual Reps/Minutes 60 sec Sidelying Exercises sidelying shoulder ER Sidelying Exercise Name verbal review open book Sidelying Exercise Name HEP Standing Exercises cervical everett Reps/Minutes L1 TB Comments 10x5 Manual Therapy Treatment Soft Tissue Mobilization left pec post cuff, periscapular Body Location bilateral pec this session Mobilization Type Cross-Friction,Rolling, Sustained Pressure Intensity/Depth Moderate Body Position Supine Comments sidelying UT, c/s Mobilization Type Myofascial Release,Sustained Pressure Intensity/Depth Moderate Body Position Supine Comments also long head biceps cross friction with ed patient Joint Mobilizations scapular mobilization left shoulder Joint bilaterally Direction depression and adduction Grade III Body Position Sidelying Reps/Duration X10 Manual Techniques chin tuck Type review Reps/Duration X5 occipital release, gentle manual traction Body Position Hooklying Self-Care/Home Management Treatment Education Patient Education Body Mechanics,Home Exercise Program,Joint Protection, Posture,Safety Other Education instructed importance of core and scapular activation, getting close to objects lifting or moving including bike PT-OP-R Modalities Start: 05/21/23 16:37 Freq: Status: Active Protocol: Document 09/18/23 09:48 SAK (Rec: 09/18/23 15:58 SAK [id number]) Hot Pack/Cold Pack Treatment ice Location giorgi shoulders Patient Position Prone PT-OP-T Assessment and Plan Start: 05/21/23 16:37 Freq: Status: Active Protocol: Document 09/18/23 09:48 SAK (Rec: 09/18/23 10:35 SAK [id number]) Physical Therapy Assessment Goals Four Impairment bilateral shoulder pain and dysfunction Impairment Quickdash disability index score 45% Short Term Goal (STG) Improve Quickdash score by at least 50% STG Duration 10/18/23 Clerk General Office Goal (LTG) Decrease Quickdash score by at least 75% as measure of improved functional activity tolerance LTG Duration 11/18/23 Three Impairment postural dysfunction Impairment forward head, rounded and internally rounded shoulders, forward left shoulder with weakness posterior chain musculature Short Term Goal (STG) Patient to be instructed in postural correction techniques and exercises for improved postural alignment and decreased pain 07/10/23: goal progress 09/04/23: goal met, ongoing progression STG Duration goal met Mcc Goal (LTG) Patient to be independent and compliant with HEP and demonstrate improved postural alignment statically and dynamically with function 08/21/23: good compliance, mild cues for correct performance. Continue to progress HEP LTG Duration 11/18/23 Two Impairment neck disability index score 28 % Short Term Goal (STG) Decrease neck disability index score to no greater than 20% as measure of improved neck function and activity tolerance 06/30/23 Neck disability index score 17.7 this session 07/10/23: 38% this am 09/04/23: dec to 34% STG Duration 10/18/23 Mcc Goal (LTG) Decrease neck disability index score to no greater than 10% as measure of improved neck function and activity tolerance 08/21/23: goal progress LTG Duration 11/18/23 One Impairment left sided neck pain as high as 8/10 Short Term Goal (STG) decrease pain to no greater than 5/10 with all usual activities 07/10/23: goal met STG Duration goal met Mcc Goal (LTG) decrease pain to no greater than 2/10 with all usual activiites 09/04/23: dec to 4/10 LTG Duration 11/18/23 Assessment Summary Assessment Patient making good progress toward goals, though recent exacerbation of pain due to lifting multiple objects while helping a friend. Is concerned about her ability to tolerate travel which includes bicycling. Would benefit from further PT to help her fully achieve her goals and be able to self manage her symptoms. Physical Therapy Plan Frequency and Duration Frequency of Treatment 1x/Week Duration of treatment (weeks) 8 Plan of Care Start Date 09/18/23 Plan of Care End Date 11/18/23 Therapeutic Interventions Therapeutic Interventions Home Exercise Program,Manual Therapy,Neuromuscular Re- education,Patient/Caregiver Education,Self-Care/Home Management,Soft Tissue Mobilization,Taping, Therapeutic Activities, Therapeutic Exercises Modalities Cold Pack/Ice Massage,Electric Stimulation,Hot Packs, Infrared Therapy,Traction- Mechanical,Ultrasound Next Visit Focus/Plan Next Note Type Treatment Note Next Visit Plan Continue PT for postural correction, pain management, ROM and flexibility. Manual therapy and modalities PRN. Consider cold laser to right shoulder for pain relief and promotion of healing.
--- NOTE | 2023-09-18 16:00 | PT.OPPOC ---
Physical, Occupational & Speech Therapy At [facility] Current Diagnoses Cervicalgia (09/18/23) Abnormal posture (09/18/23) Visit Care Team Role Provider Type Jovanna Dove, MELCHOR, ADVERTISING SALES ASSISTANT Attending Provider Non-Staff Family Provider Primary Care Provider Referring Provider Specialty: Medical Address: [address] [place] [address], [phone] Email: Plan Of Care PT-OP-T Assessment and Plan Start: 05/21/23 16:37 Freq: Status: Active Protocol: Document 09/18/23 09:48 SAK (Rec: 09/18/23 10:35 SAK [id number]) Physical Therapy Assessment Goals Four Impairment bilateral shoulder pain and dysfunction Impairment Quickdash disability index score 45% Short Term Goal (STG) Improve Quickdash score by at least 50% STG Duration 10/18/23 Print Line Tailer Goal (LTG) Decrease Quickdash score by at least 75% as measure of improved functional activity tolerance LTG Duration 11/18/23 Three Impairment postural dysfunction Impairment forward head, rounded and internally rounded shoulders, forward left shoulder with weakness posterior chain musculature Short Term Goal (STG) Patient to be instructed in postural correction techniques and exercises for improved postural alignment and decreased pain 07/10/23: goal progress 09/04/23: goal met, ongoing progression STG Duration goal met Longterm Goal (LTG) Patient to be independent and compliant with HEP and demonstrate improved postural alignment statically and dynamically with function 08/21/23: good compliance, mild cues for correct performance. Continue to progress HEP LTG Duration 11/18/23 Two Impairment neck disability index score 28 % Short Term Goal (STG) Decrease neck disability index score to no greater than 20% as measure of improved neck function and activity tolerance 06/30/23 Neck disability index score 17.7 this session 07/10/23: 38% this am 09/04/23: dec to 34% STG Duration 10/18/23 Longterm Goal (LTG) Decrease neck disability index score to no greater than 10% as measure of improved neck function and activity tolerance 08/21/23: goal progress LTG Duration 11/18/23 One Impairment left sided neck pain as high as 8/10 Short Term Goal (STG) decrease pain to no greater than 5/10 with all usual activities 07/10/23: goal met STG Duration goal met Print Line Tailer Goal (LTG) decrease pain to no greater than 2/10 with all usual activiites 09/04/23: dec to 4/10 LTG Duration 11/18/23 Assessment Summary Assessment Patient making good progress toward goals, though recent exacerbation of pain due to lifting multiple objects while helping a friend. Is concerned about her ability to tolerate travel which includes bicycling. Would benefit from further PT to help her fully achieve her goals and be able to self manage her symptoms. Physical Therapy Plan Frequency and Duration Frequency of Treatment 1x/Week Duration of treatment (weeks) 8 Plan of Care Start Date 09/18/23 Plan of Care End Date 11/18/23 Therapeutic Interventions Therapeutic Interventions Home Exercise Program,Manual Therapy,Neuromuscular Re- education,Patient/Caregiver Education,Self-Care/Home Management,Soft Tissue Mobilization,Taping, Therapeutic Activities, Therapeutic Exercises Modalities Cold Pack/Ice Massage,Electric Stimulation,Hot Packs, Infrared Therapy,Traction- Mechanical,Ultrasound Next Visit Focus/Plan Next Note Type Treatment Note Next Visit Plan Continue PT for postural correction, pain management, ROM and flexibility. Manual therapy and modalities PRN. Consider cold laser to right shoulder for pain relief and promotion of healing. Plan of Care Dates Plan of Care Start Date 09/18/23 Plan of Care End Date 11/18/23 Electronically Signed by: Ling Coronel, PT 09/18/23 1600 If you are in agreement with this Plan of Care, please return a signed and dated copy. I have reviewed this Plan of Care and certify that the skilled therapy services above are required to meet the patient?s needs. Physician Signature Date Printed Name and Credentials Clinical Instructor Signature Printed Name and Credentials
--- NOTE | 2023-09-22 12:39 | PT.OTN ---
Current Diagnoses Cervicalgia (09/22/23) Abnormal posture (09/22/23) Physical Therapy Treatment Note PT-OP-A Visit Information Start: 05/21/23 16:37 Freq: Status: Active Protocol: Document 09/22/23 11:25 AB (Rec: 09/22/23 12:38 AB [id number]) Out-Patient Physical Therapy Visit Information Visit Information Visit Type Treatment Note Visit Start Time 11:20 Visit Stop Time 12:08 Visit Number 18 Number of MANAGED CARE LIAISON Visits 1 Evaluation Information Evaluation Date 05/22/23 Precautions Precautions can't lay prone PT-OP-B Current Condition Start: 05/21/23 16:37 Freq: Status: Active Protocol: Document 09/18/23 09:48 SAK (Rec: 09/18/23 10:35 SAK [id number]) Current Condition History of Current Condition Current Complaints neck pain and left shoulder pain History of Current Condition HIstory RCR and frozen shoulder, arthritis, some other surgery left shoulder 10 + years ago. Reports chronic pain left sided neck . Went on vacation last fall fell while riding a bike; had shoulder and neck pain, shoulder pain better but neck pain persists. Patient does gentle yoga and exercise class; reports hurt her neck during exercise class , can't do jumping jacks Prior Treatments and Tests massage chiropractor x-ray: mild dynamic instagility at c3-4 level with gr 1 spondylolisthesis on flexion fiex miltilevel c/s spondylosis PT-OP-C Subjective Start: 05/21/23 16:37 Freq: Status: Active Protocol: Document 09/22/23 11:25 AB (Rec: 09/22/23 12:38 AB [id number]) OP-PT Subjective Patient Comments Patient Comments Patient reports she is better, still has shoulder pain in the morning, is not doing her weight class due to right shoulder pain. 147 left shoulder flexion 135 right shoulder flexion AROM and reports stiffness left side CS with rotation left with slightly less AROM visibly compared to right PT-OP-H Neuro Start: 05/21/23 16:37 Freq: Status: Active Protocol: Document 05/22/23 08:12 SAK (Rec: 05/22/23 09:02 SAK [id number]) Sensation Evaluation Gross Sensation Gross Sensation WNL PT-OP-J Posture/Palpation/Skin Start: 02/14/24 16:37 Freq: Status: Active Protocol: Document 05/22/23 08:12 [facility] (Rec: 05/22/23 09:02 [facility] [id number]) Posture Evaluation Position Sitting Head/C-Spine Posture Forward Head T-Spine Posture Increased Kyphosis Shoulder Posture (L) Rounded,(R) Rounded Scapula Posture (L) Protracted,(R) Protracted Arm Posture (L) Internally Rotated,(R) Internally Rotated Palpation Assessment Location c/s Palpation Findings Soft Tissue Tightness, Tenderness Palpation Details left lateral c/s upper trap Palpation Findings Soft Tissue Tightness PT-OP-K Range of Motion Start: 05/21/23 16:37 Freq: Status: Active Protocol: Document 06/30/23 12:11 AB (Rec: 06/30/23 16:09 AB [id number]) Cervical Spine Range of Motion Cervical Spine Active Testing Position Seated Flexion 37 Extension 19 Rotation Left 54 Rotation Right 54 Lateral Flexion Left 12 Lateral Flexion Right 19 Comments CS measured with goniometer Visual for seated trunk rotation left 70% right 40% Shoulder Goniometric Range of Motion Shoulder Left Testing Position Standing Flexion 145 Abduction 144 External Rotation at 90 degrees 60 Abduction Internal Rotation 67 Comments IR also at 90 deg abduction * ant translation of humerus with IR moves into scaption with abduction measurement Right Testing Position 143 Extension 150 External Rotation at 90 degrees 90 Abduction Internal Rotation 90 Comments * moves into scaption with abduction IR measured at 90 deg abduction also, 8 ant translation of humerus PT-OP-L Special Tests Start: 05/21/23 16:37 Freq: Status: Active Protocol: Document 05/22/23 08:12 [facility] (Rec: 05/22/23 09:02 [facility] [id number]) Special Tests Cervical Spine Special Tests Vertebral Artery Test Results - Alar Ligament Test Results - Foraminal Compression Test Results - Traction Test Results + dec pain Shoulder Special Tests Xiong Trey Impingement Test Results + L Drop Arm Rotator Cuff Test Results - PT-OP-Q Treatments Start: 05/21/23 16:37 Freq: Status: Active Protocol: Document 09/22/23 11:25 AB (Rec: 09/22/23 12:38 AB [id number]) Therapeutic Exercises Supine Exercises CS rotation AROM Supine Exercise Name occipital float Reps/Minutes 2 minutes Comments Vc to perform slowly in pain free range pec stretch Supine Exercise Name manual Reps/Minutes 60 sec Sidelying Exercises open book Sidelying Exercise Name HEP Side bilateral Reps/Minutes X5 each side Comments post manual, VC to hold 5 breats Standing Exercises wall push up Standing Exercise Name push up plus Side bilateral Reps/Minutes X5 Comments Verbal and visual cues Other Exercises quadruped CS rotation Side bilateral Reps/Minutes X10 Comments VC to perform very slowly in pain free range Manual Therapy Treatment Soft Tissue Mobilization left pec post cuff, periscapular Body Location bilateral pec this session Mobilization Type Cross-Friction,Rolling, Sustained Pressure Intensity/Depth Moderate Body Position Supine Comments sidelying UT, c/s Mobilization Type Cross-Friction,Sustained Pressure Intensity/Depth Moderate Body Position Supine Comments also long head biceps cross friction with ed patient Joint Mobilizations scapular mobilization left shoulder Joint bilaterally Direction depression and adduction Grade III Body Position Sidelying Reps/Duration X10 PT-OP-R Modalities Start: 05/21/23 16:37 Freq: Status: Active Protocol: Document 09/18/23 09:48 SAK (Rec: 09/18/23 15:58 SAK [id number]) Hot Pack/Cold Pack Treatment ice Location giorgi shoulders Patient Position Prone PT-OP-T Assessment and Plan Start: 05/21/23 16:37 Freq: Status: Active Protocol: Document 09/22/23 11:25 AB (Rec: 09/22/23 12:38 AB [id number]) Physical Therapy Assessment Goals Four Impairment bilateral shoulder pain and dysfunction Impairment Quickdash disability index score 45% Short Term Goal (STG) Improve Quickdash score by at least 50% STG Duration 10/18/23 Training And Development Specialist Goal (LTG) Decrease Quickdash score by at least 75% as measure of improved functional activity tolerance LTG Duration 11/18/23 Three Impairment postural dysfunction Impairment forward head, rounded and internally rounded shoulders, forward left shoulder with weakness posterior chain musculature Short Term Goal (STG) Patient to be instructed in postural correction techniques and exercises for improved postural alignment and decreased pain 07/10/23: goal progress 09/04/23: goal met, ongoing progression STG Duration goal met Training And Development Specialist Goal (LTG) Patient to be independent and compliant with HEP and demonstrate improved postural alignment statically and dynamically with function 08/21/23: good compliance, mild cues for correct performance. Continue to progress HEP LTG Duration 11/18/23 Two Impairment neck disability index score 28 % Short Term Goal (STG) Decrease neck disability index score to no greater than 20% as measure of improved neck function and activity tolerance 06/30/23 Neck disability index score 17.7 this session 07/10/23: 38% this am 09/04/23: dec to 34% STG Duration 10/18/23 Training And Development Specialist Goal (LTG) Decrease neck disability index score to no greater than 10% as measure of improved neck function and activity tolerance 08/21/23: goal progress LTG Duration 11/18/23 One Impairment left sided neck pain as high as 8/10 Short Term Goal (STG) decrease pain to no greater than 5/10 with all usual activities 07/10/23: goal met STG Duration goal met Halfway Goal (LTG) decrease pain to no greater than 2/10 with all usual activiites 09/04/23: dec to 4 LTG Duration 11/18/23 Assessment Summary Assessment 146 deg AROM right shoulder flexion end of session. Patient reports of neck feeling better with CS rotation left compared to start of session. Physical Therapy Plan Next Visit Focus/Plan Next Note Type Treatment Note Next Visit Plan Continue PT for postural correction, pain management, ROM and flexibility. Manual therapy and modalities PRN. Consider cold laser to right shoulder for pain relief and promotion of healing.
--- NOTE | 2023-10-03 10:44 | PT.OTN ---
Current Diagnoses Cervicalgia (10/03/23) Abnormal posture (10/03/23) Physical Therapy Treatment Note PT-OP-A Visit Information Start: 05/21/23 16:37 Freq: Status: Active Protocol: Document 10/03/23 08:08 AB (Rec: 10/03/23 10:44 AB [id number]) Out-Patient Physical Therapy Visit Information Visit Information Visit Type Treatment Note Visit Start Time 09:47 Visit Stop Time 10:33 Visit Number 19 Number of FLOOR SCRUBBER Visits 2 Evaluation Information Evaluation Date 05/22/23 Precautions Precautions can't lay prone PT-OP-B Current Condition Start: 05/21/23 16:37 Freq: Status: Active Protocol: Document 09/18/23 09:48 SAK (Rec: 09/18/23 10:35 SAK [id number]) Current Condition History of Current Condition Current Complaints neck pain and left shoulder pain History of Current Condition HIstory RCR and frozen shoulder, arthritis, some other surgery left shoulder 10 + years ago. Reports chronic pain left sided neck . Went on vacation last fall fell while riding a bike; had shoulder and neck pain, shoulder pain better but neck pain persists. Patient does gentle yoga and exercise class; reports hurt her neck during exercise class , can't do jumping jacks Prior Treatments and Tests massage chiropractor x-ray: mild dynamic instagility at c3-4 level with gr 1 spondylolisthesis on flexion fiex miltilevel c/s spondylosis PT-OP-C Subjective Start: 05/21/23 16:37 Freq: Status: Active Protocol: Document 10/03/23 08:08 AB (Rec: 10/03/23 10:44 AB [id number]) OP-PT Subjective Patient Comments Patient Comments Patient reports shoulder is a little better, was able to do short spurts of paddle boarding which hurt a little bit. Patient reports the neck is a little stiff. Pt rates neck pain 4/10 right shoulder 3/10 start of session. AROM right shoulder flexion 149 deg post L stretch PT-OP-H Neuro Start: 05/21/23 16:37 Freq: Status: Active Protocol: Document 05/22/23 08:12 SAK (Rec: 05/22/23 09:02 SAK [id number]) Sensation Evaluation Gross Sensation Gross Sensation WNL PT-OP-J Posture/Palpation/Skin Start: 05/21/23 16:37 Freq: Status: Active Protocol: Document 05/22/23 08:12 SAK (Rec: 05/22/23 09:02 [facility] [id number]) Posture Evaluation Position Sitting Head/C-Spine Posture Forward Head T-Spine Posture Increased Kyphosis Shoulder Posture (L) Rounded,(R) Rounded Scapula Posture (L) Protracted,(R) Protracted Arm Posture (L) Internally Rotated,(R) Internally Rotated Palpation Assessment Location c/s Palpation Findings Soft Tissue Tightness, Tenderness Palpation Details left lateral c/s upper trap Palpation Findings Soft Tissue Tightness PT-OP-K Range of Motion Start: 05/21/23 16:37 Freq: Status: Active Protocol: Document 06/30/23 12:11 AB (Rec: 06/30/23 16:09 AB [id number]) Cervical Spine Range of Motion Cervical Spine Active Testing Position Seated Flexion 37 Extension 19 Rotation Left 54 Rotation Right 54 Lateral Flexion Left 12 Lateral Flexion Right 19 Comments CS measured with goniometer Visual for seated trunk rotation left 70% right 40% Shoulder Goniometric Range of Motion Shoulder Left Testing Position Standing Flexion 145 Abduction 144 External Rotation at 90 degrees 60 Abduction Internal Rotation 67 Comments IR also at 90 deg abduction * ant translation of humerus with IR moves into scaption with abduction measurement Right Testing Position 143 Extension 150 External Rotation at 90 degrees 90 Abduction Internal Rotation 90 Comments * moves into scaption with abduction IR measured at 90 deg abduction also, 8 ant translation of humerus PT-OP-L Special Tests Start: 05/21/23 16:37 Freq: Status: Active Protocol: Document 05/22/23 08:12 [facility] (Rec: 05/22/23 09:02 [facility] [id number]) Special Tests Cervical Spine Special Tests Vertebral Artery Test Results - Alar Ligament Test Results - Foraminal Compression Test Results - Traction Test Results + dec pain Shoulder Special Tests Xiong Trey Impingement Test Results + L Drop Arm Rotator Cuff Test Results - PT-OP-Q Treatments Start: 05/21/23 16:37 Freq: Status: Active Protocol: Document 10/03/23 08:08 AB (Rec: 10/03/23 10:44 AB [id number]) Therapeutic Exercises Supine Exercises mini band Supine Exercise Name shoulder ER w ith flexion Side bilateral Resistance light blue band Reps/Minutes X10 CS rotation AROM Supine Exercise Name occipital float Reps/Minutes 2 minutes Comments Vc to perform slowly in pain free range Sidelying Exercises open book Sidelying Exercise Name HEP Side bilateral Reps/Minutes X5 each side Comments post manual, VC to hold 5 breats Standing Exercises L stretch Side bilateral Reps/Minutes X10 Comments verbal cues Other Exercises quadruped CS rotation Side bilateral Reps/Minutes X10 Comments VC to perform very slowly in pain free range Manual Therapy Treatment Soft Tissue Mobilization left pec post cuff, periscapular Body Location pec Mobilization Type Cross-Friction,Rolling Intensity/Depth Moderate Body Position Supine Comments sidelying Scalenes at lateral clavicle, UT, levator scap, CS paraspinals, intervertebral tissue Body Location also upper thoracic parapinals /intervertebral tissue this session. Mobilization Type Cross-Friction,Rolling, Sustained Pressure Body Position Sitting Joint Mobilizations left GH Joint bilateral GH Direction post, inf Grade II Body Position Hooklying scapular mobilization left shoulder Joint bilaterally Direction depression and adduction Grade III Body Position Sidelying Reps/Duration X10 PT-OP-R Modalities Start: 05/21/23 16:37 Freq: Status: Active Protocol: Document 09/18/23 09:48 SAK (Rec: 09/18/23 15:58 SAK [id number]) Hot Pack/Cold Pack Treatment ice Location giorgi shoulders Patient Position Prone PT-OP-T Assessment and Plan Start: 05/21/23 16:37 Freq: Status: Active Protocol: Document 10/03/23 08:08 AB (Rec: 10/03/23 10:44 AB [id number]) Physical Therapy Assessment Goals Four Impairment bilateral shoulder pain and dysfunction Impairment Quickdash disability index score 45% Short Term Goal (STG) Improve Quickdash score by at least 50% STG Duration 10/18/23 Logging Crew Supervisor Goal (LTG) Decrease Quickdash score by at least 75% as measure of improved functional activity tolerance LTG Duration 11/18/23 Three Impairment postural dysfunction Impairment forward head, rounded and internally rounded shoulders, forward left shoulder with weakness posterior chain musculature Short Term Goal (STG) Patient to be instructed in postural correction techniques and exercises for improved postural alignment and decreased pain 07/10/23: goal progress 09/04/23: goal met, ongoing progression STG Duration goal met Long-Term Goal (LTG) Patient to be independent and compliant with HEP and demonstrate improved postural alignment statically and dynamically with function 08/21/23: good compliance, mild cues for correct performance. Continue to progress HEP LTG Duration 11/18/23 Two Impairment neck disability index score 28 % Short Term Goal (STG) Decrease neck disability index score to no greater than 20% as measure of improved neck function and activity tolerance 06/30/23 Neck disability index score 17.7 this session 07/10/23: 38% this am 09/04/23: dec to 34% STG Duration 10/18/23 Logging Crew Supervisor Goal (LTG) Decrease neck disability index score to no greater than 10% as measure of improved neck function and activity tolerance 08/21/23: goal progress LTG Duration 11/18/23 One Impairment left sided neck pain as high as 8/10 Short Term Goal (STG) decrease pain to no greater than 5/10 with all usual activities 07/10/23: goal met STG Duration goal met Long-Term Goal (LTG) decrease pain to no greater than 2/10 with all usual activiites 09/04/23: dec to 4/10 LTG Duration 11/18/23 Assessment Summary Assessment Patient reports the neck feels looser end of session Physical Therapy Plan Frequency and Duration Frequency of Treatment 1x/Week Duration of treatment (weeks) 8 Plan of Care Start Date 09/18/23 Plan of Care End Date 11/18/23 Next Visit Focus/Plan Next Note Type Treatment Note Next Visit Plan Continue PT for postural correction, pain management, ROM and flexibility. Manual therapy and modalities PRN. Consider cold laser to right shoulder for pain relief and promotion of healing. [ End ]
--- NOTE | 2023-10-14 11:45 | PT.OTN ---
Current Diagnoses Cervicalgia (10/14/23) Abnormal posture (10/14/23) Physical Therapy Treatment Note PT-OP-A Visit Information Start: 05/21/23 16:37 Freq: Status: Active Protocol: Document 10/14/23 09:03 [facility] (Rec: 10/14/23 09:48 [facility] [id number]) Out-Patient Physical Therapy Visit Information Visit Information Visit Type Treatment Note Visit Start Time 09:03 Visit Stop Time 09:48 Visit Number 20 Number of NEON SIGN MAKER Visits 0 PT-OP-B Current Condition Start: 05/21/23 16:37 Freq: Status: Active Protocol: Document 10/14/23 09:03 [facility] (Rec: 10/14/23 09:48 [facility] [id number]) Current Condition History of Current Condition Current Complaints neck pain and left shoulder pain History of Current Condition HIstory RCR and frozen shoulder, arthritis, some other surgery left shoulder 10 + years ago. Reports chronic pain left sided neck . Went on vacation last fall fell while riding a bike; had shoulder and neck pain, shoulder pain better but neck pain persists. Patient does gentle yoga and exercise class; reports hurt her neck during exercise class , can't do jumping jacks Prior Treatments and Tests massage chiropractor x-ray: mild dynamic instagility at c3-4 level with gr 1 spondylolisthesis on flexion fiex miltilevel c/s spondylosis PT-OP-C Subjective Start: 05/21/23 16:37 Freq: Status: Active Protocol: Document 10/14/23 09:03 [facility] (Rec: 10/14/23 09:48 [facility] [id number]) OP-PT Subjective Patient Comments Patient Comments fell about a week ago walking to beach and landed on right UE, tumbled. Pain increased right shoulder but mostly recovered. PT-OP-H Neuro Start: 05/21/23 16:37 Freq: Status: Active Protocol: Document 05/22/23 08:12 SAK (Rec: 05/22/23 09:02 [facility] [id number]) Sensation Evaluation Gross Sensation Gross Sensation WNL PT-OP-J Posture/Palpation/Skin Start: 05/21/23 16:37 Freq: Status: Active Protocol: Document 05/22/23 08:12 SAK (Rec: 05/22/23 09:02 [facility] [id number]) Posture Evaluation Position Sitting Head/C-Spine Posture Forward Head T-Spine Posture Increased Kyphosis Shoulder Posture (L) Rounded,(R) Rounded Scapula Posture (L) Protracted,(R) Protracted Arm Posture (L) Internally Rotated,(R) Internally Rotated Palpation Assessment Location c/s Palpation Findings Soft Tissue Tightness, Tenderness Palpation Details left lateral c/s upper trap Palpation Findings Soft Tissue Tightness PT-OP-K Range of Motion Start: 05/21/23 16:37 Freq: Status: Active Protocol: Document 06/30/23 12:11 AB (Rec: 06/30/23 16:09 AB [id number]) Cervical Spine Range of Motion Cervical Spine Active Testing Position Seated Flexion 37 Extension 19 Rotation Left 54 Rotation Right 54 Lateral Flexion Left 12 Lateral Flexion Right 19 Comments CS measured with goniometer Visual for seated trunk rotation left 70% right 40% Shoulder Goniometric Range of Motion Shoulder Left Testing Position Standing Flexion 145 Abduction 144 External Rotation at 90 degrees 60 Abduction Internal Rotation 67 Comments IR also at 90 deg abduction * ant translation of humerus with IR moves into scaption with abduction measurement Right Testing Position 143 Extension 150 External Rotation at 90 degrees 90 Abduction Internal Rotation 90 Comments * moves into scaption with abduction IR measured at 90 deg abduction also, 8 ant translation of humerus PT-OP-L Special Tests Start: 05/21/23 16:37 Freq: Status: Active Protocol: Document 05/22/23 08:12 [facility] (Rec: 05/22/23 09:02 [facility] [id number]) Special Tests Cervical Spine Special Tests Vertebral Artery Test Results - Alar Ligament Test Results - Foraminal Compression Test Results - Traction Test Results + dec pain Shoulder Special Tests Xiong Trey Impingement Test Results + L Drop Arm Rotator Cuff Test Results - PT-OP-Q Treatments Start: 05/21/23 16:37 Freq: Status: Active Protocol: Document 10/14/23 09:03 [facility] (Rec: 10/14/23 09:48 [facility] [id number]) Therapeutic Exercises Sitting Exercises lat pull lower trap shrug Resistance 12# Reps/Minutes 10x ea Standing Exercises lateral trunk stretch Reps/Minutes 2x upright row Resistance 2# Reps/Minutes 10x counter stretch Reps/Minutes 2x10 overhead press Resistance 1# Reps/Minutes 10x bicep curls Resistance 4# Reps/Minutes 10x wall push up Standing Exercise Name push up plus Side bilateral Reps/Minutes X5 Comments Verbal and visual cues shoulder roll Standing Exercise Name giorgi and unil Reps/Minutes 5x shoulder ER Standing Exercise Name at wall Equipment Used L1 TB Reps/Minutes 10x Comments postural cues wall posture Reps/Minutes 10x Comments cues to start with core activation, feel growing taller Manual Therapy Treatment Soft Tissue Mobilization left pec post cuff, periscapular Body Location pec Mobilization Type Cross-Friction,Rolling, Sustained Pressure Intensity/Depth Moderate Body Position Sitting Scalenes at lateral clavicle, UT, levator scap, CS paraspinals, intervertebral tissue Body Location also upper thoracic parapinals /intervertebral tissue Mobilization Type Cross-Friction,Rolling, Sustained Pressure Body Position Sitting Self-Care/Home Management Treatment Education Patient Education Body Mechanics,Home Exercise Program,Joint Protection, Posture,Safety PT-OP-R Modalities Start: 05/21/23 16:37 Freq: Status: Active Protocol: Document 10/14/23 09:03 [facility] (Rec: 10/14/23 11:45 [facility] [id number]) Infrared Treatment Treatment right shoulder Body Position Sitting Continuous/Pulsed Continuous Program or Protocal chronic pain and stiffness Comments 6 locations along GH joint line PT-OP-T Assessment and Plan Start: 05/21/23 16:37 Freq: Status: Active Protocol: Document 10/14/23 09:03 [facility] (Rec: 10/14/23 09:48 [facility] [id number]) Physical Therapy Assessment Goals Four Impairment bilateral shoulder pain and dysfunction Impairment Quickdash disability index score 45% Short Term Goal (STG) Improve Quickdash score by at least 50% 10/14/23: 45% today, had been decreased until fall STG Duration 10/18/23 Correction Goal (LTG) Decrease Quickdash score by at least 75% as measure of improved functional activity tolerance LTG Duration 11/18/23 Three Impairment postural dysfunction Impairment forward head, rounded and internally rounded shoulders, forward left shoulder with weakness posterior chain musculature Short Term Goal (STG) Patient to be instructed in postural correction techniques and exercises for improved postural alignment and decreased pain 07/10/23: goal progress 09/04/23: goal met, ongoing progression STG Duration goal met Correction Goal (LTG) Patient to be independent and compliant with HEP and demonstrate improved postural alignment statically and dynamically with function 08/21/23: good compliance, mild cues for correct performance. Continue to progress HEP 10/14/23: goal progress LTG Duration 11/18/23 Two Impairment neck disability index score 28 % Short Term Goal (STG) Decrease neck disability index score to no greater than 20% as measure of improved neck function and activity tolerance 06/30/23 Neck disability index score 17.7 this session 07/10/23: 38% this am 09/04/23: dec to 34% 10/06/23: dec to 29% STG Duration 10/18/23 Lens Edger Goal (LTG) Decrease neck disability index score to no greater than 10% as measure of improved neck function and activity tolerance 08/21/23: goal progress LTG Duration 11/18/23 One Impairment left sided neck pain as high as 8/10 Short Term Goal (STG) decrease pain to no greater than 5/10 with all usual activities 07/10/23: goal met STG Duration goal met Correction Goal (LTG) decrease pain to no greater than 2/10 with all usual activiites 09/04/23: dec to 4/10 10/06/23: 4/10 at worst but at times min to no pain LTG Duration 11/18/23 Assessment Summary Assessment Patient reports PT helpful. Noted poor posture when filling out patient questionaires, PT stressed importance of postural correction for shoulder and neck health. Fall last week increased symptoms. Cold laser applied right shoulder today with good tolerance. Physical Therapy Plan Frequency and Duration Frequency of Treatment 1x/Week Duration of treatment (weeks) 8 Plan of Care Start Date 09/18/23 Plan of Care End Date 11/18/23 Next Visit Focus/Plan Next Note Type Treatment Note Next Visit Plan Continue PT for postural correction, pain management, ROM and flexibility. Manual therapy and modalities PRN. Cold laser to right shoulder for pain relief and promotion of healing. Encourage working exercises into patient's day, frequent postural correction. [ End ]
--- NOTE | 2023-10-21 16:53 | PT.OTN ---
Current Diagnoses Cervicalgia (10/21/23) Abnormal posture (10/21/23) Physical Therapy Treatment Note PT-OP-A Visit Information Start: 05/21/23 16:37 Freq: Status: Active Protocol: Document 10/21/23 09:47 SAK (Rec: 10/21/23 11:17 [facility] [id number]) Out-Patient Physical Therapy Visit Information Visit Information Visit Type Treatment Note Visit Start Time 09:47 Visit Stop Time 10:42 Visit Number 21 Number of AUTOMATION OPERATOR Visits 0 Precautions Precautions can't lay prone PT-OP-B Current Condition Start: 05/21/23 16:37 Freq: Status: Active Protocol: Document 10/21/23 09:47 SAK (Rec: 10/21/23 11:17 [facility] [id number]) Current Condition History of Current Condition Current Complaints neck pain and left shoulder pain History of Current Condition HIstory RCR and frozen shoulder, arthritis, some other surgery left shoulder 10 + years ago. Reports chronic pain left sided neck . Went on vacation last fall fell while riding a bike; had shoulder and neck pain, shoulder pain better but neck pain persists. Patient does gentle yoga and exercise class; reports hurt her neck during exercise class , can't do jumping jacks Prior Treatments and Tests massage chiropractor x-ray: mild dynamic instagility at c3-4 level with gr 1 spondylolisthesis on flexion fiex miltilevel c/s spondylosis PT-OP-C Subjective Start: 05/21/23 16:37 Freq: Status: Active Protocol: Document 10/21/23 09:47 SAK (Rec: 10/21/23 11:17 [facility] [id number]) OP-PT Subjective Patient Comments Patient Comments Thinks laser really helped. Has been very busy, so less exercises. PT-OP-H Neuro Start: 05/21/23 16:37 Freq: Status: Active Protocol: Document 05/22/23 08:12 SAK (Rec: 05/22/23 09:02 [facility] [id number]) Sensation Evaluation Gross Sensation Gross Sensation WNL PT-OP-J Posture/Palpation/Skin Start: 05/21/23 16:37 Freq: Status: Active Protocol: Document 05/22/23 08:12 SAK (Rec: 05/22/23 09:02 [facility] [id number]) Posture Evaluation Position Sitting Head/C-Spine Posture Forward Head T-Spine Posture Increased Kyphosis Shoulder Posture (L) Rounded,(R) Rounded Scapula Posture (L) Protracted,(R) Protracted Arm Posture (L) Internally Rotated,(R) Internally Rotated Palpation Assessment Location c/s Palpation Findings Soft Tissue Tightness, Tenderness Palpation Details left lateral c/s upper trap Palpation Findings Soft Tissue Tightness PT-OP-K Range of Motion Start: 05/21/23 16:37 Freq: Status: Active Protocol: Document 06/30/23 12:11 AB (Rec: 06/30/23 16:09 AB [id number]) Cervical Spine Range of Motion Cervical Spine Active Testing Position Seated Flexion 37 Extension 19 Rotation Left 54 Rotation Right 54 Lateral Flexion Left 12 Lateral Flexion Right 19 Comments CS measured with goniometer Visual for seated trunk rotation left 70% right 40% Shoulder Goniometric Range of Motion Shoulder Left Testing Position Standing Flexion 145 Abduction 144 External Rotation at 90 degrees 60 Abduction Internal Rotation 67 Comments IR also at 90 deg abduction * ant translation of humerus with IR moves into scaption with abduction measurement Right Testing Position 143 Extension 150 External Rotation at 90 degrees 90 Abduction Internal Rotation 90 Comments * moves into scaption with abduction IR measured at 90 deg abduction also, 8 ant translation of humerus PT-OP-L Special Tests Start: 05/21/23 16:37 Freq: Status: Active Protocol: Document 05/22/23 08:12 [facility] (Rec: 05/22/23 09:02 [facility] [id number]) Special Tests Cervical Spine Special Tests Vertebral Artery Test Results - Alar Ligament Test Results - Foraminal Compression Test Results - Traction Test Results + dec pain Shoulder Special Tests Xiong Trey Impingement Test Results + L Drop Arm Rotator Cuff Test Results - PT-OP-Q Treatments Start: 05/21/23 16:37 Freq: Status: Active Protocol: Document 10/21/23 09:47 [facility] (Rec: 10/21/23 11:17 [facility] [id number]) Therapeutic Exercises Supine Exercises chest press Reps/Minutes 10x Comments inc ant shoulder pain last few reps shld ER Supine Exercise Name AAROM Reps/Minutes 10x2 Comments upper arm supported on towel roll, no pain, full ROM shoulder flex Supine Exercise Name AROM Side bilateral Equipment Used wand Reps/Minutes 10x Comments inc anterior shoulder paion last few reps Sitting Exercises lat pull lower trap shrug Resistance 12# Reps/Minutes 10x ea Standing Exercises Body blade Standing Exercise Name giorgi fwd/bck, unil fwd/bck, 90/ 90 in/out Resistance small Reps/Minutes 30 sec ea wall ball roll Reps/Minutes 10x2 Manual Therapy Treatment Soft Tissue Mobilization left pec post cuff, periscapular Mobilization Type Cross-Friction,Rolling, Sustained Pressure Intensity/Depth Moderate Body Position sidelyiong Self-Care/Home Management Treatment Education Patient Education Body Mechanics,Home Exercise Program,Joint Protection, Posture,Safety PT-OP-R Modalities Start: 05/21/23 16:37 Freq: Status: Active Protocol: Document 10/21/23 09:47 [facility] (Rec: 10/21/23 11:17 [facility] [id number]) Electric Stimulation Electric Stimulation Interferential Current (IFC) Body Location right shoulder Intensity 15 Cycle Continuous Patient Position Hooklying Combined With Heat/Cold Cold Pack Infrared Treatment Treatment right shoulder Body Position Sitting Continuous/Pulsed Continuous Program or Protocal chronic pain and stiffness Comments 6 locations along GH joint line PT-OP-T Assessment and Plan Start: 05/21/23 16:37 Freq: Status: Active Protocol: Document 10/21/23 09:47 [facility] (Rec: 10/21/23 11:17 [facility] [id number]) Physical Therapy Assessment Goals Four Impairment bilateral shoulder pain and dysfunction Impairment Quickdash disability index score 45% Short Term Goal (STG) Improve Quickdash score by at least 50% 10/14/23: 45% today, had been decreased until fall STG Duration 10/18/23 Mcfp Goal (LTG) Decrease Quickdash score by at least 75% as measure of improved functional activity tolerance LTG Duration 11/18/23 Three Impairment postural dysfunction Impairment forward head, rounded and internally rounded shoulders, forward left shoulder with weakness posterior chain musculature Short Term Goal (STG) Patient to be instructed in postural correction techniques and exercises for improved postural alignment and decreased pain 07/10/23: goal progress 09/04/23: goal met, ongoing progression STG Duration goal met Mcfp Goal (LTG) Patient to be independent and compliant with HEP and demonstrate improved postural alignment statically and dynamically with function 08/21/23: good compliance, mild cues for correct performance. Continue to progress HEP 10/14/23: goal progress LTG Duration 11/18/23 Two Impairment neck disability index score 28 % Short Term Goal (STG) Decrease neck disability index score to no greater than 20% as measure of improved neck function and activity tolerance 06/30/23 Neck disability index score 17.7 this session 07/10/23: 38% this am 09/04/23: dec to 34% 10/06/23: dec to 29% STG Duration 10/18/23 Mcfp Goal (LTG) Decrease neck disability index score to no greater than 10% as measure of improved neck function and activity tolerance 08/21/23: goal progress LTG Duration 11/18/23 One Impairment left sided neck pain as high as 8/10 Short Term Goal (STG) decrease pain to no greater than 5/10 with all usual activities 07/10/23: goal met STG Duration goal met Medical Scientific Officer Goal (LTG) decrease pain to no greater than 2/10 with all usual activiites 09/04/23: dec to 4/10 10/06/23: 4/10 at worst but at times min to no pain LTG Duration 11/18/23 Assessment Summary Assessment Continue to report increased activity tolerance, dec pain overall. ROM WNL, needs most work on shoulder stab and strengthening. Trial wall ball and body blade ex today with good tolerance though difficulty coordinating with body blade. Physical Therapy Plan Frequency and Duration Frequency of Treatment 1x/Week Duration of treatment (weeks) 8 Plan of Care Start Date 09/18/23 Plan of Care End Date 11/18/23 Next Visit Focus/Plan Next Note Type Treatment Note Next Visit Plan Continue PT for postural correction, pain management, ROM and flexibility. Manual therapy and modalities PRN. Cold laser to right shoulder for pain relief and promotion of healing. [ End ]
--- NOTE | 2023-10-27 13:20 | PT.OTN ---
Current Diagnoses Cervicalgia (10/27/23) Abnormal posture (10/27/23) Physical Therapy Treatment Note PT-OP-A Visit Information Start: 05/21/23 16:37 Freq: Status: Active Protocol: Document 10/27/23 09:47 SAK (Rec: 10/27/23 10:35 [facility] [id number]) Out-Patient Physical Therapy Visit Information Visit Information Visit Type Treatment Note Visit Start Time 09:47 Visit Stop Time 10:42 Visit Number 22 Number of CANE PILER Visits 0 Precautions Precautions can't lay prone PT-OP-B Current Condition Start: 05/21/23 16:37 Freq: Status: Active Protocol: Document 10/27/23 09:47 SAK (Rec: 10/27/23 10:35 [facility] [id number]) Current Condition History of Current Condition Current Complaints neck pain and left shoulder pain History of Current Condition HIstory RCR and frozen shoulder, arthritis, some other surgery left shoulder 10 + years ago. Reports chronic pain left sided neck . Went on vacation last fall fell while riding a bike; had shoulder and neck pain, shoulder pain better but neck pain persists. Patient does gentle yoga and exercise class; reports hurt her neck during exercise class , can't do jumping jacks Prior Treatments and Tests massage chiropractor x-ray: mild dynamic instagility at c3-4 level with gr 1 spondylolisthesis on flexion fiex miltilevel c/s spondylosis PT-OP-C Subjective Start: 05/21/23 16:37 Freq: Status: Active Protocol: Document 10/27/23 09:47 SAK (Rec: 10/27/23 10:35 [facility] [id number]) OP-PT Subjective Patient Comments Patient Comments shoulder better, has a stiff neck, maybe due to hiking; has to really look down to place her feet PT-OP-H Neuro Start: 05/21/23 16:37 Freq: Status: Active Protocol: Document 05/22/23 08:12 SAK (Rec: 05/22/23 09:02 [facility] [id number]) Sensation Evaluation Gross Sensation Gross Sensation WNL PT-OP-J Posture/Palpation/Skin Start: 05/21/23 16:37 Freq: Status: Active Protocol: Document 05/22/23 08:12 SAK (Rec: 05/22/23 09:02 [facility] [id number]) Posture Evaluation Position Sitting Head/C-Spine Posture Forward Head T-Spine Posture Increased Kyphosis Shoulder Posture (L) Rounded,(R) Rounded Scapula Posture (L) Protracted,(R) Protracted Arm Posture (L) Internally Rotated,(R) Internally Rotated Palpation Assessment Location c/s Palpation Findings Soft Tissue Tightness, Tenderness Palpation Details left lateral c/s upper trap Palpation Findings Soft Tissue Tightness PT-OP-K Range of Motion Start: 05/21/23 16:37 Freq: Status: Active Protocol: Document 06/30/23 12:11 AB (Rec: 06/30/23 16:09 AB [id number]) Cervical Spine Range of Motion Cervical Spine Active Testing Position Seated Flexion 37 Extension 19 Rotation Left 54 Rotation Right 54 Lateral Flexion Left 12 Lateral Flexion Right 19 Comments CS measured with goniometer Visual for seated trunk rotation left 70% right 40% Shoulder Goniometric Range of Motion Shoulder Left Testing Position Standing Flexion 145 Abduction 144 External Rotation at 90 degrees 60 Abduction Internal Rotation 67 Comments IR also at 90 deg abduction * ant translation of humerus with IR moves into scaption with abduction measurement Right Testing Position 143 Extension 150 External Rotation at 90 degrees 90 Abduction Internal Rotation 90 Comments * moves into scaption with abduction IR measured at 90 deg abduction also, 8 ant translation of humerus PT-OP-L Special Tests Start: 05/21/23 16:37 Freq: Status: Active Protocol: Document 05/22/23 08:12 [facility] (Rec: 05/22/23 09:02 [facility] [id number]) Special Tests Cervical Spine Special Tests Vertebral Artery Test Results - Alar Ligament Test Results - Foraminal Compression Test Results - Traction Test Results + dec pain Shoulder Special Tests Xiong Trey Impingement Test Results + L Drop Arm Rotator Cuff Test Results - PT-OP-Q Treatments Start: 05/21/23 16:37 Freq: Status: Active Protocol: Document 10/27/23 09:47 SAK (Rec: 10/27/23 10:35 [facility] [id number]) Therapeutic Exercises Sidelying Exercises sidelying shoulder ER Resistance 2# Equipment Used towel roll Reps/Minutes 10x open book Sidelying Exercise Name HEP Side bilateral Reps/Minutes X5 each side Comments post manual, VC to hold 5 breats Standing Exercises 90/90 shld ER Reps/Minutes 5x Comments discontinued due to discomfort , try supine or with supported arnext session Body blade Standing Exercise Name giorgi fwd/bck, unil fwd/bck, 90/ 90 in/out Resistance small Reps/Minutes 30 sec ea wall ball roll Reps/Minutes 10x2 shoulder ER Standing Exercise Name at wall Equipment Used L2 TB Reps/Minutes 10x Comments postural cues shoulder ext Equipment Used L2 TB Reps/Minutes 10x Comments postural cues row Side bilateral Equipment Used level one band Reps/Minutes X15 Comments monitored for pain wall posture Reps/Minutes 10x Comments cues to start with core activation, feel growing taller Manual Therapy Treatment Soft Tissue Mobilization left pec post cuff, periscapular Mobilization Type Cross-Friction,Rolling, Sustained Pressure Intensity/Depth Moderate Body Position sidelyiong Scalenes at lateral clavicle, UT, levator scap, CS paraspinals, intervertebral tissue Body Location also upper thoracic parapinals /intervertebral tissue Mobilization Type Cross-Friction,Rolling, Sustained Pressure Body Position Sitting Self-Care/Home Management Treatment Education Patient Education Body Mechanics,Home Exercise Program,Joint Protection, Posture,Safety PT-OP-R Modalities Start: 05/21/23 16:37 Freq: Status: Active Protocol: Document 10/27/23 09:47 [facility] (Rec: 10/27/23 10:35 [facility] [id number]) Electric Stimulation Electric Stimulation Interferential Current (IFC) Body Location right shoulder Intensity 15 Cycle Continuous Patient Position Hooklying Combined With Heat/Cold Cold Pack Infrared Treatment Treatment right shoulder Body Position Sitting Continuous/Pulsed Continuous Program or Protocal chronic pain and stiffness Comments 6 locations along GH joint line PT-OP-T Assessment and Plan Start: 05/21/23 16:37 Freq: Status: Active Protocol: Document 10/27/23 09:47 [facility] (Rec: 10/27/23 10:35 [facility] [id number]) Physical Therapy Assessment Goals Four Impairment bilateral shoulder pain and dysfunction Impairment Quickdash disability index score 45% Short Term Goal (STG) Improve Quickdash score by at least 50% 10/14/23: 45% today, had been decreased until fall STG Duration 10/18/23 Hitcher Goal (LTG) Decrease Quickdash score by at least 75% as measure of improved functional activity tolerance LTG Duration 11/18/23 Three Impairment postural dysfunction Impairment forward head, rounded and internally rounded shoulders, forward left shoulder with weakness posterior chain musculature Short Term Goal (STG) Patient to be instructed in postural correction techniques and exercises for improved postural alignment and decreased pain 4/4/24: goal progress 09/04/23: goal met, ongoing progression STG Duration goal met Skilled Nursing Goal (LTG) Patient to be independent and compliant with HEP and demonstrate improved postural alignment statically and dynamically with function 08/21/23: good compliance, mild cues for correct performance. Continue to progress HEP 10/14/23: goal progress LTG Duration 11/18/23 Two Impairment neck disability index score 28 % Short Term Goal (STG) Decrease neck disability index score to no greater than 20% as measure of improved neck function and activity tolerance 06/30/23 Neck disability index score 17.7 this session 07/10/23: 38% this am 09/04/23: dec to 34% 10/06/23: dec to 29% STG Duration 10/18/23 Skilled Nursing Goal (LTG) Decrease neck disability index score to no greater than 10% as measure of improved neck function and activity tolerance 08/21/23: goal progress LTG Duration 11/18/23 One Impairment left sided neck pain as high as 8/10 Short Term Goal (STG) decrease pain to no greater than 5/10 with all usual activities 07/10/23: goal met STG Duration goal met Hitcher Goal (LTG) decrease pain to no greater than 2/10 with all usual activiites 09/04/23: dec to 4/10 10/06/23: 4/10 at worst but at times min to no pain LTG Duration 11/18/23 Assessment Summary Assessment decreased shoulder pain,neck stiffness attributed to looking down during challenging height for long period. Improving scapular mechanics Physical Therapy Plan Frequency and Duration Frequency of Treatment 1x/Week Duration of treatment (weeks) 8 Plan of Care Start Date 09/18/23 Plan of Care End Date 11/18/23 Next Visit Focus/Plan Next Note Type Treatment Note Next Visit Plan Continue PT for postural correction, pain management, ROM and flexibility. Manual therapy and modalities PRN. Cold laser to right shoulder for pain relief and promotion of healing. [ End ]
--- NOTE | 2023-11-03 16:32 | PT.OTN ---
Current Diagnoses Cervicalgia (11/03/23) Abnormal posture (11/03/23) Physical Therapy Treatment Note PT-OP-A Visit Information Start: 05/21/23 16:37 Freq: Status: Active Protocol: Document 11/03/23 10:29 SAK (Rec: 11/03/23 11:17 [facility] [id number]) Out-Patient Physical Therapy Visit Information Visit Information Visit Type Treatment Note Visit Start Time 10:30 Visit Stop Time 11:25 Visit Number 23 Number of GAS PUMPING STATION SUPERVISOR Visits 0 Precautions Precautions can't lay prone PT-OP-B Current Condition Start: 05/21/23 16:37 Freq: Status: Active Protocol: Document 11/03/23 10:29 SAK (Rec: 11/03/23 11:17 [facility] [id number]) Current Condition History of Current Condition Current Complaints neck pain and left shoulder pain History of Current Condition HIstory RCR and frozen shoulder, arthritis, some other surgery left shoulder 10 + years ago. Reports chronic pain left sided neck . Went on vacation last fall fell while riding a bike; had shoulder and neck pain, shoulder pain better but neck pain persists. Patient does gentle yoga and exercise class; reports hurt her neck during exercise class , can't do jumping jacks Prior Treatments and Tests massage chiropractor x-ray: mild dynamic instagility at c3-4 level with gr 1 spondylolisthesis on flexion fiex miltilevel c/s spondylosis PT-OP-C Subjective Start: 05/21/23 16:37 Freq: Status: Active Protocol: Document 11/03/23 10:29 SAK (Rec: 11/03/23 11:17 [facility] [id number]) OP-PT Subjective Patient Comments Patient Comments Neck better today, though was exacerbated by dancing. Can't lift anything overhead due to inc neck and shoulder pain PT-OP-H Neuro Start: 05/21/23 16:37 Freq: Status: Active Protocol: Document 05/22/23 08:12 SAK (Rec: 05/22/23 09:02 [facility] [id number]) Sensation Evaluation Gross Sensation Gross Sensation WNL PT-OP-J Posture/Palpation/Skin Start: 05/21/23 16:37 Freq: Status: Active Protocol: Document 05/22/23 08:12 SAK (Rec: 05/22/23 09:02 [facility] [id number]) Posture Evaluation Position Sitting Head/C-Spine Posture Forward Head T-Spine Posture Increased Kyphosis Shoulder Posture (L) Rounded,(R) Rounded Scapula Posture (L) Protracted,(R) Protracted Arm Posture (L) Internally Rotated,(R) Internally Rotated Palpation Assessment Location c/s Palpation Findings Soft Tissue Tightness, Tenderness Palpation Details left lateral c/s upper trap Palpation Findings Soft Tissue Tightness PT-OP-K Range of Motion Start: 05/21/23 16:37 Freq: Status: Active Protocol: Document 06/30/23 12:11 AB (Rec: 06/30/23 16:09 AB [id number]) Cervical Spine Range of Motion Cervical Spine Active Testing Position Seated Flexion 37 Extension 19 Rotation Left 54 Rotation Right 54 Lateral Flexion Left 12 Lateral Flexion Right 19 Comments CS measured with goniometer Visual for seated trunk rotation left 70% right 40% Shoulder Goniometric Range of Motion Shoulder Left Testing Position Standing Flexion 145 Abduction 144 External Rotation at 90 degrees 60 Abduction Internal Rotation 67 Comments IR also at 90 deg abduction * ant translation of humerus with IR moves into scaption with abduction measurement Right Testing Position 143 Extension 150 External Rotation at 90 degrees 90 Abduction Internal Rotation 90 Comments * moves into scaption with abduction IR measured at 90 deg abduction also, 8 ant translation of humerus PT-OP-L Special Tests Start: 05/21/23 16:37 Freq: Status: Active Protocol: Document 05/22/23 08:12 [facility] (Rec: 05/22/23 09:02 [facility] [id number]) Special Tests Cervical Spine Special Tests Vertebral Artery Test Results - Alar Ligament Test Results - Foraminal Compression Test Results - Traction Test Results + dec pain Shoulder Special Tests Xiong Trey Impingement Test Results + L Drop Arm Rotator Cuff Test Results - PT-OP-Q Treatments Start: 05/21/23 16:37 Freq: Status: Active Protocol: Document 11/03/23 10:29 SAK (Rec: 11/03/23 11:17 [facility] [id number]) Cardio Equipment Upper Body Ergometer (UBE) Duration (Minutes) 6 RPM 120 Seat Position 8 Height 2.5 Gym Equipment Cable Column (Body Solid) scap shrug Resistance 10 lbs lat pull Resistance 10 lbs Therapeutic Exercises Standing Exercises reverse throw Equipment Used L1 TB Reps/Minutes 10x throw Equipment Used L1 TB Reps/Minutes 10x 90/90 shld ER Equipment Used L1 TB Reps/Minutes 10x Body blade Standing Exercise Name giorgi fwd/bck, unil fwd/bck, 90/ 90 in/out, overhead unil Resistance small Reps/Minutes 30 sec ea tricep press Equipment Used 3# Reps/Minutes 10x overhead press Resistance 2# Reps/Minutes 10x upright rows Equipment Used 10x Reps/Minutes 2# bicep curls Resistance 4# Reps/Minutes 10x wall push up Side bilateral Reps/Minutes 10x Comments Verbal and visual cues shoulder shrugs Standing Exercise Name giorgi and unil Reps/Minutes 5x shoulder roll Standing Exercise Name giorgi and unil Reps/Minutes 5x shoulder ER Standing Exercise Name at wall Equipment Used L2 TB Reps/Minutes 10x Comments postural cues shoulder ext Equipment Used L2 TB Reps/Minutes 10x Comments postural cues row Side bilateral Equipment Used level one band Reps/Minutes X15 Comments monitored for pain wall posture Reps/Minutes 10x Comments cues to start with core activation, feel growing taller Manual Therapy Treatment Soft Tissue Mobilization left pec post cuff, periscapular Mobilization Type Cross-Friction,Rolling, Sustained Pressure Intensity/Depth Moderate Body Position sidelyiong Scalenes at lateral clavicle, UT, levator scap, CS paraspinals, intervertebral tissue Body Location also upper thoracic parapinals /intervertebral tissue Mobilization Type Cross-Friction,Rolling, Sustained Pressure Body Position Sitting Self-Care/Home Management Treatment Education Patient Education Body Mechanics,Home Exercise Program,Joint Protection, Posture,Safety PT-OP-R Modalities Start: 05/21/23 16:37 Freq: Status: Active Protocol: Document 11/03/23 10:29 [facility] (Rec: 11/03/23 11:17 [facility] [id number]) Electric Stimulation Electric Stimulation Interferential Current (IFC) Body Location right shoulder Intensity 15 Cycle Continuous Patient Position Hooklying Combined With Heat/Cold Cold Pack Infrared Treatment Treatment right shoulder Body Position Sitting Continuous/Pulsed Continuous Program or Protocal chronic pain and stiffness Comments 6 locations along GH joint line PT-OP-T Assessment and Plan Start: 05/21/23 16:37 Freq: Status: Active Protocol: Document 11/03/23 10:29 [facility] (Rec: 11/03/23 11:17 [facility] [id number]) Physical Therapy Assessment Goals Four Impairment bilateral shoulder pain and dysfunction Impairment Quickdash disability index score 45% Short Term Goal (STG) Improve Quickdash score by at least 50% 10/14/23: 45% today, had been decreased until fall STG Duration 10/18/23 Concrete Craftsman Goal (LTG) Decrease Quickdash score by at least 75% as measure of improved functional activity tolerance LTG Duration 11/18/23 Three Impairment postural dysfunction Impairment forward head, rounded and internally rounded shoulders, forward left shoulder with weakness posterior chain musculature Short Term Goal (STG) Patient to be instructed in postural correction techniques and exercises for improved postural alignment and decreased pain 07/10/23: goal progress 09/04/23: goal met, ongoing progression STG Duration goal met Intermediate Goal (LTG) Patient to be independent and compliant with HEP and demonstrate improved postural alignment statically and dynamically with function 08/21/23: good compliance, mild cues for correct performance. Continue to progress HEP 10/14/23: goal progress LTG Duration 11/18/23 Two Impairment neck disability index score 28 % Short Term Goal (STG) Decrease neck disability index score to no greater than 20% as measure of improved neck function and activity tolerance 06/30/23 Neck disability index score 17.7 this session 07/10/23: 38% this am 09/04/23: dec to 34% 10/06/23: dec to 29% STG Duration 10/18/23 Intermediate Goal (LTG) Decrease neck disability index score to no greater than 10% as measure of improved neck function and activity tolerance 08/21/23: goal progress LTG Duration 11/18/23 One Impairment left sided neck pain as high as 8/10 Short Term Goal (STG) decrease pain to no greater than 5/10 with all usual activities 07/10/23: goal met STG Duration goal met Intermediate Goal (LTG) decrease pain to no greater than 2/10 with all usual activiites 09/04/23: dec to 4/10 10/06/23: 4/10 at worst but at times min to no pain LTG Duration 11/18/23 Assessment Summary Assessment Able to do UBE for first time today, denied pain. Added overhead Bodyblade Physical Therapy Plan Frequency and Duration Frequency of Treatment 1x/Week Duration of treatment (weeks) 8 Plan of Care Start Date 09/18/23 Plan of Care End Date 11/18/23 Therapeutic Interventions Therapeutic Interventions Home Exercise Program,Manual Therapy,Neuromuscular Re- education,Patient/Caregiver Education,Self-Care/Home Management,Soft Tissue Mobilization,Taping, Therapeutic Activities, Therapeutic Exercises Modalities Cold Pack/Ice Massage,Electric Stimulation,Hot Packs, Infrared Therapy,Traction- Mechanical,Ultrasound Next Visit Focus/Plan Next Note Type Treatment Note Next Visit Plan Continue PT for postural correction, pain management, ROM and flexibility. Manual therapy and modalities PRN. Cold laser to right shoulder for pain relief and promotion of healing. [ End ]
--- NOTE | 2023-11-11 17:01 | PT.OTN ---
Current Diagnoses Cervicalgia (11/11/23) Abnormal posture (11/11/23) Physical Therapy Treatment Note PT-OP-A Visit Information Start: 05/21/23 16:37 Freq: Status: Active Protocol: Document 11/11/23 09:12 [facility] (Rec: 11/11/23 09:48 [facility] [id number]) Out-Patient Physical Therapy Visit Information Visit Information Visit Type Treatment Note Visit Start Time 09:05 Visit Stop Time 09:45 Visit Number 24 Number of SMALL EQUIPMENT OPERATOR Visits 0 Evaluation Information Evaluation Date 05/22/23 Precautions Precautions can't lay prone PT-OP-B Current Condition Start: 05/21/23 16:37 Freq: Status: Active Protocol: Document 11/11/23 09:12 [facility] (Rec: 11/11/23 09:48 [facility] [id number]) Current Condition History of Current Condition Current Complaints neck pain and left shoulder pain History of Current Condition HIstory RCR and frozen shoulder, arthritis, some other surgery left shoulder 10 + years ago. Reports chronic pain left sided neck . Went on vacation last fall fell while riding a bike; had shoulder and neck pain, shoulder pain better but neck pain persists. Patient does gentle yoga and exercise class; reports hurt her neck during exercise class , can't do jumping jacks Prior Treatments and Tests massage chiropractor x-ray: mild dynamic instagility at c3-4 level with gr 1 spondylolisthesis on flexion fiex miltilevel c/s spondylosis PT-OP-C Subjective Start: 05/21/23 16:37 Freq: Status: Active Protocol: Document 11/11/23 09:12 SAK (Rec: 11/11/23 09:48 [facility] [id number]) OP-PT Subjective Patient Comments Patient Comments Did ok after last session, the one that is hardest is lifting out to the side ( abduction). Tolerated last PT session well. Has been doing HEP. No new c/o. Patient Reported Progress Improving PT-OP-H Neuro Start: 05/21/23 16:37 Freq: Status: Active Protocol: Document 05/22/23 08:12 SAK (Rec: 05/22/23 09:02 [facility] [id number]) Sensation Evaluation Gross Sensation Gross Sensation WNL PT-OP-J Posture/Palpation/Skin Start: 05/21/23 16:37 Freq: Status: Active Protocol: Document 05/22/23 08:12 [facility] (Rec: 05/22/23 09:02 [facility] [id number]) Posture Evaluation Position Sitting Head/C-Spine Posture Forward Head T-Spine Posture Increased Kyphosis Shoulder Posture (L) Rounded,(R) Rounded Scapula Posture (L) Protracted,(R) Protracted Arm Posture (L) Internally Rotated,(R) Internally Rotated Palpation Assessment Location c/s Palpation Findings Soft Tissue Tightness, Tenderness Palpation Details left lateral c/s upper trap Palpation Findings Soft Tissue Tightness PT-OP-K Range of Motion Start: 05/21/23 16:37 Freq: Status: Active Protocol: Document 06/30/23 12:11 AB (Rec: 06/30/23 16:09 AB [id number]) Cervical Spine Range of Motion Cervical Spine Active Testing Position Seated Flexion 37 Extension 19 Rotation Left 54 Rotation Right 54 Lateral Flexion Left 12 Lateral Flexion Right 19 Comments CS measured with goniometer Visual for seated trunk rotation left 70% right 40% Shoulder Goniometric Range of Motion Shoulder Left Testing Position Standing Flexion 145 Abduction 144 External Rotation at 90 degrees 60 Abduction Internal Rotation 67 Comments IR also at 90 deg abduction * ant translation of humerus with IR moves into scaption with abduction measurement Right Testing Position 143 Extension 150 External Rotation at 90 degrees 90 Abduction Internal Rotation 90 Comments * moves into scaption with abduction IR measured at 90 deg abduction also, 8 ant translation of humerus PT-OP-L Special Tests Start: 05/21/23 16:37 Freq: Status: Active Protocol: Document 05/22/23 08:12 [facility] (Rec: 05/22/23 09:02 [facility] [id number]) Special Tests Cervical Spine Special Tests Vertebral Artery Test Results - Alar Ligament Test Results - Foraminal Compression Test Results - Traction Test Results + dec pain Shoulder Special Tests Xiong Trey Impingement Test Results + L Drop Arm Rotator Cuff Test Results - PT-OP-Q Treatments Start: 05/21/23 16:37 Freq: Status: Active Protocol: Document 11/11/23 09:12 SAK (Rec: 11/11/23 09:48 [facility] [id number]) Cardio Equipment Upper Body Ergometer (UBE) Duration (Minutes) 7 RPM 120 Seat Position 8 Height 2.5 Therapeutic Exercises Standing Exercises shoulder ab Resistance L1 TB Reps/Minutes 10x reverse throw Equipment Used L1 TB Reps/Minutes 10x 90/90 shld ER Equipment Used L1 TB Reps/Minutes 10x Body blade Standing Exercise Name giorgi fwd/bck, unil fwd/bck, 90/ 90 in/out, overhead unil Resistance med Reps/Minutes 30 sec ea tricep press Equipment Used 3# Reps/Minutes 10x overhead press Resistance 2# Reps/Minutes 10x upright rows Equipment Used 10x Reps/Minutes 2# bicep curls Standing Exercise Name HEP shoulder ext Equipment Used L2 TB Reps/Minutes 10x Comments postural cues row Side bilateral Equipment Used level one band Reps/Minutes X15 Comments monitored for pain Manual Therapy Treatment Soft Tissue Mobilization subscap Body Location R Mobilization Type Sustained Pressure,Other Intensity/Depth Moderate Body Position Sidelying Comments pin and stretch left pec post cuff, periscapular Mobilization Type Cross-Friction,Rolling, Sustained Pressure Intensity/Depth Moderate Body Position sidelyiong Scalenes at lateral clavicle, UT, levator scap, CS paraspinals, intervertebral tissue Body Location also upper thoracic parapinals /intervertebral tissue Mobilization Type Cross-Friction,Rolling, Sustained Pressure Body Position Sitting Self-Care/Home Management Treatment Education Patient Education Body Mechanics,Home Exercise Program,Joint Protection, Posture,Safety PT-OP-R Modalities Start: 05/21/23 16:37 Freq: Status: Active Protocol: Document 11/11/23 09:12 [facility] (Rec: 11/11/23 09:48 [facility] [id number]) Infrared Treatment Treatment right shoulder Body Position Sitting Continuous/Pulsed Continuous Program or Protocal chronic pain and stiffness Comments 6 locations along GH joint line PT-OP-T Assessment and Plan Start: 05/21/23 16:37 Freq: Status: Active Protocol: Document 11/11/23 09:12 [facility] (Rec: 11/11/23 09:48 [facility] [id number]) Physical Therapy Assessment Goals Four Impairment bilateral shoulder pain and dysfunction Impairment Quickdash disability index score 45% Short Term Goal (STG) Improve Quickdash score by at least 50% 10/14/23: 45% today, had been decreased until fall STG Duration 10/18/23 Custodial Goal (LTG) Decrease Quickdash score by at least 75% as measure of improved functional activity tolerance LTG Duration 11/18/23 Three Impairment postural dysfunction Impairment forward head, rounded and internally rounded shoulders, forward left shoulder with weakness posterior chain musculature Short Term Goal (STG) Patient to be instructed in postural correction techniques and exercises for improved postural alignment and decreased pain 07/10/23: goal progress 09/04/23: goal met, ongoing progression STG Duration goal met Motion Picture Set Grip Goal (LTG) Patient to be independent and compliant with HEP and demonstrate improved postural alignment statically and dynamically with function 08/21/23: good compliance, mild cues for correct performance. Continue to progress HEP 10/14/23: goal progress LTG Duration 11/18/23 Two Impairment neck disability index score 28 % Short Term Goal (STG) Decrease neck disability index score to no greater than 20% as measure of improved neck function and activity tolerance 06/30/23 Neck disability index score 17.7 this session 07/10/23: 38% this am 09/04/23: dec to 34% 10/06/23: dec to 29% STG Duration 10/18/23 Custodial Goal (LTG) Decrease neck disability index score to no greater than 10% as measure of improved neck function and activity tolerance 08/21/23: goal progress LTG Duration 11/18/23 One Impairment left sided neck pain as high as 8/10 Short Term Goal (STG) decrease pain to no greater than 5/10 with all usual activities 07/10/23: goal met STG Duration goal met Custodial Goal (LTG) decrease pain to no greater than 2/10 with all usual activiites 09/04/23: dec to 4/10 10/06/23: 4/10 at worst but at times min to no pain LTG Duration 11/18/23 Progress Towards Goals Progress Towards Goals Progressing Toward Goals Assessment Summary Assessment Patient able to progress to medium Body Blade with ther ex , good tolerance for UBE at 60 rpm. Laterally raising UE most difficulty/painful at this time. Good compliance to HEP. Steady progress. Didn' t feel need for ice or heat after PT today. Physical Therapy Plan Frequency and Duration Frequency of Treatment 1x/Week Duration of treatment (weeks) 8 Plan of Care Start Date 09/18/23 Plan of Care End Date 11/18/23 Therapeutic Interventions Therapeutic Interventions Home Exercise Program,Manual Therapy,Neuromuscular Re- education,Patient/Caregiver Education,Self-Care/Home Management,Soft Tissue Mobilization,Taping, Therapeutic Activities, Therapeutic Exercises Modalities Cold Pack/Ice Massage,Electric Stimulation,Hot Packs, Infrared Therapy,Traction- Mechanical,Ultrasound Next Visit Focus/Plan Next Note Type Re-Evaluation Next Visit Plan Reassess ROM, strength neck, shoulders, continue PT per POC .
--- NOTE | 2023-11-11 17:25 | PT.OTRE ---
Current Diagnoses Cervicalgia (11/11/23) Abnormal posture (11/11/23) Past Medical History (Last Reviewed 04/05/22 @ 13:29 by Emilia Thompson MA) Cataract Degenerative myopia Eczema Essential hypertension Foot pain Fractures (1974) Gastrointestinal food allergy Generalized anxiety disorder Hearing loss (1999) Hyperlipidemia Hypothyroidism (~1989) Lichen sclerosus Microscopic colitis Peritonitis (01/15/88) Retinal detachment (~2009) Shoulder pain Sleep apnea (~2003) Tinnitus Surgical History (Last Reviewed 04/05/22 @ 13:29 by Emilia Thompson MA) History of eye surgery (2011) History of gynecologic surgery (01/15/88) History of shoulder surgery (2010) Status post appendectomy (1987) Status post delivery (01/11/88) Status post ovarian cystectomy (03/31/14) Status post tonsillectomy and adenoidectomy (1955) Visit Care Team Role Provider Type Jovanna Dove, MELCHOR, UNDERWEAR CUTTER Attending Provider Non-Staff Family Provider Primary Care Provider Referring Provider Specialty: Medical Address: [address] [place] [address], [id number] Email: Physical Therapy Re-Evaluation PT-OP-A Visit Information Start: 05/21/23 16:37 Freq: Status: Active Protocol: Document 11/11/23 09:12 [facility] (Rec: 11/11/23 09:48 [facility] [id number]) Out-Patient Physical Therapy Visit Information Visit Information Visit Type Treatment Note Visit Start Time 09:05 Visit Stop Time 09:45 Visit Number 24 Number of POOL TABLE OPERATOR Visits 0 Evaluation Information Evaluation Date 05/22/23 Precautions Precautions can't lay prone PT-OP-B Current Condition Start: 05/21/23 16:37 Freq: Status: Active Protocol: Document 11/11/23 09:12 [facility] (Rec: 11/11/23 09:48 [facility] [id number]) Current Condition History of Current Condition Current Complaints neck pain and left shoulder pain History of Current Condition HIstory RCR and frozen shoulder, arthritis, some other surgery left shoulder 10 + years ago. Reports chronic pain left sided neck . Went on vacation last fall fell while riding a bike; had shoulder and neck pain, shoulder pain better but neck pain persists. Patient does gentle yoga and exercise class; reports hurt her neck during exercise class , can't do jumping jacks Prior Treatments and Tests massage chiropractor x-ray: mild dynamic instagility at c3-4 level with gr 1 spondylolisthesis on flexion fiex miltilevel c/s spondylosis PT-OP-C Subjective Start: 05/21/23 16:37 Freq: Status: Active Protocol: Document 11/11/23 09:12 [facility] (Rec: 11/11/23 09:48 [facility] [id number]) OP-PT Subjective Patient Comments Patient Comments Did ok after last session, the one that is hardest is lifting out to the side ( abduction). Tolerated last PT session well. Has been doing HEP. No new c/o. Patient Reported Progress Improving PT-OP-H Neuro Start: 05/21/23 16:37 Freq: Status: Active Protocol: Document 05/22/23 08:12 [facility] (Rec: 05/22/23 09:02 [facility] [id number]) Sensation Evaluation Gross Sensation Gross Sensation WNL PT-OP-J Posture/Palpation/Skin Start: 05/21/23 16:37 Freq: Status: Active Protocol: Document 05/22/23 08:12 [facility] (Rec: 05/22/23 09:02 [facility] [id number]) Posture Evaluation Position Sitting Head/C-Spine Posture Forward Head T-Spine Posture Increased Kyphosis Shoulder Posture (L) Rounded,(R) Rounded Scapula Posture (L) Protracted,(R) Protracted Arm Posture (L) Internally Rotated,(R) Internally Rotated Palpation Assessment Location c/s Palpation Findings Soft Tissue Tightness, Tenderness Palpation Details left lateral c/s upper trap Palpation Findings Soft Tissue Tightness PT-OP-K Range of Motion Start: 05/21/23 16:37 Freq: Status: Active Protocol: Document 06/30/23 12:11 [facility] (Rec: 06/30/23 16:09 [facility] [id number]) Cervical Spine Range of Motion Cervical Spine Active Testing Position Seated Flexion 37 Extension 19 Rotation Left 54 Rotation Right 54 Lateral Flexion Left 12 Lateral Flexion Right 19 Comments CS measured with goniometer Visual for seated trunk rotation left 70% right 40% Shoulder Goniometric Range of Motion Shoulder Measured in Degrees Left Testing Position Standing Flexion 145 Abduction 144 External Rotation at 90 degrees 60 Abduction Internal Rotation 67 Comments IR also at 90 deg abduction * ant translation of humerus with IR moves into scaption with abduction measurement Right Testing Position 143 Extension 150 External Rotation at 90 degrees 90 Abduction Internal Rotation 90 Comments * moves into scaption with abduction IR measured at 90 deg abduction also, 8 ant translation of humerus PT-OP-L Special Tests Start: 05/21/23 16:37 Freq: Status: Active Protocol: Document 05/22/23 08:12 [facility] (Rec: 05/22/23 09:02 [facility] [id number]) Special Tests Cervical Spine Special Tests Vertebral Artery Test Results - Alar Ligament Test Results - Foraminal Compression Test Results - Traction Test Results + dec pain Shoulder Special Tests Xiong Trey Impingement Test Results + L Drop Arm Rotator Cuff Test Results - PT-OP-Q Treatments Start: 05/21/23 16:37 Freq: Status: Active Protocol: Document 11/11/23 09:12 [facility] (Rec: 11/11/23 09:48 [facility] [id number]) Cardio Equipment Upper Body Ergometer (UBE) Duration (Minutes) 7 RPM 120 Seat Position 8 Height 2.5 Therapeutic Exercises Standing Exercises shoulder ab Resistance L1 TB Reps/Minutes 10x reverse throw Equipment Used L1 TB Reps/Minutes 10x 90/90 shld ER Equipment Used L1 TB Reps/Minutes 10x Body blade Standing Exercise Name giorgi fwd/bck, unil fwd/bck, 90/ 90 in/out, overhead unil Resistance med Reps/Minutes 30 sec ea tricep press Equipment Used 3# Reps/Minutes 10x overhead press Resistance 2# Reps/Minutes 10x upright rows Equipment Used 10x Reps/Minutes 2# bicep curls Standing Exercise Name HEP shoulder ext Equipment Used L2 TB Reps/Minutes 10x Comments postural cues row Side bilateral Equipment Used level one band Reps/Minutes X15 Comments monitored for pain Manual Therapy Treatment Soft Tissue Mobilization subscap Body Location R Mobilization Type Sustained Pressure,Other Intensity/Depth Moderate Body Position Sidelying Comments pin and stretch left pec post cuff, periscapular Mobilization Type Cross-Friction,Rolling, Sustained Pressure Intensity/Depth Moderate Body Position sidelyiong Scalenes at lateral clavicle, UT, levator scap, CS paraspinals, intervertebral tissue Body Location also upper thoracic parapinals /intervertebral tissue Mobilization Type Cross-Friction,Rolling, Sustained Pressure Body Position Sitting Self-Care/Home Management Treatment Education Patient Education Body Mechanics,Home Exercise Program,Joint Protection, Posture,Safety PT-OP-R Modalities Start: 05/21/23 16:37 Freq: Status: Active Protocol: Document 11/11/23 09:12 [facility] (Rec: 11/11/23 09:48 [facility] [id number]) Infrared Treatment Treatment right shoulder Body Position Sitting Continuous/Pulsed Continuous Program or Protocal chronic pain and stiffness Comments 6 locations along GH joint line PT-OP-T Assessment and Plan Start: 05/21/23 16:37 Freq: Status: Active Protocol: Document 11/11/23 09:12 [facility] (Rec: 11/11/23 09:48 [facility] [id number]) Physical Therapy Assessment Goals Four Impairment bilateral shoulder pain and dysfunction Impairment Quickdash disability index score 45% Short Term Goal (STG) Improve Quickdash score by at least 50% 10/14/23: 45% today, had been decreased until fall 11/11/23: goal met STG Duration goal met Fpc Goal (LTG) Decrease Quickdash score by at least 75% as measure of improved functional activity tolerance 11/11/23: 61%, goal progress LTG Duration 01/18/24 Three Impairment postural dysfunction Impairment forward head, rounded and internally rounded shoulders, forward left shoulder with weakness posterior chain musculature Short Term Goal (STG) Patient to be instructed in postural correction techniques and exercises for improved postural alignment and decreased pain 07/10/23: goal progress 09/04/23: goal met, ongoing progression STG Duration goal met Baby Registry Sales Consultant Goal (LTG) Patient to be independent and compliant with HEP and demonstrate improved postural alignment statically and dynamically with function 08/21/23: good compliance, mild cues for correct performance. Continue to progress HEP 10/14/23: goal progress 11/11/23 LTG Duration 01/18/24 Two Impairment neck disability index score 28 % Short Term Goal (STG) Decrease neck disability index score to no greater than 20% as measure of improved neck function and activity tolerance 06/30/23 Neck disability index score 17.7 this session 07/10/23: 38% this am 09/04/23: dec to 34% 10/06/23: dec to 29% STG Duration 10/18/23 Fpc Goal (LTG) Decrease neck disability index score to no greater than 10% as measure of improved neck function and activity tolerance 08/21/23: goal progress 11/11/23: score 15%, worst with hiking because of looking down so much especially with her eye disorder impacting her vision LTG Duration 01/18/24 One Impairment left sided neck pain as high as 8/10 Short Term Goal (STG) decrease pain to no greater than 5/10 with all usual activities 07/10/23: goal met STG Duration goal met Fpc Goal (LTG) decrease pain to no greater than 2/10 with all usual activiites 09/04/23: dec to 4/10 10/06/23: 4/10 at worst but at times min to no pain 11/11/23: 4/10 at worst, but frequency of high level of pain decreasing, most painful with hiking. LTG Duration 01/18/24 Progress Towards Goals Progress Towards Goals Progressing Toward Goals Assessment Summary Assessment Patient able to progress to medium Body Blade with ther ex , good tolerance for UBE at 60 rpm. Laterally raising UE most difficulty/painful at this time. Good compliance to HEP. Steady progress. Didn' t feel need for ice or heat after PT today but did do cold laser with good response. Patient making steady progress , recommend continued PT until she leaves on trip in December. May consider follow-up appointment once she returns, will discuss with patient. Physical Therapy Plan Frequency and Duration Frequency of Treatment 1x/Week Duration of treatment (weeks) 8 Plan of Care Start Date 09/18/23 Plan of Care End Date 11/18/23 Therapeutic Interventions Therapeutic Interventions Home Exercise Program,Manual Therapy,Neuromuscular Re- education,Patient/Caregiver Education,Self-Care/Home Management,Soft Tissue Mobilization,Taping, Therapeutic Activities, Therapeutic Exercises Modalities Cold Pack/Ice Massage,Electric Stimulation,Hot Packs, Infrared Therapy,Traction- Mechanical,Ultrasound Next Visit Focus/Plan Next Note Type Re-Evaluation Next Visit Plan Reassess ROM, strength neck, shoulders, continue PT per POC .
--- NOTE | 2023-11-11 17:25 | PT.OPPOC ---
Physical, Occupational & Speech Therapy At [facility] Current Diagnoses Cervicalgia (11/11/23) Abnormal posture (11/11/23) Visit Care Team Role Provider Type Jovanna Dove, MELCHOR, MAINTENANCE MECHANIC HELPER Attending Provider Non-Staff Family Provider Primary Care Provider Referring Provider Specialty: Medical Address: [address] [place] [address], [id number] Email: Plan Of Care PT-OP-B Current Condition Start: 05/21/23 16:37 Freq: Status: Active Protocol: Document 11/11/23 09:12 [facility] (Rec: 11/11/23 09:48 [facility] [id number]) Current Condition History of Current Condition Current Complaints neck pain and left shoulder pain History of Current Condition HIstory RCR and frozen shoulder, arthritis, some other surgery left shoulder 10 + years ago. Reports chronic pain left sided neck . Went on vacation last fall fell while riding a bike; had shoulder and neck pain, shoulder pain better but neck pain persists. Patient does gentle yoga and exercise class; reports hurt her neck during exercise class , can't do jumping jacks Prior Treatments and Tests massage chiropractor x-ray: mild dynamic instagility at c3-4 level with gr 1 spondylolisthesis on flexion fiex miltilevel c/s spondylosis PT-OP-T Assessment and Plan Start: 05/21/23 16:37 Freq: Status: Active Protocol: Document 11/11/23 09:12 [facility] (Rec: 11/11/23 09:48 [facility] [id number]) Physical Therapy Assessment Goals Four Impairment bilateral shoulder pain and dysfunction Impairment Quickdash disability index score 45% Short Term Goal (STG) Improve Quickdash score by at least 50% 10/14/23: 45% today, had been decreased until fall 11/11/23: goal met STG Duration goal met Production Ski Repairer Goal (LTG) Decrease Quickdash score by at least 75% as measure of improved functional activity tolerance 11/11/23: 61%, goal progress LTG Duration 01/18/24 Three Impairment postural dysfunction Impairment forward head, rounded and internally rounded shoulders, forward left shoulder with weakness posterior chain musculature Short Term Goal (STG) Patient to be instructed in postural correction techniques and exercises for improved postural alignment and decreased pain 07/10/23: goal progress 09/04/23: goal met, ongoing progression STG Duration goal met Senior Care Goal (LTG) Patient to be independent and compliant with HEP and demonstrate improved postural alignment statically and dynamically with function 08/21/23: good compliance, mild cues for correct performance. Continue to progress HEP 10/14/23: goal progress 11/11/23 LTG Duration 01/18/24 Two Impairment neck disability index score 28 % Short Term Goal (STG) Decrease neck disability index score to no greater than 20% as measure of improved neck function and activity tolerance 06/30/23 Neck disability index score 17.7 this session 07/10/23: 38% this am 09/04/23: dec to 34% 10/06/23: dec to 29% STG Duration 10/18/23 Production Ski Repairer Goal (LTG) Decrease neck disability index score to no greater than 10% as measure of improved neck function and activity tolerance 08/21/23: goal progress 11/11/23: score 15%, worst with hiking because of looking down so much especially with her eye disorder impacting her vision LTG Duration 01/18/24 One Impairment left sided neck pain as high as 8/10 Short Term Goal (STG) decrease pain to no greater than 5/10 with all usual activities 07/10/23: goal met STG Duration goal met Senior Care Goal (LTG) decrease pain to no greater than 2/10 with all usual activiites 09/04/23: dec to 4/10 10/06/23: 4/10 at worst but at times min to no pain 11/11/23: 4/10 at worst, but frequency of high level of pain decreasing, most painful with hiking. LTG Duration 01/18/24 Progress Towards Goals Progress Towards Goals Progressing Toward Goals Assessment Summary Assessment Patient able to progress to medium Body Blade with ther ex , good tolerance for UBE at 60 rpm. Laterally raising UE most difficulty/painful at this time. Good compliance to HEP. Steady progress. Didn' t feel need for ice or heat after PT today but did do cold laser with good response. Patient making steady progress , recommend continued PT until she leaves on trip in December. May consider follow-up appointment once she returns, will discuss with patient. Physical Therapy Plan Frequency and Duration Frequency of Treatment 1x/Week Duration of treatment (weeks) 8 Plan of Care Start Date 09/18/23 Plan of Care End Date 11/18/23 Therapeutic Interventions Therapeutic Interventions Home Exercise Program,Manual Therapy,Neuromuscular Re- education,Patient/Caregiver Education,Self-Care/Home Management,Soft Tissue Mobilization,Taping, Therapeutic Activities, Therapeutic Exercises Modalities Cold Pack/Ice Massage,Electric Stimulation,Hot Packs, Infrared Therapy,Traction- Mechanical,Ultrasound Next Visit Focus/Plan Next Note Type Re-Evaluation Next Visit Plan Reassess ROM, strength neck, shoulders, continue PT per POC . Plan of Care Dates Plan of Care Start Date 09/18/23 Plan of Care End Date 11/18/23 Electronically Signed by: Ling Coronel, PT 11/11/23 7194 If you are in agreement with this Plan of Care, please return a signed and dated copy. I have reviewed this Plan of Care and certify that the skilled therapy services above are required to meet the patient?s needs. Physician Signature Date Printed Name and Credentials Clinical Instructor Signature Printed Name and Credentials
--- NOTE | 2023-11-19 16:33 | PT.OTN ---
Current Diagnoses Cervicalgia (11/19/23) Abnormal posture (11/19/23) Physical Therapy Treatment Note PT-OP-A Visit Information Start: 05/21/23 16:37 Freq: Status: Active Protocol: Document 11/19/23 14:34 AB (Rec: 11/19/23 16:33 AB [id number]) Out-Patient Physical Therapy Visit Information Visit Information Visit Type Treatment Note Visit Start Time 14:34 Visit Stop Time 15:19 Visit Number 25 Number of SENIOR GIS ANALYST Visits 1 PT-OP-B Current Condition Start: 05/21/23 16:37 Freq: Status: Active Protocol: Document 11/11/23 09:12 SAK (Rec: 11/11/23 09:48 SAK [id number]) Current Condition History of Current Condition Current Complaints neck pain and left shoulder pain History of Current Condition HIstory RCR and frozen shoulder, arthritis, some other surgery left shoulder 10 + years ago. Reports chronic pain left sided neck . Went on vacation last fall fell while riding a bike; had shoulder and neck pain, shoulder pain better but neck pain persists. Patient does gentle yoga and exercise class; reports hurt her neck during exercise class , can't do jumping jacks Prior Treatments and Tests massage chiropractor x-ray: mild dynamic instagility at c3-4 level with gr 1 spondylolisthesis on flexion fiex miltilevel c/s spondylosis PT-OP-C Subjective Start: 05/21/23 16:37 Freq: Status: Active Protocol: Document 11/19/23 14:34 AB (Rec: 11/19/23 16:33 AB [id number]) OP-PT Subjective Patient Comments Patient Comments Patient reports lazer treatment helps her shoulder. Patient reports she has been pretty good, has hand more neck pain PT-OP-H Neuro Start: 05/21/23 16:37 Freq: Status: Active Protocol: Document 05/22/23 08:12 SAK (Rec: 05/22/23 09:02 SAK [id number]) Sensation Evaluation Gross Sensation Gross Sensation WNL PT-OP-J Posture/Palpation/Skin Start: 05/21/23 16:37 Freq: Status: Active Protocol: Document 05/22/23 08:12 SAK (Rec: 05/22/23 09:02 SAK [id number]) Posture Evaluation Position Sitting Head/C-Spine Posture Forward Head T-Spine Posture Increased Kyphosis Shoulder Posture (L) Rounded,(R) Rounded Scapula Posture (L) Protracted,(R) Protracted Arm Posture (L) Internally Rotated,(R) Internally Rotated Palpation Assessment Location c/s Palpation Findings Soft Tissue Tightness, Tenderness Palpation Details left lateral c/s upper trap Palpation Findings Soft Tissue Tightness PT-OP-K Range of Motion Start: 05/21/23 16:37 Freq: Status: Active Protocol: Document 06/30/23 12:11 AB (Rec: 06/30/23 16:09 AB [id number]) Cervical Spine Range of Motion Cervical Spine Active Testing Position Seated Flexion 37 Extension 19 Rotation Left 54 Rotation Right 54 Lateral Flexion Left 12 Lateral Flexion Right 19 Comments CS measured with goniometer Visual for seated trunk rotation left 70% right 40% Shoulder Goniometric Range of Motion Shoulder Left Testing Position Standing Flexion 145 Abduction 144 External Rotation at 90 degrees 60 Abduction Internal Rotation 67 Comments IR also at 90 deg abduction * ant translation of humerus with IR moves into scaption with abduction measurement Right Testing Position 143 Extension 150 External Rotation at 90 degrees 90 Abduction Internal Rotation 90 Comments * moves into scaption with abduction IR measured at 90 deg abduction also, 8 ant translation of humerus PT-OP-L Special Tests Start: 05/21/23 16:37 Freq: Status: Active Protocol: Document 05/22/23 08:12 SAK (Rec: 05/22/23 09:02 [facility] [id number]) Special Tests Cervical Spine Special Tests Vertebral Artery Test Results - Alar Ligament Test Results - Foraminal Compression Test Results - Traction Test Results + dec pain Shoulder Special Tests Xiong Trey Impingement Test Results + L Drop Arm Rotator Cuff Test Results - PT-OP-Q Treatments Start: 05/21/23 16:37 Freq: Status: Active Protocol: Document 11/19/23 14:34 AB (Rec: 11/19/23 16:33 AB [id number]) Therapeutic Exercises Supine Exercises shoulder flex Supine Exercise Name AROM Side right Reps/Minutes X5 CS rotation AROM Supine Exercise Name occipital float Reps/Minutes 2 minutes Comments Vc to perform slowly in pain free range Sidelying Exercises shoulder ab Reps/Minutes X12 Manual Therapy Treatment Consent Patient gave verbal consent for manual Yes treatment Soft Tissue Mobilization left pec post cuff, periscapular Body Location pec only Mobilization Type Cross-Friction,Rolling, Sustained Pressure Intensity/Depth Moderate Body Position sidelyiong Scalenes at lateral clavicle, UT, levator scap, CS paraspinals, intervertebral tissue Mobilization Type Cross-Friction,Rolling, Sustained Pressure Body Position Sitting Joint Mobilizations left GH Joint bilateral GH Direction post, inf Grade II Body Position Hooklying scapular mobilization left shoulder Joint bilaterally Direction depression and adduction Grade III Body Position Sidelying Reps/Duration X10 left first rib Joint 1st rib, AC and SC Direction inf Grade III PT-OP-R Modalities Start: 05/21/23 16:37 Freq: Status: Active Protocol: Document 11/19/23 14:34 AB (Rec: 11/19/23 16:33 AB [id number]) Infrared Treatment Treatment right shoulder Body Position Sitting Continuous/Pulsed Continuous Program or Protocal chronic pain and stiffness Comments 6 locations along GH joint line PT-OP-T Assessment and Plan Start: 05/21/23 16:37 Freq: Status: Active Protocol: Document 11/19/23 14:34 AB (Rec: 11/19/23 16:33 AB [id number]) Physical Therapy Assessment Goals Four Impairment bilateral shoulder pain and dysfunction Impairment Quickdash disability index score 45% Short Term Goal (STG) Improve Quickdash score by at least 50% 10/14/23: 45% today, had been decreased until fall 11/11/23: goal met STG Duration goal met Commercial Installer Goal (LTG) Decrease Quickdash score by at least 75% as measure of improved functional activity tolerance 11/11/23: 61%, goal progress LTG Duration 01/18/24 Three Impairment postural dysfunction Impairment forward head, rounded and internally rounded shoulders, forward left shoulder with weakness posterior chain musculature Short Term Goal (STG) Patient to be instructed in postural correction techniques and exercises for improved postural alignment and decreased pain 07/10/23: goal progress 09/04/23: goal met, ongoing progression STG Duration goal met Commercial Installer Goal (LTG) Patient to be independent and compliant with HEP and demonstrate improved postural alignment statically and dynamically with function 08/21/23: good compliance, mild cues for correct performance. Continue to progress HEP 10/14/23: goal progress 11/11/23 LTG Duration 01/18/24 Two Impairment neck disability index score 28 % Short Term Goal (STG) Decrease neck disability index score to no greater than 20% as measure of improved neck function and activity tolerance 06/30/23 Neck disability index score 17.7 this session 07/10/23: 38% this am 09/04/23: dec to 34% 10/06/23: dec to 29% STG Duration 10/18/23 Commercial Installer Goal (LTG) Decrease neck disability index score to no greater than 10% as measure of improved neck function and activity tolerance 08/21/23: goal progress 11/11/23: score 15%, worst with hiking because of looking down so much especially with her eye disorder impacting her vision LTG Duration 01/18/24 One Impairment left sided neck pain as high as 8/10 Short Term Goal (STG) decrease pain to no greater than 5/10 with all usual activities 07/10/23: goal met STG Duration goal met [facility] Goal (LTG) decrease pain to no greater than 2/10 with all usual activiites 09/04/23: dec to 4/10 10/06/23: 4/10 at worst but at times min to no pain 11/11/23: 4/10 at worst, but frequency of high level of pain decreasing, most painful with hiking. LTG Duration 01/18/24 Assessment Summary Assessment Visible increase in AROM right shoulder flexion end of session, patient reports the shoulder feels tight end ROM Physical Therapy Plan Frequency and Duration Frequency of Treatment 1x/Week Duration of treatment (weeks) 8 Plan of Care Start Date 09/18/23 Plan of Care End Date 11/18/23 Next Visit Focus/Plan Next Note Type Re-Evaluation Next Visit Plan Reassess ROM, strength neck, shoulders, continue PT per POC .
--- NOTE | 2023-11-20 08:04 | PT.OPPOC ---
Physical, Occupational & Speech Therapy At [facility] Current Diagnoses Cervicalgia (11/19/23) Abnormal posture (11/19/23) Visit Care Team Role Provider Type Jovanna Dove, MELCHOR, SPIRAL TUBE WINDER Attending Provider Non-Staff Family Provider Primary Care Provider Referring Provider Specialty: Medical Address: [address] [place] [address], [id number] Email: Plan Of Care PT-OP-B Current Condition Start: 05/21/23 16:37 Freq: Status: Active Protocol: Document 11/11/23 09:12 [facility] (Rec: 11/11/23 09:48 [facility] [id number]) Current Condition History of Current Condition Current Complaints neck pain and left shoulder pain History of Current Condition HIstory RCR and frozen shoulder, arthritis, some other surgery left shoulder 10 + years ago. Reports chronic pain left sided neck . Went on vacation last fall fell while riding a bike; had shoulder and neck pain, shoulder pain better but neck pain persists. Patient does gentle yoga and exercise class; reports hurt her neck during exercise class , can't do jumping jacks Prior Treatments and Tests massage chiropractor x-ray: mild dynamic instagility at c3-4 level with gr 1 spondylolisthesis on flexion fiex miltilevel c/s spondylosis PT-OP-T Assessment and Plan Start: 05/21/23 16:37 Freq: Status: Active Protocol: Document 11/20/23 09:12 [facility] (Rec: 11/11/23 09:48 [facility] [id number]) Physical Therapy Assessment Goals Four Impairment bilateral shoulder pain and dysfunction Impairment Quickdash disability index score 45% Short Term Goal (STG) Improve Quickdash score by at least 50% 10/14/23: 45% today, had been decreased until fall 11/11/23: goal met STG Duration goal met Spanish Tutor Goal (LTG) Decrease Quickdash score by at least 75% as measure of improved functional activity tolerance 11/11/23: 61%, goal progress LTG Duration 01/18/24 Three Impairment postural dysfunction Impairment forward head, rounded and internally rounded shoulders, forward left shoulder with weakness posterior chain musculature Short Term Goal (STG) Patient to be instructed in postural correction techniques and exercises for improved postural alignment and decreased pain 07/10/23: goal progress 09/04/23: goal met, ongoing progression STG Duration goal met [facility] Goal (LTG) Patient to be independent and compliant with HEP and demonstrate improved postural alignment statically and dynamically with function 08/21/23: good compliance, mild cues for correct performance. Continue to progress HEP 10/14/23: goal progress 11/11/23 LTG Duration 01/18/24 Two Impairment neck disability index score 28 % Short Term Goal (STG) Decrease neck disability index score to no greater than 20% as measure of improved neck function and activity tolerance 06/30/23 Neck disability index score 17.7 this session 07/10/23: 38% this am 09/04/23: dec to 34% 10/06/23: dec to 29% STG Duration 10/18/23 Spanish Tutor Goal (LTG) Decrease neck disability index score to no greater than 10% as measure of improved neck function and activity tolerance 08/21/23: goal progress 11/11/23: score 15%, worst with hiking because of looking down so much especially with her eye disorder impacting her vision LTG Duration 01/18/24 One Impairment left sided neck pain as high as 8/10 Short Term Goal (STG) decrease pain to no greater than 5/10 with all usual activities 07/10/23: goal met STG Duration goal met [facility] Goal (LTG) decrease pain to no greater than 2/10 with all usual activiites 09/04/23: dec to 4/10 10/06/23: 4/10 at worst but at times min to no pain 11/11/23: 4/10 at worst, but frequency of high level of pain decreasing, most painful with hiking. LTG Duration 01/18/24 Progress Towards Goals Progress Towards Goals Progressing Toward Goals Assessment Summary Assessment Patient able to progress to medium Body Blade with ther ex , good tolerance for UBE at 60 rpm. Laterally raising UE most difficulty/painful at this time. Good compliance to HEP. Steady progress. Didn' t feel need for ice or heat after PT today but did do cold laser with good response. Patient making steady progress , recommend continued PT until she leaves on trip in December. May consider follow-up appointment once she returns, will discuss with patient. Physical Therapy Plan Frequency and Duration Frequency of Treatment 1x/Week Duration of treatment (weeks) 8 Plan of Care Start Date 11/11/23 Plan of Care End Date 01/11/24 Therapeutic Interventions Therapeutic Interventions Home Exercise Program,Manual Therapy,Neuromuscular Re- education,Patient/Caregiver Education,Self-Care/Home Management,Soft Tissue Mobilization,Taping, Therapeutic Activities, Therapeutic Exercises Modalities Cold Pack/Ice Massage,Electric Stimulation,Hot Packs, Infrared Therapy,Traction- Mechanical,Ultrasound Next Visit Focus/Plan Next Note Type Re-Evaluation Next Visit Plan Reassess ROM, strength neck, shoulders, continue PT per POC . Plan of Care Dates Plan of Care Start Date 11/11/23 Plan of Care End Date 01/11/24 Electronically Signed by: Ling Coronel, PT 11/23/23 0804 If you are in agreement with this Plan of Care, please return a signed and dated copy. I have reviewed this Plan of Care and certify that the skilled therapy services above are required to meet the patient?s needs. Physician Signature Date Printed Name and Credentials Clinical Instructor Signature Printed Name and Credentials
--- NOTE | 2023-11-24 12:12 | PT.OTN ---
Current Diagnoses Cervicalgia (11/24/23) Abnormal posture (11/24/23) Physical Therapy Treatment Note PT-OP-A Visit Information Start: 05/21/23 16:37 Freq: Status: Active Protocol: Document 11/24/23 11:17 SAK (Rec: 11/24/23 12:12 [facility] [id number]) Out-Patient Physical Therapy Visit Information Visit Information Visit Type Treatment Note Visit Start Time 11:17 Visit Stop Time 12:00 Visit Number 26 Number of PERSONAL BANKING ASSISTANT Visits 0 Evaluation Information Evaluation Date 05/22/23 Precautions Precautions can't lay prone PT-OP-B Current Condition Start: 05/21/23 16:37 Freq: Status: Active Protocol: Document 11/11/23 09:12 SAK (Rec: 11/11/23 09:48 [facility] [id number]) Current Condition History of Current Condition Current Complaints neck pain and left shoulder pain History of Current Condition HIstory RCR and frozen shoulder, arthritis, some other surgery left shoulder 10 + years ago. Reports chronic pain left sided neck . Went on vacation last fall fell while riding a bike; had shoulder and neck pain, shoulder pain better but neck pain persists. Patient does gentle yoga and exercise class; reports hurt her neck during exercise class , can't do jumping jacks Prior Treatments and Tests massage chiropractor x-ray: mild dynamic instagility at c3-4 level with gr 1 spondylolisthesis on flexion fiex miltilevel c/s spondylosis PT-OP-C Subjective Start: 05/21/23 16:37 Freq: Status: Active Protocol: Document 11/24/23 11:17 SAK (Rec: 11/24/23 12:12 [facility] [id number]) OP-PT Subjective Patient Comments Patient Comments Feeling pretty good. Has increased to 5# with bicep curl and tricep press. Stiff in AM. Tried to lift 5# overhead and was too much. Can't lift her bike onto rack. PT-OP-H Neuro Start: 05/21/23 16:37 Freq: Status: Active Protocol: Document 05/22/23 08:12 SAK (Rec: 05/22/23 09:02 [facility] [id number]) Sensation Evaluation Gross Sensation Gross Sensation WNL PT-OP-J Posture/Palpation/Skin Start: 05/21/23 16:37 Freq: Status: Active Protocol: Document 05/22/23 08:12 [facility] (Rec: 05/22/23 09:02 [facility] [id number]) Posture Evaluation Position Sitting Head/C-Spine Posture Forward Head T-Spine Posture Increased Kyphosis Shoulder Posture (L) Rounded,(R) Rounded Scapula Posture (L) Protracted,(R) Protracted Arm Posture (L) Internally Rotated,(R) Internally Rotated Palpation Assessment Location c/s Palpation Findings Soft Tissue Tightness, Tenderness Palpation Details left lateral c/s upper trap Palpation Findings Soft Tissue Tightness PT-OP-K Range of Motion Start: 05/21/23 16:37 Freq: Status: Active Protocol: Document 06/30/23 12:11 AB (Rec: 06/30/23 16:09 AB [id number]) Cervical Spine Range of Motion Cervical Spine Active Testing Position Seated Flexion 37 Extension 19 Rotation Left 54 Rotation Right 54 Lateral Flexion Left 12 Lateral Flexion Right 19 Comments CS measured with goniometer Visual for seated trunk rotation left 70% right 40% Shoulder Goniometric Range of Motion Shoulder Left Testing Position Standing Flexion 145 Abduction 144 External Rotation at 90 degrees 60 Abduction Internal Rotation 67 Comments IR also at 90 deg abduction * ant translation of humerus with IR moves into scaption with abduction measurement Right Testing Position 143 Extension 150 External Rotation at 90 degrees 90 Abduction Internal Rotation 90 Comments * moves into scaption with abduction IR measured at 90 deg abduction also, 8 ant translation of humerus PT-OP-L Special Tests Start: 05/21/23 16:37 Freq: Status: Active Protocol: Document 05/22/23 08:12 [facility] (Rec: 05/22/23 09:02 [facility] [id number]) Special Tests Cervical Spine Special Tests Vertebral Artery Test Results - Alar Ligament Test Results - Foraminal Compression Test Results - Traction Test Results + dec pain Shoulder Special Tests Xiong Trey Impingement Test Results + L Drop Arm Rotator Cuff Test Results - PT-OP-Q Treatments Start: 05/21/23 16:37 Freq: Status: Active Protocol: Document 11/24/23 11:17 SAK (Rec: 11/24/23 12:12 [facility] [id number]) Cardio Equipment Upper Body Ergometer (UBE) Duration (Minutes) 7 RPM 120 Seat Position 8 Height 2.5 Therapeutic Exercises Sidelying Exercises shoulder ab Reps/Minutes X12 open book Sidelying Exercise Name HEP Side bilateral Reps/Minutes X5 each side Comments post manual, VC to hold 5 breats Sitting Exercises overhead press Resistance 3# Reps/Minutes 10x pulleys Sitting Exercise Name flexion, scaption Comments cues for pain-free ROM, end range stretch, correct set up for home Standing Exercises reverse throw Equipment Used L1 TB Reps/Minutes 10x throw Equipment Used L1 TB Reps/Minutes 10x Body blade Standing Exercise Name giorgi fwd/bck, unil fwd/bck, 90/ 90 in/out, overhead unil Resistance med Reps/Minutes 30 sec ea upright rows Equipment Used 10x Reps/Minutes 2# wall push up Side bilateral Reps/Minutes 10x Comments Verbal and visual cues shoulder roll Standing Exercise Name giorgi and unil Reps/Minutes 5x Manual Therapy Treatment Consent Patient gave verbal consent for manual Yes treatment Soft Tissue Mobilization left pec post cuff, periscapular Mobilization Type Cross-Friction,Rolling, Sustained Pressure Intensity/Depth Moderate Body Position sidelyiong UT, c/s Mobilization Type Cross-Friction,Sustained Pressure Intensity/Depth Moderate Body Position Supine Comments also long head biceps cross friction with ed patient Scalenes at lateral clavicle, UT, levator scap, CS paraspinals, intervertebral tissue Mobilization Type Cross-Friction,Rolling, Sustained Pressure Body Position Sitting PT-OP-R Modalities Start: 05/21/23 16:37 Freq: Status: Active Protocol: Document 11/24/23 11:17 [facility] (Rec: 11/24/23 12:12 [facility] [id number]) Infrared Treatment Treatment right shoulder Body Position Sitting Continuous/Pulsed Continuous Program or Protocal chronic pain and stiffness Comments 6 locations along GH joint line PT-OP-T Assessment and Plan Start: 05/21/23 16:37 Freq: Status: Active Protocol: Document 11/24/23 11:17 [facility] (Rec: 11/24/23 12:12 [facility] [id number]) Physical Therapy Assessment Goals Four Impairment bilateral shoulder pain and dysfunction Impairment Quickdash disability index score 45% Short Term Goal (STG) Improve Quickdash score by at least 50% 10/14/23: 45% today, had been decreased until fall 11/11/23: goal met STG Duration goal met Retirement Goal (LTG) Decrease Quickdash score by at least 75% as measure of improved functional activity tolerance 11/11/23: 61%, goal progress LTG Duration 01/18/24 Three Impairment postural dysfunction Impairment forward head, rounded and internally rounded shoulders, forward left shoulder with weakness posterior chain musculature Short Term Goal (STG) Patient to be instructed in postural correction techniques and exercises for improved postural alignment and decreased pain 07/10/23: goal progress 09/04/23: goal met, ongoing progression STG Duration goal met Vp Ancillary Goal (LTG) Patient to be independent and compliant with HEP and demonstrate improved postural alignment statically and dynamically with function 08/21/23: good compliance, mild cues for correct performance. Continue to progress HEP 10/14/23: goal progress 11/11/23 LTG Duration 01/18/24 Two Impairment neck disability index score 28 % Short Term Goal (STG) Decrease neck disability index score to no greater than 20% as measure of improved neck function and activity tolerance 06/30/23 Neck disability index score 17.7 this session 07/10/23: 38% this am 09/04/23: dec to 34% 10/06/23: dec to 29% STG Duration 10/18/23 Vp Ancillary Goal (LTG) Decrease neck disability index score to no greater than 10% as measure of improved neck function and activity tolerance 08/21/23: goal progress 11/11/23: score 15%, worst with hiking because of looking down so much especially with her eye disorder impacting her vision LTG Duration 01/18/24 One Impairment left sided neck pain as high as 8/10 Short Term Goal (STG) decrease pain to no greater than 5/10 with all usual activities 07/10/23: goal met STG Duration goal met Vp Ancillary Goal (LTG) decrease pain to no greater than 2/10 with all usual activiites 09/04/23: dec to 4/10 10/06/23: 4/10 at worst but at times min to no pain 11/11/23: 4/10 at worst, but frequency of high level of pain decreasing, most painful with hiking. LTG Duration 01/18/24 Progress Towards Goals Progress Towards Goals Progressing Toward Goals Assessment Summary Assessment Progressed to use of UBE to start treatment, inc to 3# for overhead press. Good progress. AM stiffness worst. Good compliance to HEP. Physical Therapy Plan Frequency and Duration Frequency of Treatment 1x/Week Duration of treatment (weeks) 8 Plan of Care Start Date 11/11/23 Plan of Care End Date 01/11/24 Therapeutic Interventions Therapeutic Interventions Home Exercise Program,Manual Therapy,Neuromuscular Re- education,Patient/Caregiver Education,Self-Care/Home Management,Soft Tissue Mobilization,Taping, Therapeutic Activities, Therapeutic Exercises Modalities Cold Pack/Ice Massage,Electric Stimulation,Hot Packs, Infrared Therapy,Traction- Mechanical,Ultrasound Next Visit Focus/Plan Next Note Type Treatment Note Next Visit Plan 1 further PT treatment prior to her vacation to [facility]. May want to consider follow up when she returns.
--- NOTE | 2023-12-01 12:10 | PT.OTN ---
Current Diagnoses Cervicalgia (12/01/23) Abnormal posture (12/01/23) Physical Therapy Treatment Note PT-OP-A Visit Information Start: 05/21/23 16:37 Freq: Status: Active Protocol: Document 12/01/23 11:15 SAK (Rec: 12/01/23 11:28 [facility] [id number]) Out-Patient Physical Therapy Visit Information Visit Information Visit Type Treatment Note Visit Start Time 11:15 Visit Stop Time 12:00 Visit Number 27 Number of SUPERVISOR CALIBRATION Visits 0 Evaluation Information Evaluation Date 05/22/23 Precautions Precautions can't lay prone PT-OP-B Current Condition Start: 05/21/23 16:37 Freq: Status: Active Protocol: Document 11/11/23 09:12 SAK (Rec: 11/11/23 09:48 [facility] [id number]) Current Condition History of Current Condition Current Complaints neck pain and left shoulder pain History of Current Condition HIstory RCR and frozen shoulder, arthritis, some other surgery left shoulder 10 + years ago. Reports chronic pain left sided neck . Went on vacation last fall fell while riding a bike; had shoulder and neck pain, shoulder pain better but neck pain persists. Patient does gentle yoga and exercise class; reports hurt her neck during exercise class , can't do jumping jacks Prior Treatments and Tests massage chiropractor x-ray: mild dynamic instagility at c3-4 level with gr 1 spondylolisthesis on flexion fiex miltilevel c/s spondylosis PT-OP-C Subjective Start: 05/21/23 16:37 Freq: Status: Active Protocol: Document 12/01/23 11:15 [facility] (Rec: 12/01/23 11:28 [facility] [id number]) OP-PT Subjective Patient Comments Patient Comments Neck most sore today after hiking yesterday, looking down , left side greater than right . PT-OP-H Neuro Start: 05/21/23 16:37 Freq: Status: Active Protocol: Document 05/22/23 08:12 SAK (Rec: 05/22/23 09:02 [facility] [id number]) Sensation Evaluation Gross Sensation Gross Sensation WNL PT-OP-J Posture/Palpation/Skin Start: 05/21/23 16:37 Freq: Status: Active Protocol: Document 05/22/23 08:12 SAK (Rec: 05/22/23 09:02 [facility] [id number]) Posture Evaluation Position Sitting Head/C-Spine Posture Forward Head T-Spine Posture Increased Kyphosis Shoulder Posture (L) Rounded,(R) Rounded Scapula Posture (L) Protracted,(R) Protracted Arm Posture (L) Internally Rotated,(R) Internally Rotated Palpation Assessment Location c/s Palpation Findings Soft Tissue Tightness, Tenderness Palpation Details left lateral c/s upper trap Palpation Findings Soft Tissue Tightness PT-OP-K Range of Motion Start: 05/21/23 16:37 Freq: Status: Active Protocol: Document 06/30/23 12:11 AB (Rec: 06/30/23 16:09 AB [id number]) Cervical Spine Range of Motion Cervical Spine Active Testing Position Seated Flexion 37 Extension 19 Rotation Left 54 Rotation Right 54 Lateral Flexion Left 12 Lateral Flexion Right 19 Comments CS measured with goniometer Visual for seated trunk rotation left 70% right 40% Shoulder Goniometric Range of Motion Shoulder Left Testing Position Standing Flexion 145 Abduction 144 External Rotation at 90 degrees 60 Abduction Internal Rotation 67 Comments IR also at 90 deg abduction * ant translation of humerus with IR moves into scaption with abduction measurement Right Testing Position 143 Extension 150 External Rotation at 90 degrees 90 Abduction Internal Rotation 90 Comments * moves into scaption with abduction IR measured at 90 deg abduction also, 8 ant translation of humerus PT-OP-L Special Tests Start: 05/21/23 16:37 Freq: Status: Active Protocol: Document 05/22/23 08:12 [facility] (Rec: 05/22/23 09:02 [facility] [id number]) Special Tests Cervical Spine Special Tests Vertebral Artery Test Results - Alar Ligament Test Results - Foraminal Compression Test Results - Traction Test Results + dec pain Shoulder Special Tests Xiong Trey Impingement Test Results + L Drop Arm Rotator Cuff Test Results - PT-OP-Q Treatments Start: 05/21/23 16:37 Freq: Status: Active Protocol: Document 12/01/23 11:15 [facility] (Rec: 12/01/23 11:28 [facility] [id number]) Cardio Equipment Upper Body Ergometer (UBE) Duration (Minutes) 7 RPM 120 Seat Position 8 Height 2.5 Therapeutic Exercises Standing Exercises shoulder shrugs Standing Exercise Name giorgi and unil Reps/Minutes 5x shoulder roll Standing Exercise Name giorgi and unil Reps/Minutes 5x Manual Therapy Treatment Soft Tissue Mobilization left pec post cuff, periscapular Mobilization Type Cross-Friction,Rolling, Sustained Pressure Intensity/Depth Moderate Body Position sidelyiong UT, c/s Mobilization Type Cross-Friction,Sustained Pressure Intensity/Depth Moderate Body Position Supine Comments also long head biceps cross friction with ed patient Scalenes at lateral clavicle, UT, levator scap, CS paraspinals, intervertebral tissue Mobilization Type Cross-Friction,Rolling, Sustained Pressure Body Position Sitting Joint Mobilizations left GH Joint bilateral GH Direction post, inf Grade II Body Position Hooklying scapular mobilization left shoulder Joint bilaterally Direction depression and adduction Grade III Body Position Sidelying Reps/Duration X10 left first rib Joint 1st rib, AC and SC Direction inf Grade III PT-OP-R Modalities Start: 05/21/23 16:37 Freq: Status: Active Protocol: Document 12/01/23 11:15 [facility] (Rec: 12/01/23 11:28 [facility] [id number]) Hot Pack/Cold Pack Treatment Hot Pack Location c/s Patient Position Hooklying Patient Tolerance Good Infrared Treatment Treatment left shoulder Body Position Sitting Continuous/Pulsed cont Program or Protocal muscle pain and stiffness Comments 6 locations RC, subscap PT-OP-T Assessment and Plan Start: 05/21/23 16:37 Freq: Status: Active Protocol: Document 12/01/23 11:15 [facility] (Rec: 12/01/23 11:28 [facility] [id number]) Physical Therapy Assessment Goals Four Impairment bilateral shoulder pain and dysfunction Impairment Quickdash disability index score 45% Short Term Goal (STG) Improve Quickdash score by at least 50% 10/14/23: 45% today, had been decreased until fall 11/11/23: goal met STG Duration goal met Machine Tester Goal (LTG) Decrease Quickdash score by at least 75% as measure of improved functional activity tolerance 11/11/23: 61%, goal progress LTG Duration 01/18/24 Three Impairment postural dysfunction Impairment forward head, rounded and internally rounded shoulders, forward left shoulder with weakness posterior chain musculature Short Term Goal (STG) Patient to be instructed in postural correction techniques and exercises for improved postural alignment and decreased pain 07/10/23: goal progress 09/04/23: goal met, ongoing progression STG Duration goal met Senior Living Goal (LTG) Patient to be independent and compliant with HEP and demonstrate improved postural alignment statically and dynamically with function 08/21/23: good compliance, mild cues for correct performance. Continue to progress HEP 10/14/23: goal progress 11/11/23 LTG Duration 01/18/24 Two Impairment neck disability index score 28 % Short Term Goal (STG) Decrease neck disability index score to no greater than 20% as measure of improved neck function and activity tolerance 06/30/23 Neck disability index score 17.7 this session 07/10/23: 38% this am 09/04/23: dec to 34% 10/06/23: dec to 29% STG Duration 10/18/23 Machine Tester Goal (LTG) Decrease neck disability index score to no greater than 10% as measure of improved neck function and activity tolerance 08/21/23: goal progress 11/11/23: score 15%, worst with hiking because of looking down so much especially with her eye disorder impacting her vision LTG Duration 01/18/24 One Impairment left sided neck pain as high as 8/10 Short Term Goal (STG) decrease pain to no greater than 5/10 with all usual activities 07/10/23: goal met STG Duration goal met Machine Tester Goal (LTG) decrease pain to no greater than 2/10 with all usual activiites 09/04/23: dec to 4/10 10/06/23: 4/10 at worst but at times min to no pain 11/11/23: 4/10 at worst, but frequency of high level of pain decreasing, most painful with hiking. LTG Duration 01/18/24 Progress Towards Goals Progress Towards Goals Progressing Toward Goals Assessment Summary Assessment Continue UBE, review ex especially focused on postural correction, ex to do while traveling. Patient demonstrated good understanding. Min pain shoulders, neck pain from hiking yesterday. Physical Therapy Plan Frequency and Duration Frequency of Treatment 1x/Week Duration of treatment (weeks) 8 Plan of Care Start Date 11/11/23 Plan of Care End Date 01/11/24 Therapeutic Interventions Therapeutic Interventions Home Exercise Program,Manual Therapy,Neuromuscular Re- education,Patient/Caregiver Education,Self-Care/Home Management,Soft Tissue Mobilization,Taping, Therapeutic Activities, Therapeutic Exercises Modalities Cold Pack/Ice Massage,Electric Stimulation,Hot Packs, Infrared Therapy,Traction- Mechanical,Ultrasound Next Visit Focus/Plan Next Note Type Re-Evaluation Next Visit Plan follow-up when patient returns from 3 week vacation
--- NOTE | 2024-01-08 16:02 | PT.OTRE ---
Current Diagnoses Cervicalgia (01/08/24) Abnormal posture (01/08/24) Past Medical History (Last Reviewed 04/05/22 @ 13:29 by Emilia Thompson MA) Cataract Degenerative myopia Eczema Essential hypertension Foot pain Fractures (1974) Gastrointestinal food allergy Generalized anxiety disorder Hearing loss (1999) Hyperlipidemia Hypothyroidism (~1989) Lichen sclerosus Microscopic colitis Peritonitis (01/15/88) Retinal detachment (~2009) Shoulder pain Sleep apnea (~2003) Tinnitus Surgical History (Last Reviewed 04/05/22 @ 13:29 by Emilia Thompson MA) History of eye surgery (2011) History of gynecologic surgery (01/15/88) History of shoulder surgery (2010) Status post appendectomy (1987) Status post delivery (01/11/88) Status post ovarian cystectomy (03/31/14) Status post tonsillectomy and adenoidectomy (1955) Visit Care Team Role Provider Type Jovanna Dove, MELCHOR, CLIENT SERVICE AND CONSULTING MANAGER Attending Provider Non-Staff Family Provider Primary Care Provider Referring Provider Specialty: Medical Address: [address] [place] [address], [id number] Email: Physical Therapy Re-Evaluation PT-OP-A Visit Information Start: 05/21/23 16:37 Freq: Status: Active Protocol: Document 01/08/24 14:44 SAK (Rec: 01/08/24 15:19 [facility] [id number]) Out-Patient Physical Therapy Visit Information Visit Information Visit Type Treatment Note Visit Start Time 14:35 Visit Stop Time 15:20 Visit Number 28 Number of IP COUNSEL Visits 0 Evaluation Information Evaluation Date 05/22/23 Precautions Precautions can't lay prone PT-OP-B Current Condition Start: 05/21/23 16:37 Freq: Status: Active Protocol: Document 01/08/24 14:44 SAK (Rec: 01/08/24 15:19 SAK [id number]) Current Condition History of Current Condition Current Complaints neck pain and left shoulder pain History of Current Condition HIstory RCR and frozen shoulder, arthritis, some other surgery left shoulder 10 + years ago. Reports chronic pain left sided neck . Went on vacation last fall fell while riding a bike; had shoulder and neck pain, shoulder pain better but neck pain persists. Patient does gentle yoga and exercise class; reports hurt her neck during exercise class , can't do jumping jacks Prior Treatments and Tests massage chiropractor x-ray: mild dynamic instagility at c3-4 level with gr 1 spondylolisthesis on flexion fiex miltilevel c/s spondylosis PT-OP-C Subjective Start: 05/21/23 16:37 Freq: Status: Active Protocol: Document 01/08/24 14:44 SAK (Rec: 01/08/24 15:19 SAK [id number]) OP-PT Subjective Patient Comments Patient Comments stressed due to having kidney stones past week, hasn 't been as good at exercises, and has been on the phone more . At dance class lifting arms over Reports right shoulder pain worse today. During vacation did pretty well using E-bike, except one time had to turn and lift bike, adreniline took over but shoulder hurt more. had lift suitcase until on one way got in line , shoulder hurt worse. FEels needs some more PT to help her recover and make sure able to do exercises correctly. PT-OP-H Neuro Start: 05/21/23 16:37 Freq: Status: Active Protocol: Document 05/22/23 08:12 [facility] (Rec: 05/22/23 09:02 [facility] [id number]) Sensation Evaluation Gross Sensation Gross Sensation WNL PT-OP-J Posture/Palpation/Skin Start: 05/21/23 16:37 Freq: Status: Active Protocol: Document 05/22/23 08:12 [facility] (Rec: 05/22/23 09:02 [facility] [id number]) Posture Evaluation Position Sitting Head/C-Spine Posture Forward Head T-Spine Posture Increased Kyphosis Shoulder Posture (L) Rounded,(R) Rounded Scapula Posture (L) Protracted,(R) Protracted Arm Posture (L) Internally Rotated,(R) Internally Rotated Palpation Assessment Location c/s Palpation Findings Soft Tissue Tightness, Tenderness Palpation Details left lateral c/s upper trap Palpation Findings Soft Tissue Tightness PT-OP-K Range of Motion Start: 05/21/23 16:37 Freq: Status: Active Protocol: Document 06/30/23 12:11 AB (Rec: 06/30/23 16:09 AB [id number]) Cervical Spine Range of Motion Cervical Spine Active Testing Position Seated Flexion 37 Extension 19 Rotation Left 54 Rotation Right 54 Lateral Flexion Left 12 Lateral Flexion Right 19 Comments CS measured with goniometer Visual for seated trunk rotation left 70% right 40% Shoulder Goniometric Range of Motion Shoulder Measured in Degrees Left Testing Position Standing Flexion 145 Abduction 144 External Rotation at 90 degrees 60 Abduction Internal Rotation 67 Comments IR also at 90 deg abduction * ant translation of humerus with IR moves into scaption with abduction measurement Right Testing Position 143 Extension 150 External Rotation at 90 degrees 90 Abduction Internal Rotation 90 Comments * moves into scaption with abduction IR measured at 90 deg abduction also, 8 ant translation of humerus PT-OP-L Special Tests Start: 05/21/23 16:37 Freq: Status: Active Protocol: Document 05/22/23 08:12 [facility] (Rec: 05/22/23 09:02 [facility] [id number]) Special Tests Cervical Spine Special Tests Vertebral Artery Test Results - Alar Ligament Test Results - Foraminal Compression Test Results - Traction Test Results + dec pain Shoulder Special Tests Xiong Trey Impingement Test Results + L Drop Arm Rotator Cuff Test Results - PT-OP-Q Treatments Start: 05/21/23 16:37 Freq: Status: Active Protocol: Document 01/08/24 14:44 SAK (Rec: 01/08/24 16:01 [facility] [id number]) Therapeutic Exercises Sidelying Exercises open book Sidelying Exercise Name HEP Side bilateral Reps/Minutes X5 each side Comments post manual, VC to hold 5 sec Sitting Exercises pulleys Sitting Exercise Name flexion, scaption Comments cues for pain-free ROM, end range stretch, correct set up for home Standing Exercises shoulder shrugs Standing Exercise Name giorgi and unil Reps/Minutes 5x shoulder roll Standing Exercise Name giorgi and unil Reps/Minutes 5x Manual Therapy Treatment Consent Patient gave verbal consent for manual Yes treatment Soft Tissue Mobilization left pec post cuff, periscapular Mobilization Type Cross-Friction,Rolling, Sustained Pressure Intensity/Depth Moderate Body Position Sidelying Scalenes at lateral clavicle, UT, levator scap, CS paraspinals, intervertebral tissue Mobilization Type Cross-Friction,Rolling, Sustained Pressure Body Position Sidelying Joint Mobilizations scapular mobilization left shoulder Joint bilaterally Direction depression and adduction Grade III Body Position Sidelying Reps/Duration X10 Self-Care/Home Management Treatment Education Patient Education Body Mechanics,Home Exercise Program,Posture Other Education gently resume HEP PT-OP-R Modalities Start: 05/21/23 16:37 Freq: Status: Active Protocol: Document 01/08/24 14:44 [facility] (Rec: 01/08/24 16:01 SAK [id number]) Infrared Treatment Treatment left shoulder Body Position Sitting Continuous/Pulsed cont Program or Protocal muscle pain and stiffness Comments 6 locations RC, subscap PT-OP-T Assessment and Plan Start: 05/21/23 16:37 Freq: Status: Active Protocol: Document 01/08/24 14:44 [facility] (Rec: 01/08/24 15:19 [facility] [id number]) Physical Therapy Assessment Goals Five Impairment unable to reach overhead or behind her back without increased pain Supervisor Bakery Sanitation Goal (LTG) Patient will be able to reach overhead and behind her back without increase in pain LTG Duration 02/20/24 Four Impairment bilateral shoulder pain and dysfunction Impairment Quickdash disability index score 45% Short Term Goal (STG) Improve Quickdash score by at least 50% 10/14/23: 45% today, had been decreased until fall 11/11/23: goal met STG Duration goal met Supervisor Bakery Sanitation Goal (LTG) Decrease Quickdash score by at least 75% as measure of improved functional activity tolerance 11/11/23: 61%, goal progress 01/08/24: decreased to 41% , good goal progress. More pain and dysfunction as compared to end november prior to vacation in which using e-bike and lifting luggage. LTG Duration 02/20/24 Three Impairment postural dysfunction Impairment forward head, rounded and internally rounded shoulders, forward left shoulder with weakness posterior chain musculature Short Term Goal (STG) Patient to be instructed in postural correction techniques and exercises for improved postural alignment and decreased pain 07/10/23: goal progress 09/04/23: goal met, ongoing progression STG Duration goal met Custodial Goal (LTG) Patient to be independent and compliant with HEP and demonstrate improved postural alignment statically and dynamically with function 08/21/23: good compliance, mild cues for correct performance. Continue to progress HEP 10/14/23: goal progress 01/08/24: goal progree, complicated by patient's eye disease which causes her to have to be extremely close to phone and other reading material, and when walking have her head down significantly to watch for obstacles. LTG Duration 02/20/24 Two Impairment neck disability index score 28 % Short Term Goal (STG) Decrease neck disability index score to no greater than 20% as measure of improved neck function and activity tolerance 06/30/23 Neck disability index score 17.7 this session 07/10/23: 38% this am 09/04/23: dec to 34% 10/06/23: dec to 29% STG Duration 10/18/23 Supervisor Bakery Sanitation Goal (LTG) Decrease neck disability index score to no greater than 10% as measure of improved neck function and activity tolerance 08/21/23: goal progress 11/11/23: score 15%, worst with hiking because of looking down so much especially with her eye disorder impacting her vision 01/08/24: 31%, increased after vacation, due to stress from medical visits, increased time on phone LTG Duration 02/20/24 One Impairment left sided neck pain as high as 8/10 Short Term Goal (STG) decrease pain to no greater than 5/10 with all usual activities 07/10/23: goal met STG Duration goal met Supervisor Bakery Sanitation Goal (LTG) decrease pain to no greater than 2/10 with all usual activiites 09/04/23: dec to 4/10 10/06/23: 4/10 at worst but at times min to no pain 11/11/23: 4/10 at worst, but frequency of high level of pain decreasing, most painful with hiking. 01/08/24: consistently 4/10 since vacation. LTG Duration 02/20/24 Progress Towards Goals Progress Towards Goals Progressing Toward Goals Assessment Summary Assessment Patient has had an exacerbation due to lifting activities during vacation and also due to stress and increased time on phone from 's health issues over the past week. Feel she needs further PT to decrease her shoulder and neck pain, assure she is performing HEP correctly, and help her resume her prior level of function including the ability to reach overhead and behind her back without an increase in pain. Physical Therapy Plan Frequency and Duration Frequency of Treatment 3 visits Duration of treatment (weeks) 5 Plan of Care Start Date 01/08/24 Plan of Care End Date 02/12/24 Therapeutic Interventions Therapeutic Interventions Home Exercise Program,Manual Therapy,Neuromuscular Re- education,Patient/Caregiver Education,Self-Care/Home Management,Soft Tissue Mobilization,Taping, Therapeutic Activities, Therapeutic Exercises Modalities Cold Pack/Ice Massage,Electric Stimulation,Hot Packs, Infrared Therapy,Traction- Mechanical,Ultrasound Next Visit Focus/Plan Next Note Type Treatment Note Next Visit Plan Review HEP, provide manual therapy and cold laser to neck and shoulder as indicated to improve ROM, soft tissue mobility, and decrease pain
--- NOTE | 2024-01-13 10:17 | PT-OP ANOTE ---
cancelled PT appt, NRG
--- NOTE | 2024-02-10 09:18 | PT.OPDS ---
Current Diagnoses Cervicalgia (01/08/24) Abnormal posture (01/08/24) Visit Care Team Role Provider Type Jovanna Dove, MELCHOR, [employer] Attending Provider Non-Staff Family Provider Primary Care Provider Referring Provider Specialty: Medical [place]: [place], [address] Email: Visit Number Visit Number 28 Discharge Summary PT-OP-B Current Condition Start: 05/21/23 16:37 Freq: Status: Active Protocol: Document 02/10/24 09:04 [facility] (Rec: 02/10/24 09:17 [facility] [id number]) Current Condition History of Current Condition Current Complaints neck pain and left shoulder pain History of Current Condition HIstory RCR and frozen shoulder, arthritis, some other surgery left shoulder 10 + years ago. Reports chronic pain left sided neck . Went on vacation last fall fell while riding a bike; had shoulder and neck pain, shoulder pain better but neck pain persists. Patient does gentle yoga and exercise class; reports hurt her neck during exercise class , can't do jumping jacks Prior Treatments and Tests massage chiropractor x-ray: mild dynamic instagility at c3-4 level with gr 1 spondylolisthesis on flexion fiex miltilevel c/s spondylosis PT-OP-C Subjective Start: 05/21/23 16:37 Freq: Status: Active Protocol: Document 02/10/24 09:04 [facility] (Rec: 02/10/24 09:17 [facility] [id number]) OP-PT Subjective Patient Comments Patient Comments Injured her achilles about 2-3 weeks ago while hiking, had 2 hikes close together as well, has has had pain in L achilles since then. Also did line dancing. But now has been resting. Has been heating and icing, and massaging Wants to be discharged from PT for shoulder and start PT for her L achilles. Has order from Dr Wendy Stoll. PT-OP-H Neuro Start: 05/21/23 16:37 Freq: Status: Active Protocol: Document 05/22/23 08:12 [facility] (Rec: 05/22/23 09:02 [facility] [id number]) Sensation Evaluation Gross Sensation Gross Sensation WNL PT-OP-J Posture/Palpation/Skin Start: 05/21/23 16:37 Freq: Status: Active Protocol: Document 05/22/23 08:12 [facility] (Rec: 05/22/23 09:02 [facility] [id number]) Posture Evaluation Position Sitting Head/C-Spine Posture Forward Head T-Spine Posture Increased Kyphosis Shoulder Posture (L) Rounded,(R) Rounded Scapula Posture (L) Protracted,(R) Protracted Arm Posture (L) Internally Rotated,(R) Internally Rotated Palpation Assessment Location c/s Palpation Findings Soft Tissue Tightness, Tenderness Palpation Details left lateral c/s upper trap Palpation Findings Soft Tissue Tightness PT-OP-K Range of Motion Start: 05/21/23 16:37 Freq: Status: Active Protocol: Document 06/30/23 12:11 [facility] (Rec: 06/30/23 16:09 [facility] [id number]) Cervical Spine Range of Motion Cervical Spine Active Testing Position Seated Flexion 37 Extension 19 Rotation Left 54 Rotation Right 54 Lateral Flexion Left 12 Lateral Flexion Right 19 Comments CS measured with goniometer Visual for seated trunk rotation left 70% right 40% Shoulder Goniometric Range of Motion Shoulder Left Testing Position Standing Flexion 145 Abduction 144 External Rotation at 90 degrees 60 Abduction Internal Rotation 67 Comments IR also at 90 deg abduction * ant translation of humerus with IR moves into scaption with abduction measurement Right Testing Position 143 Extension 150 External Rotation at 90 degrees 90 Abduction Internal Rotation 90 Comments * moves into scaption with abduction IR measured at 90 deg abduction also, 8 ant translation of humerus PT-OP-L Special Tests Start: 05/21/23 16:37 Freq: Status: Active Protocol: Document 05/22/23 08:12 [facility] (Rec: 05/22/23 09:02 [facility] [id number]) Special Tests Cervical Spine Special Tests Vertebral Artery Test Results - Alar Ligament Test Results - Foraminal Compression Test Results - Traction Test Results + dec pain Shoulder Special Tests Xiong Trey Impingement Test Results + L Drop Arm Rotator Cuff Test Results - PT-OP-T Assessment and Plan Start: 05/21/23 16:37 Freq: Status: Active Protocol: Document 02/10/24 09:04 [facility] (Rec: 02/10/24 09:17 [facility] [id number]) Physical Therapy Assessment Goals Five Impairment unable to reach overhead or behind her back without increased pain Mcfp Goal (LTG) Patient will be able to reach overhead and behind her back without increase in pain 02/10/24: goal met LTG Duration 02/20/24 Four Impairment bilateral shoulder pain and dysfunction Impairment Quickdash disability index score 45% Short Term Goal (STG) Improve Quickdash score by at least 50% 10/14/23: 45% today, had been decreased until fall 11/11/23: goal met STG Duration goal met Pond Scaler Goal (LTG) Decrease Quickdash score by at least 75% as measure of improved functional activity tolerance 11/11/23: 61%, goal progress 01/08/24: decreased to 41% , good goal progress. More pain and dysfunction as compared to end november prior to vacation in which using e-bike and lifting luggage. 02/10/24: goal met LTG Duration 02/20/24 Three Impairment postural dysfunction Impairment forward head, rounded and internally rounded shoulders, forward left shoulder with weakness posterior chain musculature Short Term Goal (STG) Patient to be instructed in postural correction techniques and exercises for improved postural alignment and decreased pain 07/10/23: goal progress 09/04/23: goal met, ongoing progression STG Duration goal met Mcfp Goal (LTG) Patient to be independent and compliant with HEP and demonstrate improved postural alignment statically and dynamically with function 08/21/23: good compliance, mild cues for correct performance. Continue to progress HEP 10/14/23: goal progress 01/08/24: goal progree, complicated by patient's eye disease which causes her to have to be extremely close to phone and other reading material, and when walking have her head down significantly to watch for obstacles. 02/10/24: goal met LTG Duration 02/20/24 Two Impairment neck disability index score 28 % Short Term Goal (STG) Decrease neck disability index score to no greater than 20% as measure of improved neck function and activity tolerance 06/30/23 Neck disability index score 17.7 this session 07/10/23: 38% this am 09/04/23: dec to 34% 10/06/23: dec to 29% STG Duration 10/18/23 Pond Scaler Goal (LTG) Decrease neck disability index score to no greater than 10% as measure of improved neck function and activity tolerance 08/21/23: goal progress 11/11/23: score 15%, worst with hiking because of looking down so much especially with her eye disorder impacting her vision 01/08/24: 31%, increased after vacation, due to stress from medical visits, increased time on phone 02/09/24: goal met LTG Duration 02/20/24 One Impairment left sided neck pain as high as 8/10 Short Term Goal (STG) decrease pain to no greater than 5/10 with all usual activities 07/10/23: goal met STG Duration goal met Pond Scaler Goal (LTG) decrease pain to no greater than 2/10 with all usual activiites 09/04/23: dec to 4/10 10/06/23: 4/10 at worst but at times min to no pain 11/11/23: 4/10 at worst, but frequency of high level of pain decreasing, most painful with hiking. 01/08/24: consistently 4/10 since vacation. 02/10/24: goal met LTG Duration 02/20/24 Assessment Summary Assessment Goals mostly met for shoulder and neck, most pressing problem is now left achilles. Will discharge from PT for shoulder today and evaluate achilles in different chart Physical Therapy Plan Discharge Physical Therapy Discharge Reasons Change in Medical Status Discharge Comments will now be seeing for achilles tendon tendonitis
== END 2024-10-11 11:03 | disposition home or self-care (01) ==
LOC: PHYS 14:30
PROVIDERS: Family Provider Nurse Practitioner Family; PCP Nurse Practitioner Family; Referring Provider Nurse Practitioner Family; Visit Provider Nurse Practitioner Family
DX: M54.2 Cervicalgia (principal); R29.3 Abnormal posture
CPT/HCPCS: 97010; 97012; 97014; 97026; 97110; 97140; 97530; 97535; G0283

== ENCOUNTER → 2024-03-29 07:04 | Outpatient (CLI) | payer MEDICARE, OTHER, SELFPAY ==
[2024-03-29 08:22] LABS: C-Reactive Protein Quant < 0.5 mg/dL (<1.0); Cholesterol 161 mg/dL (140-199); HDL Cholesterol 90 mg/dL (40-60); LDL Cholesterol Calculated 61 mg/dL (<100); Triglycerides 51 mg/dL (35-150)
[2024-03-29 08:34] LABS: T4 Total Thyroxine 8.61 ug/dL (5.5-11.0)
[2024-03-29 08:39] LABS: Erythrocyte Sedimentation Rate 4 MM/HR (0-20)
[2024-03-30 07:08] LABS: Thyroid Peroxidase Antibodies 16 IU/mL (0-34)
[2024-03-30 13:51] LABS: Thyroid Stimulating Hormone 2.33 uIU/mL (0.47-4.68)
== END ==
LOC: LAB 07:08
PROVIDERS: Family Provider Nurse Practitioner Family; PCP Nurse Practitioner Family; Referring Provider Nurse Practitioner Family; Visit Provider Nurse Practitioner Family
DX: Z00.00 Encounter for general adult medical examination without abnormal findings (principal); R53.83 Other fatigue; E55.9 Vitamin D deficiency, unspecified; F51.01 Primary insomnia; Z79.52 Long term (current) use of systemic steroids
CPT/HCPCS: 36415; 80061; 82306; 84436; 84443; 85651; 86140; 86376

== ENCOUNTER → 2025-01-11 12:46 | Outpatient (CLI) | payer MEDICARE, OTHER, SELFPAY ==
--- NOTE | 2025-01-11 12:47 | DI.MRI.S_ITS ---
PROCEDURE: MR LUMBAR SPINE WO CON INDICATIONS: Spondylosis without myelopathy or radiculopathy, l TECHNIQUE: Noncontrast sagittal T1 spin echo and T2 fast echo, sagittal STIR, and T2 fast spin echo through the lumbar spine. In cases with scoliosis, additional coronal T2 fast spin echo may be performed. COMPARISON: None. FINDINGS: Image quality: Excellent. Alignment and Curvature: There is normal bony alignment. Bone Marrow: Marrow is of normal overall signal. No acute vertebral body compression fractures. Spinal Cord: Conus medullaris terminates at the L1-2 level. Visualized cord demonstrates normal signal and size. Paraspinous Soft Tissues: No paravertebral masses. T12-L1: Broad-based disc bulge, mild facet hypertrophy and trace effusions . L1-L2: Mild facet hypertrophy and ligamentum flavum hypertrophy with trace effusions. L2-L3: Broad-based disc bulge, facet hypertrophy, ligamentum flavum hypertrophy and facet effusions. L3-L4: Broad-based disc bulge, facet hypertrophy, ligamentum flavum hypertrophy and facet effusions. There is mild spinal canal narrowing. Rica-[id number] right and mild left neural foraminal narrowing. L4-L5: Broad-based disc bulge, ligamentum flavum hypertrophy, facet effusions, facet hypertrophy. Apmz-ey-[id number] spinal canal narrowing. Mild bilateral neural foraminal narrowing. L5-S1: Broad-based disc bulge, facet hypertrophy. IMPRESSION: Multilevel degenerative disc disease and facet arthrosis. Of note: [id number] spinal canal narrowing at L3-4, L4-5. [id number]-kt-[id number] neural foraminal narrowing at L3-4, L4-5. Dictated by: Herbie Malhotra M.D. on 01/12/2025 at 17:37 Approved by: Herbie Malhotra M.D. on 01/12/2025 at 17:39
== END ==
LOC: MRI 12:47
PROVIDERS: Family Provider Nurse Practitioner Family; PCP Nurse Practitioner Family; Referring Provider Physician Assistant Surgical; Visit Provider Physician Assistant Surgical
DX: M47.816 Spondylosis without myelopathy or radiculopathy, lumbar region (principal); M47.817 Spondylosis without myelopathy or radiculopathy, lumbosacral region; M48.061 Spinal stenosis, lumbar region without neurogenic claudication; M51.369 Other intervertebral disc degeneration, lumbar region without mention of lumbar back pain or lower extremity pain; M51.379 Other intervertebral disc degeneration, lumbosacral region without mention of lumbar back pain or lower extremity pain; M53.3 Sacrococcygeal disorders, not elsewhere classified; G89.29 Other chronic pain
CPT/HCPCS: 72148

== ENCOUNTER → 2025-01-11 12:48 | Outpatient (CLI) | payer MEDICARE, OTHER, SELFPAY ==
--- NOTE | 2025-01-11 12:49 | DI.MRI.S_ITS ---
PROCEDURE: MR SHOULDER RT WO CON INDICATIONS: chronic rt shoulder pain TECHNIQUE: Noncontrast oblique coronal T2 fast spin echo with fat saturation, oblique sagittal T1 spin echo and T2 fast spin echo with fat saturation, axial T1 spin echo and T2 fast spin echo with fat saturation through the shoulder. COMPARISON: None. FINDINGS: Quality: Adequate. Tendons: Rotator cuff tendons: Greater than 50 percent thickness interstitial tear of superior 3rd of subscapularis tendon. Multifocal interstitial and articular and insertional tearing of the supraspinatus tendon greater than 50 percent thickness. Long head of biceps tendon: Intact. No dislocation. Muscles: No disproportionate fatty degeneration of the rotator cuff musculature. Acromioclavicular joint: Mild degenerative change. Glenohumeral joint: Labrum: Degenerative signal changes. Cartilage: Multifocal greater than 50 percent thickness cartilage loss along the medial humeral head. Fluid: Small effusion. Capsule: No pericapsular inflammation or scarring. Alignment: No dislocation. Bursa: Subacromial/subdeltoid bursa: Distended. Subcoracoid bursa: Nondistended. Bones: No fracture. Prominent subchondral cyst or intraosseous ganglion in the lesser tuberosity/anterior humeral head. No avascular necrosis. IMPRESSION: High-grade partial-thickness subscapularis tendon tear. High-grade multifocal partial-thickness supraspinatus tendon tearing. Subacromial/subdeltoid bursitis. Acromioclavicular and glenohumeral osteoarthritis. Small glenohumeral effusion. Dictated by: Jose Nunes M.D. on 01/12/2025 at 12:21 Approved by: Jose Nunes M.D. on 01/12/2025 at 12:28
== END ==
LOC: MRI 12:49
PROVIDERS: Family Provider Nurse Practitioner Family; PCP Nurse Practitioner Family; Referring Provider Nurse Practitioner Family; Visit Provider Nurse Practitioner Family
DX: M75.111 Incomplete rotator cuff tear or rupture of right shoulder, not specified as traumatic (principal); M25.511 Pain in right shoulder; M19.011 Primary osteoarthritis, right shoulder; M75.52 Bursitis of left shoulder; M25.411 Effusion, right shoulder; G89.29 Other chronic pain
CPT/HCPCS: 73221

== ENCOUNTER → 2025-01-11 12:50 | Outpatient (CLI) | payer MEDICARE, OTHER, SELFPAY ==
--- NOTE | 2025-01-11 12:51 | DI.MRI.S_ITS ---
PROCEDURE: MR ANKLE LT WO CON INDICATIONS: Pain in left ankle and joints of left foot TECHNIQUE: Noncontrast sagittal T1 spin echo and T2 fast spin echo with fat saturation, axial proton density fast spin echo and T2 fast spin echo with fat saturation, coronal T1 spin echo and T2 fast spin echo with fat saturation through the ankle/hindfoot. COMPARISON: [facility], CR, XR ANKLE 1 OR 2 VIEWS WEIGHT BEARING LEFT, 12/27/2024, 11:32. FINDINGS: Quality: Adequate Extensor tendons: Unremarkable Medial ankle tendons: Posterior tibialis tendon: Intact. Flexor digitorum longus tendon: Intact. Flexor hallucis longus tendon: Intact. Medial ankle ligaments: Deltoid ligament, superficial and deep: Intact Spring ligaments: Intact. Lateral ankle tendons: Peroneus brevis tendon: Intact. Peroneus longus tendon: Linear fluid signal along the course of the tendon at the plantar foot with focal fluid near the insertion. Additional focal increased signal in the retro malleolar and inframalleolar portions.. Lateral ankle ligaments: Tibiofibular ligaments: Intact Anterior talofibular ligament: Intact. Posterior talofibular ligament: Intact. Calcaneofibular ligament: Intact. Achilles tendon: Non insertional Achilles tendon thickening to 9 millimeters with increased intrasubstance signal. Plantar fascia: Unremarkable. Sinus tarsi: Unremarkable. Tarsal tunnel: Unremarkable. Cartilage: No focal defect identified. Bones: No fracture. Joints: No effusion. Other: Gruberi bursa distended.. IMPRESSION: Suspect split tearing of peroneus longus tendon. Achilles tendinopathy. Gruberi bursitis. Dictated by: Jose Nunes M.D. on 01/12/2025 at 15:47 Approved by: Jose Nunes M.D. on 01/12/2025 at 15:51
== END ==
LOC: MRI 12:51
PROVIDERS: Family Provider Nurse Practitioner Family; PCP Nurse Practitioner Family; Referring Provider Podiatrist; Visit Provider Podiatrist
DX: M47.816 Spondylosis without myelopathy or radiculopathy, lumbar region (principal); M25.572 Pain in left ankle and joints of left foot; M71.572 Other bursitis, not elsewhere classified, left ankle and foot; M47.817 Spondylosis without myelopathy or radiculopathy, lumbosacral region; M48.061 Spinal stenosis, lumbar region without neurogenic claudication; M51.369 Other intervertebral disc degeneration, lumbar region without mention of lumbar back pain or lower extremity pain; M51.379 Other intervertebral disc degeneration, lumbosacral region without mention of lumbar back pain or lower extremity pain; M53.3 Sacrococcygeal disorders, not elsewhere classified; M75.111 Incomplete rotator cuff tear or rupture of right shoulder, not specified as traumatic; M25.511 Pain in right shoulder; M19.011 Primary osteoarthritis, right shoulder; M75.52 Bursitis of left shoulder; M25.411 Effusion, right shoulder; G89.29 Other chronic pain
CPT/HCPCS: 72148; 73221; 73721

== ENCOUNTER → 2025-03-09 12:02 | Outpatient (CLI) | payer MEDICARE, OTHER, SELFPAY ==
--- NOTE | 2025-03-09 12:03 | DI.MRI.S_ITS ---
PROCEDURE: MR HIP RT WO CON INDICATIONS: Chronic RT hip pain TECHNIQUE: Noncontrast coronal T1 spin echo and STIR through the bony pelvis. Coronal and axial T2 fast spin echo with fat saturation, sagittal T1 spin echo, and oblique axial T2 fast spin echo with fat saturation through the hip. COMPARISON: [facility], CR, XR HIP 2 VIEWS RIGHT, 10/04/2024, 13:50. FINDINGS: Image quality: Excellent. Bones and joints: Marrow signal of the visualized lower lumbar spine is unremarkable. The sacrum is intact. Mild degenerative changes of bilateral sacroiliac joint, with mild subchondral marrow edema about bilateral inferior sacroiliac joint. No acute fracture or dislocation of either hip. No avascular necrosis of either femoral head. Trace bilateral hip effusion. Mild degenerative change of the right hip with mild subchondral cystic changes in the anterior inferior acetabulum. Joint space of the left hip is grossly well maintained. Tendons and ligaments: The right iliopsoas, adductor, and hamstring tendons are unremarkable. The right gluteal minimus tendon is unremarkable. Mild peritendinitis of the right gluteal medius tendon, at the right greater trochanter, without tear. Trace right greater trochanteric bursitis. Labrum and cartilage: Superior labral tear, extending anteriorly to the anterior superior labrum. No paralabral cyst. Soft tissues: Mild wall thickening of the bladder, which is under distended. Severe sigmoid colon diverticulosis. IMPRESSION: 1. Mild degenerative changes of the right hip. 2. Labral tear of the right hip. No paralabral cyst. 3. Mild peritendinitis of the right gluteal medius. Trace right greater trochanteric bursitis. Dictated by: Kait Stoll M.D. on 03/09/2025 at 15:18 Approved by: Kait Stoll M.D. on 03/09/2025 at 15:26
== END ==
PROVIDERS: Family Provider Nurse Practitioner Family; PCP Nurse Practitioner Family; Referring Provider Orthopaedic Surgery; Visit Provider Orthopaedic Surgery
DX: S73.191A Other sprain of right hip, initial encounter (principal); M76.01 Gluteal tendinitis, right hip; M25.551 Pain in right hip; G89.29 Other chronic pain
CPT/HCPCS: 73721